=== PATIENT | male | born 1960 | race Caucasian/White ===

== ENCOUNTER 2020-05-11 10:58 | Emergency (ER) | payer OTHER, MEDICARE, SELFPAY ==
[2020-05-11 11:05] VITALS: BP 143/82; PULSE 89; RESP 24; TEMP 36.6; O2SAT 96
--- NOTE | 2020-05-11 11:06 | ECG_ITS ---
Measurements Intervals [place] Rate: 88 P: 38 MO: 197 QRS: 50 QRSD: 89 T: 29 QT: 340 QTc: 412 Interpretive Statements SINUS RHYTHM BASELINE ARTIFACT- I, II, AVR, V1 NORMAL ECG Electronically Signed On 05-11-2020 16:33:38 HUMAN SERVICES CASE MANAGER by Austin Arredondo D.O.
--- NOTE | 2020-05-11 11:37 | ED.GENADULT ---
HPI - General Adult General Chief complaint: Chest Pain Stated complaint: chest pain sob Source: patient Mode of arrival: ambulatory Limitations: no limitations History of Present Illness HPI narrative: Patient presents for evaluation of chest pain. He indicates he has experienced symptoms for the last 2 weeks intermittently. Pain is left-sided, described as a dull ache , currently rated 2 out of 10 in severity. He has experienced dyspnea on exertion but denies cough. Chest pain does not radiate. He has noted that it is particularly difficult to breathe after ambulating down the hallway at home. He does have a history of hypertension, hyperlipidemia, diabetes. He has noted some swelling in BLE. He is a former smoker. No recent surgeries. No recent sick contacts. Last ECHO and stress test were about 15 yrs ago per his reports. Related Data Allergies Allergy/AdvReac Type Severity Reaction Status Date / Time No Known Allergies Allergy Verified 05/11/20 11:32 Review of Systems Review of Systems: Narrative: CONSTITUTIONAL: Denies fever, chills, or sweats. EYES: Denies visual changes, redness, or discharge. ENT: Denies rhinorrhea, congestion, sore throat, or otalgia. CARDIOVASCULAR: Reports chest pain and edema in BLE. Denies palpitations. RESPIRATORY: Reports DAMICO. Denies cough. GASTROINTESTINAL: Denies abdominal pain, nausea, vomiting, or diarrhea. GENITOURINARY: Denies dysuria or hematuria. SKIN: Denies rash or itching. MUSCULOSKELETAL: Denies back pain, joint pain, or myalgia. NEUROLOGIC: Denies headache, numbness, dizziness, or weakness. PSYCHIATRIC: Denies anxiety or depression. [facility] Past Medical History Medical History (Updated 05/11/20 @ 11:45 by Gustabo Bailey, ISIDRO, ) BPH with obstruction/lower urinary tract symptoms Chronic depression Chronic neck pain Family history of colon cancer in mother Migraine without aura and without status migrainosus, not intractable Polyp of colon Vitamin B12 deficiency anemia Surgical History Surgical History (Updated 05/11/20 @ 11:40 by Gustabo Bailey, ISIDRO, ) No pertinent past surgical history Family History Family History Mother Patient's mother is in good health Acute myocardial infarction Carcinoma of colon Father Family history of lung cancer Social History Social History Smoking status: Never smoker Alcohol intake: never Exam Narrative: Exam Narrative: GENERAL: Well-appearing, well-nourished, and in no acute distress. HEAD: Normocephalic, atraumatic. EYES: PERRLA and EOMI. ENT: Nares clear, no rhinorrhea or epistaxis. Mucous membranes moist. Oropharynx without tonsillar hypertrophy exudate or other lesions. Bilateral TMs pearly blanton nonbulging NECK: Supple. No adenopathy or masses. No carotid bruits or JVD CHEST: Clear to auscultation. Effort slightly labored. Tachypneic. Diminished breath sounds throughout. HEART: Regular rate and rhythm. No murmur heard. Normal peripheral pulses. ABDOMEN: Soft, nontender, nondistended, normal active bowel sounds. EXTREMITIES: Normal range of motion. No edema. SKIN: Warm, dry, no rash. NEURO: No focal deficits. Alert and oriented x3. PSYCH: Normal mood and affect. Course Course Emergency Course: This is a 59 year-old male that presents with 2-week history left-sided chest pain. He has new onset dyspnea on exertion with bilateral lower extremity swelling. EKG was conducted here that showed normal sinus rhythm with normal axis and intervals. Patient has significant risk factors for coronary artery disease including hypertension, hyperlipidemia, diabetes, positive family history of CAD, and personal hx of smoking. He will need to be evaluated for cardiac enzymes and assessment of potential heart failure. Upon discussion of transfer, pt requested to be seen at [facility].
== END 2020-05-11 11:46 | disposition short-term general hospital (02) ==
PROVIDERS: Emergency Provider Nurse Practitioner; PCP Family Medicine
DX: R07.9 Chest pain, unspecified (principal); N40.0 Benign prostatic hyperplasia without lower urinary tract symptoms; I10 Essential (primary) hypertension; E78.5 Hyperlipidemia, unspecified; E11.9 Type 2 diabetes mellitus without complications; Z87.891 Personal history of nicotine dependence
CPT/HCPCS: 93005; 99215; G0463

== ENCOUNTER 2020-05-13 13:27 | Outpatient (CLI) | payer OTHER, MEDICARE, SELFPAY ==
--- NOTE | 2020-05-13 13:39 | ECHO_ITS ---
Patient Info Name: Royal Nguyen Age: 59 years : 1960 Gender: Male Ht: 70 in Wt: 250 lbs BSA: 2.41 m2 HR: 65 bpm BP: 143 / 95 mmHg Heart Rhythm: Sinus Rhythm Technical Quality: Good Exam Date: 05/13/2020 1:55 PM Exam Location: [facility] Patient Status: Outpatient Admit Date: 05/13/2020 Staff Ordering Physician: Ta Mares MD Commercial Maintenance Technician: Justice Ortiz RDCS Attending Provider: Ta Mares MD Referring Physician: Vishnu CANDELARIA; Exam Type: CA echo doppler color flow Study Info Indications R06.02 - Shortness of breath Complete two-dimensional, color flow and Doppler transthoracic echocardiogram is performed. History/Risk Factors Dyspnea, Pulmonary hypertension. Summary 1. Complete two-dimensional, color flow and Doppler transthoracic echocardiogram is performed. 2. Left ventricular chamber dimension is normal. 3. Left ventricular systolic function is normal, estimated at 55-60%. 4. There is mildly increased left ventricular wall thickness. 5. The left ventricular diastolic function is normal. 6. E/e' 9 is minimally elevated. 7. Left atrial chamber dimension is mildly enlarged. 8. There is mild aortic valve sclerosis. 9. There is mild aortic valve regurgitation. 10. Moderate pulmonary hypertension, estimated pulmonary arterial systolic pressure is 55 mmHg. Left Ventricle E/e' 9 is minimally elevated. Left ventricular chamber dimension is normal. Left ventricular systolic function is normal, estimated at 55-60%. There is mildly increased left ventricular wall thickness. The left ventricular diastolic function is normal. Right Ventricle Right ventricular chamber dimension is normal. Right ventricular systolic function is normal. Left Atria Left atrial chamber dimension is mildly enlarged. Right Atria Right atrial chamber dimension is normal. Aortic Valve The aortic valve is trileaflet. There is mild aortic valve sclerosis. There is no aortic valve stenosis. There is mild aortic valve regurgitation. Pulmonic Valve There is no pulmonic regurgitation. Mitral Valve There is no mitral valve stenosis. There is no mitral valve regurgitation. Tricuspid Valve There is no tricuspid valve regurgitation. Moderate pulmonary hypertension, estimated pulmonary arterial systolic pressure is 55 mmHg. Pericardium/Pleural There is no pericardial effusion. Inferior Vena Cava Normal inferior vena cava with >50% collapse upon inspiration consistent with normal right atrial pressure, 5 mmHg. Aorta The aortic root size at the sinus of Valsalva is normal. Left Ventricular Outflow Tract Name Value Normal LVOT 2D LVOT Diameter 2.0 cm LVOT Doppler LVOT Peak Gradient 5 mmHg LVOT Mean Gradient 3 mmHg LVOT VTI 25 cm LVOT VTI/AV VTI Ratio 0.8 LVOT Stroke Volume 76 ml LVOT CO 5.3 l/min LVOT CI 2.2 l/min/m2 Mitral
== END 2020-05-13 13:28 | disposition home or self-care (01) ==
PROVIDERS: PCP Family Medicine; Visit Provider Family Medicine
DX: R06.00 Dyspnea, unspecified (principal); R07.9 Chest pain, unspecified; I27.20 Pulmonary hypertension, unspecified; I51.7 Cardiomegaly; I35.8 Other nonrheumatic aortic valve disorders
CPT/HCPCS: 93306

== ENCOUNTER 2020-05-16 07:03 | Outpatient (NON) | payer OTHER, MEDICARE, SELFPAY ==
[2020-05-16 18:47] LABS: SARS-CoV-2 RNA PCR Negative
== END 2020-05-16 07:04 ==
PROVIDERS: PCP Family Medicine; Visit Provider Family Medicine
DX: Z20.822 Contact with and (suspected) exposure to COVID-19 (principal); R07.9 Chest pain, unspecified; R06.00 Dyspnea, unspecified
CPT/HCPCS: C9803; U0003; U0005

== ENCOUNTER 2021-08-18 07:54 | Outpatient (CLI) | payer OTHER, MEDICARE, SELFPAY ==
--- NOTE | ~2021-08-18 | CT_ITS ---
EXAMINATION:CT chest high resolution wo ma DATE: 08/18/2021 08:15 INDICATION: Other forms of dyspnea. TECHNIQUE: Computed tomography (CT) of the chest was performed without intravenous contrast. Automate d exposure control and iterative reconstruction technique were employed. The dose-length product (DLP ) was 650.96 mGy-cm. COMPARISON: None. FINDINGS: There is eventration of anterior right hemidiaphragm. There is mild atelectasis in right mi ddle lobe. A calcification in right lung is consistent with old granulomatous disease. There is a 5 m m nodule in lingula, likely benign. No pleural effusion. The heart size is normal. There are coronary artery calcifications. No pericardial effusion. There is mild thoracic spondylosis. There is mild ch ronic anterior wedging of multiple midthoracic vertebral bodies. IMPRESSION: 1. Eventration of anterior right hemidiaphragm with mild atelectasis in right middle lobe. Reviewed, dictated and finalized at location B. IMPRESSION: 1. Eventration of anterior right hemidiaphragm with mild atelectasis in right m iddle lobe.
--- NOTE | ~2021-08-18 | US_ITS ---
EXAMINATION: US right upper quadrant EXAM DATE: 08/18/2021 08:51 INDICATION: R74.8 - Abnormal levels of other serum enzymes. TECHNIQUE: Multiple grayscale and Doppler images of the abdomen right upper quadrant were obtained (b y a technologist who performed the scan) and subsequently reviewed. There is no prior study for carlos dunlap. FINDINGS: The pancreatic head and body are normal in appearance. The pancreatic tail is not visualized. Mildl y echogenic liver parenchyma, hepatic steatosis. There are no focal liver lesions identified. Ther e is no evidence of intrahepatic biliary duct dilation. Portal venous flow was seen in the hepatoped al, normal direction and has normal Doppler waveform. No right-sided hydronephrosis. Common bile duct measures 4 mm, which is normal. The gallbladder wall is normal in thickness, with ex pected amount of distention. No sonographic evidence of pericholecystic fluid. There is cholelithia sis. Technologist performing exam reports patient did not demonstrate sonographic Baldwin's sign. P lease note that this sign is less reliable in patients who have received pain medication. IMPRESSION: 1. Hepatic steatosis. 2. Cholelithiasis. Reviewed, dictated and finalized at location A.
== END 2021-08-18 07:55 | disposition home or self-care (01) ==
LOC: ANHIMG 07:55
PROVIDERS: PCP Family Medicine; Visit Provider Family Medicine
DX: U07.1 COVID-19 (principal); R74.01 Elevation of levels of liver transaminase levels; R91.1 Solitary pulmonary nodule; R06.09 Other forms of dyspnea; I25.10 Atherosclerotic heart disease of native coronary artery without angina pectoris; K76.0 Fatty (change of) liver, not elsewhere classified; K80.20 Calculus of gallbladder without cholecystitis without obstruction
CPT/HCPCS: 71250; 76705

== ENCOUNTER 2021-08-18 14:26 | Outpatient (CLI) | payer OTHER, MEDICARE, SELFPAY ==
--- NOTE | 2021-08-24 15:24 | WPDPFTINT ---
PFT Procedure Performed PFT Procedure Performed Spirometry with Pre/Post Bronchodilator Plethysmography (Lung Vol) Diffusing Cap (DLCO) Flow Vol Loop PFT Interpretation DOS: 08/18/2021 REQUESTING: Dr. Ta Mares REASON FOR TESTING: Post COVID shortness of breath PULMONARY FUNCTION TESTS Results are reliable and reproducible. Spirometry: pre bronchodilator FEV1 is 85% predicted, 2.56 L. This is normal. FVC is 96% predicted, 3.7 L normal. The FEV1/FVC cc ratio is 69% which is within the normal limits. There is no change with bronchodilator administration. Lung volumes: The total lung capacity is 99% predicted, normal. The residual volume is 81%, normal. RV/TLC is 32% in the normal range. Airway resistance increased. Diffusion: DLCO 91%, normal. Flow volume loop: Normal. IMPRESSION: This full pulmonary function test with bronchodilator shows normal spirometry, normal lung volumes, normal diffusion with increased airway resistance. Lack of response to bronchodilator should not preclude use of clinically indicated. Dahlia White MD
== END 2021-08-18 14:27 | disposition home or self-care (01) ==
LOC: ANHPFT 14:29
PROVIDERS: PCP Family Medicine; Visit Provider Family Medicine
DX: U07.1 COVID-19 (principal); R06.00 Dyspnea, unspecified
CPT/HCPCS: 71250; 76705; 94060; 94726; 94729

== ENCOUNTER → 2021-08-24 14:07 | Outpatient (CLI) | payer OTHER, MEDICARE, SELFPAY ==
--- NOTE | ~2021-08-24 | XR_ITS ---
XR chest 2V DATE: 08/24/2021 14:19 INDICATION: Cough. Acute bronchitis. TECHNIQUE: 2 views COMPARISON: None FINDINGS: Normal heart size. No hilar enlargement. There is mild to moderate elevation of the right d iaphragm. No pulmonary infiltrate or consolidation, pleural effusion or pulmonary vascular congestion or pneumothorax. Suture anchors right humeral and left humeral heads. IMPRESSION: No active cardiopulmonary disease Reviewed, dictated and finalized at location A.
== END ==
PROVIDERS: PCP Family Medicine; Visit Provider Family Medicine
DX: J20.9 Acute bronchitis, unspecified (principal)
CPT/HCPCS: 71046

== ENCOUNTER 2021-11-03 11:18 | Outpatient (CLI) | payer OTHER, MEDICARE, SELFPAY ==
--- NOTE | ~2021-11-03 | MR_ITS ---
EXAMINATION: MR brain/brain stem wo con DATE: 11/03/2021 12:22 INDICATION: Worsening headache and ataxia post fall with posterior head impacted 3 weeks prior. TECHNIQUE: Magnetic resonance imaging (MRI) of the brain and brainstem was performed without intraven ous contrast. Sequences included sagittal and axial T1-weighted SE, axial diffusion-weighted FS SE, a xial T2*-weighted GRE, axial 3D SWAN, axial T2-weighted FLAIR, and axial T2-weighted FSE. Apparent di ffusion coefficient (ADC) maps were created. COMPARISON: None. FINDINGS: There are no areas of restricted diffusion to suggest acute infarction. No intracranial hemorrhage or abnormal intracranial mass lesion. There are a couple small foci of nonspecific increased T2-weighte d signal intensity in the left peritrigonal white matter which is within normal limits for age. There are no intraparenchymal signal abnormalities seen on the other pulse sequences. The ventricles are s ymmetric and normal in size. There are no abnormal extra-axial fluid collections. Flow voids are seen in the cerebral arteries on the T2-weighted sequences consistent with their expected patency. Mucosa l thickening at the right maxillary and bilateral ethmoid sinuses. Visualized orbits and soft tissues are unremarkable. There are no areas of abnormal enhancement on the post contrast images. IMPRESSION: 1. A couple small nonspecific foci of white matter T2 hyperintensity in the left peritrigonal white m atter which is within normal limits for age and may represent sequela of chronic small vessel ischemi c disease. No acute/subacute intracranial process. Reviewed, dictated and finalized at location A. IMPRESSION: 1. A couple small nonspecific foci of white matter T2 hyperintensity in the lef t peritrigonal white matter which is within normal limits for age and may repre sent sequela of chronic small vessel ischemic disease. No acute/subacute intrac ranial process.
== END 2021-11-03 11:19 | disposition home or self-care (01) ==
PROVIDERS: PCP Family Medicine; Visit Provider Family Medicine
DX: S06.9X9A Unspecified intracranial injury with loss of consciousness of unspecified duration, initial encounter (principal); R55 Syncope and collapse; R27.0 Ataxia, unspecified
CPT/HCPCS: 70551

== ENCOUNTER 2021-11-13 11:40 | Outpatient (CLI) | payer OTHER, MEDICARE, SELFPAY ==
--- NOTE | ~2021-11-13 | XR_ITS ---
EXAMINATION: XR elbow RT min 3V DATE: 11/13/2021 12:00 INDICATION: Right elbow pain post fall TECHNIQUE: Anteroposterior, two oblique and lateral views of the right elbow were obtained. COMPARISON: None. FINDINGS: Alignment is normal. No fracture. Mild osteoarthritis at the right elbow characterized by minimal non uniform joint space narrowing and tiny marginal osteophytes. Tiny corticated ossicle along the tip of the coronoid process of the proximal ulna.. Mild soft tissue swelling dorsal to the olecranon.. No r ight elbow joint effusion. IMPRESSION: 1. Mild osteoarthritis at the right elbow. No joint effusion or acute osseous abnormality. Reviewed, dictated and finalized at location B. IMPRESSION: 1. Mild osteoarthritis at the right elbow. No joint effusion or acute osseous a bnormality.
== END 2021-11-13 11:41 | disposition home or self-care (01) ==
LOC: CHSIMG 11:44
PROVIDERS: PCP Family Medicine; Visit Provider Family Medicine
DX: M25.521 Pain in right elbow (principal); G89.29 Other chronic pain
CPT/HCPCS: 73080

== ENCOUNTER 2022-01-27 09:00 | Outpatient (CLI) | payer OTHER, MEDICARE, SELFPAY ==
--- NOTE | 2022-01-27 09:23 | ECG_ITS ---
Measurements Intervals [place] Rate: 76 P: 43 [place]: 179 QRS: 49 QRSD: 105 T: 31 QT: 366 QTc: 413 Interpretive Statements SINUS RHYTHM CANNOT RULE OUT SEPTAL INFARCT, AGE INDETERMINATE ABNORMAL ECG COMPARED TO ECG 05/11/2020 11:13:13 CANNOT RULE OUT SEPTAL INFARCT, AGE INDETERMINATE NOW PRESENT Electronically Signed On 01-27-2022 11:27:27 CDT by Austin Arredondo D.O.
== END 2022-01-27 09:01 | disposition home or self-care (01) ==
LOC: ANHLAB 09:04
PROVIDERS: PCP Family Medicine; Visit Provider Family Medicine
DX: I49.9 Cardiac arrhythmia, unspecified (principal); R94.31 Abnormal electrocardiogram [ECG] [EKG]
CPT/HCPCS: 93005

== ENCOUNTER → 2022-10-27 08:36 | Outpatient (CLI) | payer OTHER, MEDICARE, SELFPAY ==
--- NOTE | ~2022-10-27 | XR_ITS ---
EXAMINATION: XR lumbar spine min 4V DATE: 10/27/2022 08:58 INDICATION: Low back pain TECHNIQUE: Anteroposterior, lateral, and bilateral oblique views of the lumbar spine, and cone-down l ateral view of the lumbosacral junction were obtained. COMPARISON: None. FINDINGS: There are changes of anterior and posterior fusion and laminectomy at L4-5. Bone alignment is normal. There is no fracture. There is mild loss of intervertebral disc space height at L3-4. The vertebral body heights are maintained. Small degenerative osteophytes project from the anterior endpl ates of multiple vertebral bodies. There is mild multilevel facet joint osteoarthritis. IMPRESSION: 1. Surgical changes at L4-5 and mild lumbar spondylosis without acute findings. Reviewed, dictated and finalized at location []
== END ==
PROVIDERS: PCP Family Medicine; Visit Provider Family Medicine
DX: G89.29 Other chronic pain (principal); M54.41 Lumbago with sciatica, right side; M54.42 Lumbago with sciatica, left side; M43.06 Spondylolysis, lumbar region; Z98.890 Other specified postprocedural states
CPT/HCPCS: 72110

== ENCOUNTER 2023-07-18 17:01 | Outpatient (CLI) | payer MEDICARE, SELFPAY ==
--- NOTE | ~2023-07-18 | XR_ITS ---
EXAM: XR knee RT min 4V DATE: 07/18/2023 17:31 HISTORY: M25.561 anterior knee pain, cant bear wt, fall 3 days ago . COMPARISON: None available. FINDINGS: Normal mineralization. No fracture or dislocation. No lytic or blastic lesion. Moderate tr icompartmental arthritis. Chondrocalcinosis. Patellar enthesopathy. Large volume joint fluid. No eros ion or periosteal change. Soft tissues within normal limits. IMPRESSION: No acute osseous finding in the right knee. Large right knee joint effusion. Reviewed, dictated and finalized at location K.
== END 2023-07-18 17:02 | disposition home or self-care (01) ==
LOC: ANHIMG 17:03
PROVIDERS: PCP Family Medicine; Visit Provider Family Medicine
DX: M25.461 Effusion, right knee (principal)
CPT/HCPCS: 73564

== ENCOUNTER 2024-03-20 10:49 | Emergency (ER) | payer OTHER, MEDICARE, SELFPAY ==
[2024-03-20] VITALS (25 sets, daily range): BP systolic 87–143; BP diastolic 38–84; PULSE 76–91; RESP 14–24; TEMP 35.8; O2SAT 84–96
--- NOTE | ~2024-03-20 | XR_ITS ---
EXAMINATION: XR elbow LT min 3V DATE: 03/20/2024 13:36 INDICATION: Left elbow injury post fall TECHNIQUE: Anteroposterior, two oblique and lateral views of the left elbow were obtained. COMPARISON: None. FINDINGS: Alignment is normal. No fracture or joint effusion. Mild osteoarthritis at the left elbow. Prominent posterior predominant soft tissue swelling about the elbow pain the distal upper arm and proximal to mid forearm. IMPRESSION: 1. No left elbow joint effusion or acute osseous abnormality. Reviewed, dictated and finalized at location [facility]
--- NOTE | ~2024-03-20 | CT_ITS ---
EXAMINATION: CTA chest PE abdomen pel DATE: 03/20/2024 12:34 INDICATION: This of breath, left rib and upper abdominal pain and elevated d-dimer post fall 2 days p rior. TECHNIQUE: Computed tomography (CT) pulmonary angiogram of the chest was performed with 100 mL Omnipa que-350 intravenous contrast. Additional 3D reconstructions utilizing coronal maximum intensity proje ction (MIP) were performed. CT of the abdomen and pelvis was performed with intravenous contrast util izing the same contrast bolus following a short delay. Automated exposure control and iterative recon struction technique were employed. The dose-length product was 2430.55 mGy-cm. COMPARISON: None FINDINGS: Chest: Suboptimal contrast opacification of the pulmonary arteries which along with moderate scattered respi ratory motion artifact decreases sensitivity in the subsegmental pulmonary arteries and renders evalu ation some of the smaller subsegmental pulmonary arteries nondiagnostic. No central pulmonary embolis m.. Cardiomegaly. No pericardial effusion. Thoracic aorta is normal in caliber with no dissection or acute traumatic aortic injury. No pathologically enlarged thoracic lymphadenopathy. Mild S-shaped cur vature of the thoracic spine with mild upper thoracic levocurvature and mid thoracic dextrocurvature and moderate spondylosis. Suture anchors for rotator cuff repair at the right humeral head. Chronic nonunited fracture of the posterolateral left eighth and ninth ribs. There are multiple acute left-sided rib fractures. This includes a nondisplaced fracture lateral left second rib, mildly disp laced fractures of the anterior and posterior left third and fourth ribs, mildly displaced fracture o f the posterior left fifth rib and across the left sixth and seventh ribs on the anterior and posteri or margins respectively of the chronic nonunited fractures. Additional minimally displaced fractures of the posterior left 10th and 11th ribs. Small left pleural effusion with dependent compressive atel ectasis in the left upper and lower lobes. Elevation of the right hemidiaphragm. Trace right pleural effusion with minimal dependent atelectasis in the right lower lobe. Additional thicker band of disco id atelectasis in the right lower and middle lobes. Small calcified nodule at the left apex consisten t with old granulomatous disease. No pneumonia, pulmonary edema or pneumothorax. Abdomen/pelvis: Liver, gallbladder, pancreas and bilateral adrenal glands are normal. There are few bilateral low-att enuation renal cysts, the largest in the left kidney measuring up to 12 mm. There is a central serpig inous region of likely active contrast extravasation within the spleen which distributes and nearly e quilibrates with the surrounding spleen on the more delayed imaging which suggests an intraparenchyma l laceration with 4.3 x 1.6 cm intraparenchymal hematoma. No evident laceration at the splenic capsul e or perisplenic hematoma. There is extensive colonic diverticulosis with a sigmoid and descending co grace predominance. There is no adjacent inflammatory change to suggest diverticulitis. No bowel obstr uction. Appendix is not visualized and there is a density along the cecum suggesting surgical clip re lated to prior appendectomy. Bladder is normal. No free intraperitoneal gas or fluid. No pathological ly enlarged abdominal or pelvic lymphadenopathy. L4 laminectomy with L4-L5 anterior and posterior spi nal fusion with interbody bone graft cage and bilateral vertical dilcia and pedicle screw fixation. Mild lumbar spondylosis. Bone marrow harvest site at the left posterior iliac spine. No acute osseous abn ormality in the lumbar spine, pelvis or proximal femurs. IMPRESSION: 1. No central pulmonary embolism. Sensitivity decreased in the segmental pulmonary arteries and essen tially nondiagnostic in some of the smaller subsegmental pulmonary arteries due to combination of mot ion artifact and suboptimal contrast opacification. 2. Small left pleural effusion likely evolving hemothorax related to multiple non to mildly displaced left-sided rib fractures. 3. Dependent predominant atelectasis in both lungs likely related to a small left pleural effusion as well as splinting secondary to the rib fractures. 4. Grade 2 splenic injury with <5 cm intraparenchymal splenic hematoma with active contrast extravasa tion. 5. Extensive diverticulosis. 6. Cardiomegaly. Reviewed, dictated and finalized at location B. [facility] IMPRESSION: 1. No central pulmonary embolism. Sensitivity decreased in the segmental pulmon paulo arteries and essentially nondiagnostic in some of the smaller subsegmental pulmonary arteries due to combination of motion artifact and suboptimal contras t opacification. 2. Small left pleural effusion likely evolving hemothorax related to multiple n on to mildly displaced left-sided rib fractures. 3. Dependent predominant atelectasis in both lungs likely related to a small le ft pleural effusion as well as splinting secondary to the rib fractures. 4. Grade 2 splenic injury with <5 cm intraparenchymal splenic hematoma with act jolanta contrast extravasation. 5. Extensive diverticulosis. 6. Cardiomegaly.
--- NOTE | 2024-03-20 11:14 | ECG_ITS ---
Test Date: 2024-03-20 11:30:02 Measurements Intervals [place] Rate: 80 P: 14 [place]: 176 QRS: 67 QRSD: 165 T: 50 QT: 409 QTc: 474 Interpretive Statements SINUS RHYTHM WITH OCCASIONAL VENTRICULAR PREMATURE COMPLEXES RIGHT BUNDLE BRANCH BLOCK BASELINE ARTIFACT- I, II, III, AVR, AVL, AVF, V4-V6 ABNORMAL ECG No previous ECG available for comparison Electronically Signed On 03-20-2024 11:37:26 DATA SPECIALIST by Austin Arredondo D.O.
--- NOTE | 2024-03-20 11:18 | ED.GENADULT ---
HPI - General Adult General Chief complaint: Back Pain/Injury Stated complaint: syncope Time Seen by Provider: 03/20/24 11:12 Source: patient and family Mode of arrival: other Limitations: no limitations History of Present Illness HPI narrative: 63-year-old obese white male had a syncopal episode in the parking lot coming to the hospital after recent fall 2 days ago down 5 steps at home. was helping patient get out of the car when he suddenly went unresponsive and she helped him to the ground. He has a history of orthostatic hypotension he was nonresponsive for about 15-20 seconds. Then after he woke up it took him about 30-45 seconds to the become alert. There was no postictal state or seizure activity. Same thing happened to him 3 years ago the thought was related to orthostatic hypotension he has had several falls he just felt 2 days ago down 5 steps when he lost his balance injuring his left ribs and left upper extremity causing ecchymosis and difficulty getting up because of the pain. He is on Eliquis for atrial fib diagnosed this past May. Now complains of pain left rib area there is left arm. He sustained a small abrasion to his left knee but denies any pain there. 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 He also was seen in [facility] 8 days ago when 1-2 days prior to that they noted she had slurred speech was confused and had some weakness on the right side. stated that they did MRI that showed a possible stroke low TSH and high vitamin B level. He was started on thyroid medicine , Synthroid and his amiodarone was changed to Cardizem. patient and called their primary care provider yesterday and was told to go the emergency room yesterday. He thought he would get better so he waited until today to come to the hospital. Patient says it hurts to breathe because of pain in his left ribs. Denies any other injury. patient is on [place] 10 up to 6 times a day he has already taken 2 today he is on diazepam 10 mg he took that this morning. Denies any nausea vomiting or diarrhea he has been eating solid foods but not been drinking as much because he does not want have to get up to go the bathroom this hurts so bad. Denies any black stools or melena rash or itching weakness or numbness or paresthesias he has got chronic low back pain denies any other injuries. He also has been taking some ibuprofen since he has fall. Past medical history: AFib on Eliquis since May congestive heart failure orthostatic hypotension hypertension obesity on metformin Past surgical history right shoulder surgery x5 left shoulder x4 back surgery appendectomy ankle surgery At allergies no known drug allergies Related Data Home Medications Medication Instructions Recorded Confirmed apixaban 5 mg tablet (Eliquis) 5 mg PO BID 05/20/23 03/20/24 diltiazem HCl 120 mg capsule,24 120 mg PO DAILY 03/14/24 03/20/24 hr,extended release levothyroxine 125 mcg tablet 125 mcg PO DAILY 03/14/24 03/20/24 irbesartan 150 mg tablet 150 mg PO DAILY 03/20/24 03/20/24 Allergies Allergy/AdvReac Type Severity Reaction Status Date / Time No Known Allergies Allergy Verified 03/20/24 11:32 Review of Systems Review of Systems: All systems reviewed & are unremarkable except as noted in HPI and below PMFSH Past Medical History Medical History Abnormal fasting glucose fasting glucose 102 with hemoglobin A1c 6.0 on 04/28/2021 Acute bronchitis Acute pain of right knee (07/15/23) x-ray on 07/18/2023 reveals moderate osteoarthritis with large joint effusion. No fracture. Aortic regurgitation Arrhythmia (01/27/22) At moderate risk for fall (~2021) Ataxia BMI 34.0-34.9,adult BMI 36.0-36.9,adult BMI 37.0-37.9, adult BMI 38.0-38.9,adult BMI 39.0-39.9,adult BPH with obstruction/lower urinary tract symptoms Cervical spondylosis with myelopathy Chest pain Cholelithiasis gallstones on ultrasound 08/18/2021. Chronic constipation Chronic depression Chronic neck pain CT of cervical spine in the ER 02/28/2022 with multilevel degenerative disc disease and spondylosis worse at C6-C7 and C7-T1. Chronic pain of right elbow (~07/2021) X-ray on 11/13/2021 reveals mild osteoarthritis with soft tissue swelling but no effusion. Closed head injury with brief loss of consciousness (~10/06/21) MRI of the brain on 11/03/2021 was unremarkable except for changes of chronic small vessel disease. Controlled diabetes mellitus Glucose 102 with hemoglobin A1c 5.8 on 04/28/2022. glucose 101 with hemoglobin A1c 5.4 on 04/28/2023.Glucose 92 with hemoglobin A1c 5.4 and urine microalbumin ratio of 3 on 11/11/2023. Coronary artery calcification seen on CAT scan (08/18/21) calcifications of the coronary arteries noted on CT of the chest 08/18/21 . Normal cardiac catheterization January,. COVID-19 (05/22/21) symptoms started and positive test on 05/22/2021 COVID-19 (12/04/21) 2nd episode unvaccinated, tested positive 12/05/2021. COVID-19 long hauler manifesting chronic dyspnea CT of the chest on 08/18/2021 with elevated right hemidiaphragm and mild atelectasis of the right middle lobe with calcified nodule right lung and 5 mm nodule of the lingula with degenerative changes of the thoracic spine and coronary artery calcifications. Diastolic dysfunction with acute on chronic heart failure (05/17/23) echocardiogram on 05/18/2022 with diastolic dysfunction with ejection fraction 65-70% and mild aortic stenosis. Hospitalist admission for acute CHF 05/17/2023. Dyspnea on exertion Elevated hemidiaphragm Elevated liver enzymes (04/28/21) AST 87, ALT 94 on 04/28/2021. AST 83 with ALT 122 on 07/24/2021. GGT 25, AST 31 and ALT 34 on 08/18/2021. AMA less than 20. hepatitis A,B, and C screening negative on 08/18/2021. ADRIANNE positive with Sjogren's antibodies. AST 73 with ALT 93 on 04/28/2022. His AST 45 and ALT 75 on 07/14/2022. GGT elevated at 80 with AST 41 and ALT 71 on 04/28/2023. GGT 39, AST 22, ALT 28 on 11/11/2023. Encounter for prostate cancer screening PSA 0.35 on 04/28/2021. PSA 0.34 on 04/28/2022. 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 Amiodarone discontinued. Insomnia Male erectile dysfunction, unspecified Migraine without aura and without status migrainosus, not intractable Nonalcoholic fatty liver disease Fatty liver on 08/18/2021 ultrasound. Obesity (BMI 30-39.9) Obstructive sleep apnea Paroxysmal atrial fibrillation (05/17/23) Polyp of colon Pulmonary hypertension Refractory obstruction of nasal airway (~01/27/21) Sjogrens syndrome (08/18/21) ADRIANNE positive with SS- A > 8.0 and SS -B > 8.0 with possible Sjogren's syndrome Syncope and collapse TIA (transient ischemic attack) (~03/2024) possible TIA with right hemiparesis, slurred speech evaluated 03/12/2024. MRI of the brain and CT of the brain unremarkable. Vitamin B12 deficiency anemia vitamin B12 level normal at 737 on 04/28/2021. Normal at 1842 on 04/28/2022. Normal at 1126 with hemoglobin 15.0 on 11/11/2023. Worsening headaches Surgical History Surgical History History of back surgery History of nasal surgery History of shoulder surgery No pertinent past surgical history Family History Family History Mother Patient's mother is in good health Acute myocardial infarction Carcinoma of colon Heart disease Father Family history of lung cancer Sibling Diabetes mellitus Hypertension Cerebrovascular accident Social History Social History Smoking status: Former smoker Alcohol intake: current Substance use: never Substance use type: does not use Current Housing: Decline to Answer Concerned About Future Housing: Decline to Answer Difficulty Paying Gas/Electric Bills: Decline to Answer Difficulty Paying for Meds: Decline to Answer Currently Unemployed: Decline to Answer Education: Decline to Answer Difficulty w/ Childcare or Family Care: Decline to Answer Living arrangements: with family Gender identity (if verbalized by the patient): Male Exam Narrative: White male with no distress at rest but when he tries to move to sit up he complains of moderately severe pain on his left lateral chest wall. blood pressure supine 118/65 with pulse 78 standing blood pressure 87/62 with pulse of 91. Respirations were 22 temp 96.4? O2 sat 90% On room air.?Head:? Normocephalic atraumatic.? Eyes conjunctiva pink sclera nonicteric.? Ears externally normal.? Oropharynx is clear with moist mucous membranes no exudates.? Neck is supple no lymphadenopathy nontender full range of motion.? Back is nontender.? Chest left anterior lateral chest wall tender without crepitations..? Lungs are clear without wheezes rales or rhonchi.? Heart is regular rate rhythm without murmurs gallops or rubs.? Abdomen Morbidly obese soft and nontender no hepatosplenomegaly or masses no CVA tenderness no abdominal bruits. he has a small abrasion on healing scab on the right upper quadrant which is nontender.? Extremities no cyanosis clubbing or edema.? left posterior lower arm and upper forearm and elbow ecchymotic mildly tender mildly warm full range of motion. Left knee has a small abrasion superficial which is nontender. his knee is full range of motion stable to all forces and nontender. Neurological she is alert and oriented x4 motor and sensory grossly intact.? Skin is warm and dry without lesions. Does have some diaphoresis of his forehead. He has a very difficult time sitting up in the bed because of his left chest wall pain. Course Vital Signs Vital signs: Vital Signs Temperature 35.8 C L 03/20/24 10:49 Pulse Rate 81 03/20/24 10:49 Respiratory Rate 22 H 03/20/24 10:49 Blood Pressure 143/84 H 03/20/24 10:49 Pulse Oximetry 90 03/20/24 10:49 Oxygen Delivery Room Air 03/20/24 10:49 Temperature 35.8 C L 03/20/24 10:49 Pulse Rate 83 03/20/24 12:43 Respiratory Rate 22 H 03/20/24 12:43 Blood Pressure 119/77 03/20/24 12:01 Pulse Oximetry 92 03/20/24 12:01 Oxygen Delivery Nasal Cannula 03/20/24 11:38 Oxygen Flow Rate 3.5 03/20/24 11:38 Medical Decision Making [facility] Narrative Medical decision making narrative: ?Patient placed in room: Seven with his ? History and physical was performed. CTA chest, CT abdomen and pelvis with IV contrast: negative PE small left pleural effusion likely a valving hemothorax related to multiple non to mildly displaced left rib fractures dependent atelectasis grade 2 splenic injury less than 5 cm intraparenchymal splenic hematoma with active contrast extravasation cardiomegaly diverticulosis. Per radiologist D-dimer 2.31 ABGs pH 7.39 PO2 of 67.6 O2 sat 91.8 bicarb 23.8 on 3.5 L per minute CBC:? H&H 13.1 and 39.5, with normal WBCs and platelets.? Coags Lactic acid and alcohol, troponin normal, ?proBNP 129, magnesium 1.5, BUN 23, rests CMP is normal. X-ray left elbow showed no fracture mild degenerative changes as independently interpreted by me. And x-ray per radiologist of the elbow was negative. Independent Historian: External Source Review: Review of office visit from his primary care last October showed he has a history of chronic bilateral low back pain insomnia, paroxysmal atrial fib diastolic dysfunction with acute on chronic heart failure, chronic constipation high risk for falls, diabetes type 2 without complications, syncope and collapse coronary artery calcifications seen on CT scan August 18, 2021 obstructive sleep apnea with noncompliance with follow through on treatment migraine BPH chronic depression vitamin B12 deficiency anemia chronic neck pain and shoulder pain severe osteoarthritis of both shoulders hypertension occurred mixed hyperlipidemia seasonal allergic rhinitis. Differential Dx includes but not limited to: orthostatic hypotension fractured ribs fractured arm coagulopathy intracerebral hemorrhage fractures pneumonia Medications were Reviewed: home meds reviewed Medications given:Normal saline 1 L bolus, magnesium 2 g IV, Neosporin to left knee abrasion, normal saline 125 mL/hour. Independently Interpreted by me: EKG sinus rhythm with occasional PVC right bundle branch block baseline artifact heart rate 80.? Impression abnormal EKG. ?Independently interpreted by me. Elbow x-ray above Shared decision Making: Evaluation was discussed with the patient his all questions were asked and answered they agree with plan to transfer to [facility] to Dr. Nelson who accepted transfer at 1:44 p.m. Per electronic funds transfer coordinator Effie MATT. Social Situation Impacting Patients Care: Noncompliance, PCP told him to go to ED yesterday. Discussed with Effie MATTpowder core tester nurse coordinator DISCHARGE DIAGNOSIS: recent fall, left rib fractures multiple , grade 2 splenic injury with less than 5 cm intraparenchymal splenic hematoma withactive extravasation, hypomagnesemia, orthostatic hypotension syncope, volume depletion, left elbow injury contusion DISPOSITION : transfer to [facility] CONDITION AT DISCHARGE: stable Vital Signs Vital Signs: Vital Signs Temperature 35.8 C L 03/20/24 10:49 Pulse Rate 81 03/20/24 10:49 Respiratory Rate 22 H 03/20/24 10:49 Blood Pressure 143/84 H 03/20/24 10:49 Pulse Oximetry 90 03/20/24 10:49 Oxygen Delivery Room Air 03/20/24 10:49 Temperature 35.8 C L 03/20/24 10:49 Pulse Rate 83 03/20/24 12:43 Respiratory Rate 22 H 03/20/24 12:43 Blood Pressure 119/77 03/20/24 12:01 Pulse Oximetry 92 03/20/24 12:01 Oxygen Delivery Nasal Cannula 03/20/24 11:38 Oxygen Flow Rate 3.5 03/20/24 11:38 Lab Data 03/20/24 11:35 03/20/24 11:35 Labs: Lab Results 03/20/24 03/20/24 03/20/24 Range/Units 11:30 11:35 11:36 WBC 9.5 (4.8-10.8) K/mm3 RBC 4.28 L (4.70-6.10) M/mm3 Hgb 13.1 L (14.0-18.0) g/dL Hct 39.5 L (40.0-54.0) % MCV 92.3 (78.0-102.0) fL MCH 30.6 (27.0-31.0) pg MCHC 33.2 (32-36) g/dL RDW 13.6 (11.6-14.4) % Plt Count 172 (150-420) K/mm3 MPV 9.2 (8.7-11.0) fl PT 11.1 (9.50-12.1) Seconds INR 1.0 APTT 27.2 (23.9-30.70) Sec D-Dimer 2.31 H* (0.19-0.50) mg/L Sodium 139 (136-145) mmol/L Potassium 4.1 (3.5-5.1) mmol/L Chloride 102 (98-108) mmol/L Carbon Dioxide 27 (21-32) mmol/L Anion Gap 10 (4-12) mmol/L BUN 23 H (7-18) mg/dL Creatinine 1.09 (0.70-1.30) mg/dL Estim Creat Clear Calc Not Reportable Estimated GFR > 60 (59 - ) Glucose 112 H (70-99) mg/dL Calculated Osmolality 292 (285-295) mOsm/kg Lactic Acid 1.5 (0.4-2.0) mmol/L Calcium 8.9 (8.5-10.1) mg/dL Magnesium 1.5 L (1.8-2.4) mg/dL Total Bilirubin 0.8 (0.00-1.00) mg/dL AST 26 (15-37) U/L ALT 46 (16-63) U/L Alkaline Phosphatase 65 (46-116) U/L Troponin I 6.7 (0.00-60.4) ng/L NT-Pro-B Natriuret Pep 129 H (0-125) pg/mL Total Protein 7.1 (6.4-8.2) g/dL Albumin 3.0 L (3.4-5.0) g/dL Ethyl Alcohol < 3 (0-6) mg/dL ABG Data ABG results: 03/20/24 11:17 Puncture Site Right radial ABG pH 7.39 ABG pCO2 40.2 ABG pO2 67.6 L ABG PO2/FiO2 Ratio Not Reportable ABG HCO3 23.8 ABG O2 Saturation 91.8 L ABG O2 Content 17.5 ABG Base Excess -1.0 L A-a Gradient Not Reportable Oxyhemoglobin 90.9 L Total Hemoglobin Not Reportable O2 Delivery Device Nasal cannula O2 Liters/Min 3.5 Discharge Plan Discharge Clinical Impression: Fall down stairs, Syncope and collapse, Multiple fractures of ribs of left side, Spleen hematoma, Acute hypotension, Pleural effusion on left, Hypomagnesemia, Contusion of elbow, left Patient Disposition: Acute Care Hospital Condition: Stable Additional Instructions: accepted to [facility] in [place] by ground ambulance by Dr. Nelson ED Prescriptions: No Action irbesartan 150 mg tablet 150 mg PO DAILY (DME) Blood Glucose Test Strip See Rx Instructions .ROUTE .MEDSUPPLY Qty: 100 3RF Rx Instructions: to test blood glucose once daily (DME) blood-glucose meter Kit See Rx Instructions .Route Qty: 1 0RF Rx Instructions: use to check blood glucose once daily (DME) lancets [BD Ultra Fine Lancets] 33 gauge misc See Rx Instructions .Route Qty: 100 3RF Rx Instructions: use to check blood sugar once daily sildenafil [Viagra] 100 mg tablet 100 mg PO DAILY PRN (Reason: sexual activity) Qty: 90 1RF Rx Instructions: administer 30 minutes to 4 hours before activity fuchs pay with good Rx discount Ozempic 2 mg/dose (8 mg/3 mL) pen injector 2 mg subcut WEEKLY Qty: 3 11RF (DME) pen needle, diabetic [BD Ultra-Fine Micro Pen Needle] 32 gauge x 1/4 needle See Rx Instructions .Route Qty: 50 2RF Rx Instructions: use once weekly with ozempic omeprazole 20 mg capsule,delayed release(DR/EC) 20 mg PO BID Qty: 180 3RF metformin 500 mg tablet extended release 24 hr 500 mg PO DAILY Qty: 90 3RF loratadine 10 mg capsule 10 mg PO BID PRN (Reason: allergy symptoms) Qty: 180 3RF polyethylene glycol 3350 [Miralax] 17 gram/dose powder 17 g PO DAILY Qty: 510 11RF Eliquis 5 mg tablet 5 mg PO BID Patient Comments: started during hospitalization 05/20/2023. sumatriptan succinate [Imitrex] 50 mg tablet See Rx Instructions PO .COMPLEX Qty: 21 11RF Rx Instructions: take 1 tab at onset of headache; if no relief may repeat 1 tab after at least 2 hrs; max = 4 tabs/24 hr PO duloxetine 60 mg capsule,delayed release(DR/EC) 60 mg PO BID Qty: 180 3RF atorvastatin 20 mg tablet 20 mg PO DAILY Qty: 90 3RF mometasone 50 mcg/actuation spray,non-aerosol 1 spray intranasal BID Qty: 51 3RF Rx Instructions: administer into each nostril tamsulosin [Flomax] 0.4 mg capsule 0.4 mg PO . B.i.d. Qty: 180 3RF methocarbamol 500 mg tablet 250 mg PO BID PRN (Reason: muscle spasms) Qty: 90 3RF diazepam 10 mg tablet 10 mg PO BID PRN (Reason: muscle spasm) Qty: 180 1RF zolpidem 10 mg tablet 10 mg PO HS PRN (Reason: insomnia) Qty: 30 5RF diltiazem HCl 120 mg capsule,extended release 24 hr 120 mg PO DAILY Patient Comments: started during hospitalization for TIA 03/12/2024. levothyroxine 125 mcg tablet 125 mcg PO DAILY Patient Comments: started during hospitalization 03/13/2024. hydrocodone-acetaminophen 10-325 mg tablet 1 tablet PO Q4-6H PRN (Reason: pain) Qty: 180 0RF Follow-up/Referrals: Ta Mares MD [Primary Care Provider] -
--- NOTE | 2024-03-20 11:30 | PC.NURSE ---
Pt receiving IV fluids. Resting well in room on cot. No complaints at this time.
[2024-03-20 11:35] LABS: HCO3 ABG 23.8 mmol/L (23-29); Oxygen Content ABG 17.5 %vol (16.0-22.0); Oxygen Saturation ABG 91.8 % (95-97); Oxyhemoglobin 90.9 % (94-100); PCO2 ABG 40.2 mmHg (35-45); PO2 ABG 67.6 mmHg (80-90); pH ABG 7.39 (7.35-7.45)
[2024-03-20 11:36] LABS: Device NASAL CANNULA; Liters per Minute 3.5 LPM; Modified Allen's Test Pass; Site Drawn RIGHT RADIAL
[2024-03-20 11:40] LABS: Hematocrit 39.5 % (40.0-54.0); Hemoglobin 13.1 g/dL (14.0-18.0); Mean Corpuscular HGB Conc 33.2 g/dL (32-36); Mean Corpuscular Hemoglobin 30.6 pg (27.0-31.0); Mean Corpuscular Volume 92.3 fL (78.0-102.0); Mean Platelet Volume 9.2 fl (8.7-11.0); Platelet Count Result 172 K/mm3 (150-420); Red Blood Count 4.28 M/mm3 (4.70-6.10); Red Cell Distribution Width 13.6 % (11.6-14.4); White Blood Count 9.5 K/mm3 (4.8-10.8)
[2024-03-20 11:56] LABS: Partial Thromboplastin Time 27.2 Sec (23.9-30.70); Prothrombin Time 11.1 Seconds (9.50-12.1)
[2024-03-20 11:59] LABS: Lactic Acid Reflex 1.5 mmol/L (0.4-2.0)
[2024-03-20] MEDS: SODIUM CHLORIDE 0.9% IV 1,000 ML 999 ML IV CONT (11:59)
[2024-03-20 12:05] LABS: Magnesium 1.5 mg/dL (1.8-2.4)
[2024-03-20 12:06] LABS: Ethanol < 3 mg/dL (0-6)
[2024-03-20 12:07] LABS: NT Pro B Type Natriuretic Pept 129 pg/mL (0-125)
[2024-03-20 12:07] LABS: Anion Gap 10 mmol/L (4-12); Blood Urea Nitrogen 23 mg/dL (7-18); Carbon Dioxide 27 mmol/L (21-32); Chloride 102 mmol/L (98-108); Estimated Glomerular Filt Rate > 60; Glucose 112 mg/dL (70-99); Osmolality Calculated 292 mOsm/kg (285-295); Potassium 4.1 mmol/L (3.5-5.1); Sodium 139 mmol/L (136-145)
[2024-03-20 12:08] LABS: Alanine Aminotransferase 46 U/L (16-63); Alkaline Phosphatase 65 U/L (46-116); Aspartate Amino Transferase 26 U/L (15-37); Bilirubin,Total 0.8 mg/dL (0.00-1.00); Calcium 8.9 mg/dL (8.5-10.1); Total Protein 7.1 g/dL (6.4-8.2)
[2024-03-20 12:16] LABS: D Dimer 2.31 mg/L (0.19-0.50)
[2024-03-20 12:24] LABS: Troponin I 6.7 ng/L (0.00-60.4)
[2024-03-20] MEDS: MAGNESIUM SULF 2 GM/WATER 50ML 2 GM/50 ML BAG IVPB (12:40)
--- NOTE | 2024-03-20 12:50 | PC.NURSE ---
Pt back in room from CT scan. Resting comfortable on cot, dozing off between visits from RN. Pt left and will return within the hour. MD awaiting CT results for further decision making.
[2024-03-20] MEDS: SODIUM CHLORIDE 0.9% IV 1,000 ML 125 ML IV CONT (14:16)
== END 2024-03-20 14:41 | disposition short-term general hospital (02) ==
PROVIDERS: Emergency Provider Emergency Medicine; PCP Family Medicine
DX: R55 Syncope and collapse (principal); S22.42XA Multiple fractures of ribs, left side, initial encounter for closed fracture; S36.029A Unspecified contusion of spleen, initial encounter; I95.9 Hypotension, unspecified; J90 Pleural effusion, not elsewhere classified; E83.42 Hypomagnesemia; S50.02XA Contusion of left elbow, initial encounter; I48.91 Unspecified atrial fibrillation; E11.9 Type 2 diabetes mellitus without complications; I11.0 Hypertensive heart disease with heart failure; I50.9 Heart failure, unspecified; Z79.01 Long term (current) use of anticoagulants; Z87.891 Personal history of nicotine dependence; W10.9XXA Fall (on) (from) unspecified stairs and steps, initial encounter
CPT/HCPCS: 36415; 36600; 71275; 73080; 74177; 80053; 82077; 82805; 83605; 83735; 83880; 84484; 85018; 85027; 85380; 85610; 85730; 93005; 96361; 96365; 96366; 99285; J3475; J7030; Q9967

== ENCOUNTER 2024-09-17 10:02 | Emergency (ER) | payer OTHER, MEDICARE, SELFPAY ==
[2024-09-17 10:17] VITALS: BP 162/79; PULSE 50; RESP 16; TEMP 36.4; O2SAT 94
--- NOTE | 2024-09-17 10:19 | ED_ITS ---
HPI - Dental/Oral General Chief complaint: Dental/Oral Stated complaint: Facial Swelling/Left Side Time Seen by Provider: 09/17/24 10:36 Mode of arrival: ambulatory Limitations: no limitations History of Present Illness HPI Narrative: 63-year-old male presents with for swelling to the left side of his face that he noticed this morning when he woke up. He denies dental pain. He reports that it is tender when he pushes on it. Denies redness, warmth. He denies ear pain, drainage from the ear. Related Data Home Medications Medication Instructions Recorded Confirmed Last Taken Type irbesartan 150 mg tablet 150 mg PO DAILY 03/20/24 08/21/24 03/20/24 History 0900 furosemide 20 mg tablet mg 09/17/24 Unknown History Allergies Allergy/AdvReac Type Severity Reaction Status Date / Time No Known Allergies Allergy Verified 03/20/24 11:32 Review of Systems Review of Systems: CONSTITUTIONAL: Denies malaise, chills, sweats, or fever. EYES: Denies visual changes ENT: Denies rhinorrhea, congestion, sinus pain, otalgia or sore throat. Denies dental pain. Reports swelling in front of the left ear CARDIOVASCULAR: Denies chest pain, palpitations RESPIRATORY: Denies cough or dyspnea. SKIN: Denies rash or itching. MUSCULOSKELETAL: Denies myalgia. NEUROLOGIC: Denies numbness, weakness, or headache. All systems reviewed & are unremarkable except as noted in HPI and below PMFSH Past Medical History Medical History (Updated 09/17/24 @ 10:46 by Tierney Meadows NP) Alcohol abuse (~08/21/24) reports patient is drinking 1/5 of liquor daily 08/21/2024. TIA (transient ischemic attack) (~03/2024) possible TIA with right hemiparesis, slurred speech evaluated 03/12/2024. MRI of the brain and CT of the brain unremarkable. 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 Amiodarone discontinued. TSH 4.5 with free T4 1.3 on 05/08/2024. BMI 34.0-34.9,adult Insomnia Acute pain of right knee (07/15/23) x-ray on 07/18/2023 reveals moderate osteoarthritis with large joint effusion. No fracture. Elevated hemidiaphragm Paroxysmal atrial fibrillation (05/17/23) Diastolic dysfunction with acute on chronic heart failure (05/17/23) echocardiogram on 05/18/2022 with diastolic dysfunction with ejection fraction 65-70% and mild aortic stenosis. Hospitalist admission for acute CHF 05/17/2023. Male erectile dysfunction, unspecified Chronic constipation At moderate risk for fall (~2021) Cervical spondylosis with myelopathy Encounter for prostate cancer screening PSA 0.35 on 04/28/2021. PSA 0.34 on 04/28/2022. PSA 0.39 on 05/08/2024. Controlled diabetes mellitus Glucose 102 with hemoglobin A1c 5.8 on 04/28/2022. glucose 101 with hemoglobi n A1c 5.4 on 04/28/2023.Glucose 92 with hemoglobin A1c 5.4 and urine microalbumin ratio of 3 on 11/11/2023. Glucose 98, hemoglobin A1c 5.5, microalbumin ratio of 6 with GFR 98 on 05/08/2024. Worsening headaches Arrhythmia (01/27/22) COVID-19 (12/04/21) 2nd episode unvaccinated, tested positive 12/05/2021. Chronic pain of right elbow (~07/2021) X-ray on 11/13/2021 reveals mild osteoarthritis with soft tissue swelling but no effusion. Closed head injury with brief loss of consciousness (~10/06/21) MRI of the brain on 11/03/2021 was unremarkable except for changes of chronic small vessel disease. Ataxia Syncope and collapse BMI 37.0-37.9, adult Sjogrens syndrome (08/18/21) ADRIANNE positive with SS- A > 8.0 and SS -B > 8.0 with possible Sjogren's syndrome Coronary artery calcification seen on CAT scan (08/18/21) calcifications of the coronary arteries noted on CT of the chest 08/18/21 . Normal cardiac catheterization January,. Cholelithiasis gallstones on ultrasound 08/18/2021. Nonalcoholic fatty liver disease Fatty liver on 08/18/2021 ultrasound. Obesity (BMI 30-39.9) COVID-19 long hauler manifesting chronic dyspnea CT of the chest on 08/18/2021 with elevated right hemidiaphragm and mild atelectasis of the right middle lobe with calcified nodule right lung and 5 mm nodule of the lingula with degenerative changes of the thoracic spine and coronary artery calcifications. COVID-19 (05/22/21) symptoms started and positive test on 05/22/2021 Acute bronchitis Elevated liver enzymes (04/28/21) AST 87, ALT 94 on 04/28/2021. AST 83 with ALT 122 on 07/24/2021. GGT 25, AST 31 and ALT 34 on 08/18/2021. AMA less than 20. hepatitis A,B, and C screening negative on 08/18/2021. ADRIANNE positive with Sjogren's antibodies. AST 73 with ALT 93 on 04/28/2022. His AST 45 and ALT 75 on 07/14/2022. GGT elevated at 80 with AST 41 and ALT 71 on 04/28/2023. GGT 39, AST 22, ALT 28 on 11/11/2023. GGT 61, AST 40, ALT 41 on 05/08/2024. BMI 38.0-38.9,adult Refractory obstruction of nasal airway (~01/27/21) BMI 36.0-36.9,adult Obstructive sleep apnea BMI 39.0-39.9,adult Aortic regurgitation Pulmonary hypertension Chest pain Dyspnea on exertion Migraine without aura and without status migrainosus, not intractable BPH with obstruction/lower urinary tract symptoms Chronic depression Vitamin B12 deficiency anemia vitamin B12 level normal at 737 on 04/28/2021. Normal at 1842 on 04/28/2022. Normal at 1126 with hemoglobin 15.0 on 11/11/2023. Level normal at 819 with hemoglobin 15.0 on 05/08/2024. Chronic neck pain CT of cervical spine in the ER 02/28/2022 with multilevel degenerative disc disease and spondylosis worse at C6-C7 and C7-T1. Family history of colon cancer in mother Polyp of colon Abnormal fasting glucose fasting glucose 102 with hemoglobin A1c 6.0 on 04/28/2021 Surgical History Surgical History History of shoulder surgery History of back surgery History of nasal surgery No pertinent past surgical history Family History Family History Mother Patient's mother is in good health Acute myocardial infarction Carcinoma of colon Heart disease Father Family history of lung cancer Sibling Diabetes mellitus Hypertension Cerebrovascular accident Social History Social History (Updated 08/21/24 @ 08:02 by Ade Vitale MA) Smoking status: Former smoker Alcohol intake: former Substance use: never Substance use type: does not use Current Housing: Decline to Answer Concerned About Future Housing: Decline to Answer Difficulty Paying Gas/Electric Bills: Decline to Answer Difficulty Paying for Meds: Decline to Answer Currently Unemployed: Decline to Answer Education: Decline to Answer Difficulty w/ Childcare or Family Care: Decline to Answer Living arrangements: with family Gender identity (if verbalized by the patient): Male Comments At time of signature, agree with nursing past medical, surgical, social and family history. There is no relevant family history pertinent to the presenting complaint Exam Narrative: GENERAL: Well-appearing, well-nourished, and in no acute distress. HEAD: Normocephalic, atraumatic. EYES: PERRLA, sclera clear ENT: Nares clear, turbinates pink, no rhinorrhea or epistaxis. Mucous membranes moist. TM pearly blanton with sharp light reflex bilaterally; no tragal tenderness. Oropharynx without erythema or lesions. Tonsils not enlarged and without exudate. No Missing teeth, broken teeth, caries. Parotid gland swelling and mild tenderness noted without erythema, induration. NECK: Supple. No lymphadenopathy. CHEST: No respiratory distress. Speaks in full sentences. HEART: Regular rate and rhythm. SKIN: Warm, dry, no visible rash. NEURO: Alert and oriented x3. PSYCH: Normal mood and affect Course Course Emergency Course: Patient is aware of diagnosis, understands and agrees to treatment plan. Anticipatory guidance given. Patient agrees to follow-up as directed and is aware of reasons to seek care at the emergency department. Portions of this record may have been created with voice recognition software Level of Care: Express Care Visit Vital Signs Vital signs: Vital Signs Temperature 97.5 F L 09/17/24 10:17 Pulse Rate 50 L 09/17/24 10:17 Respiratory Rate 16 09/17/24 10:17 Blood Pressure 162/79 H 09/17/24 10:17 Pulse Oximetry 94 09/17/24 10:17 Oxygen Delivery Room Air 09/17/24 10:17 Temperature 97.5 F L 09/17/24 10:17 Pulse Rate 50 L 09/17/24 10:17 Respiratory Rate 16 09/17/24 10:17 Blood Pressure 162/79 H 09/17/24 10:17 Pulse Oximetry 94 09/17/24 10:17 Oxygen Delivery Room Air 09/17/24 10:17 Reviewed. MDM - Dental/Oral MDM Narrative Medical decision making narrative: I evaluated this in the [facility] care. History is obtained from patient who is an independent historian and physical exam was performed. Available medical records were reviewed. Exam findings and relevant testing show no acute concerns or changes; patient is non-toxic appearing and is in no distress. Patients pain and complaint coupled with physical findings are consistant with dentalgia. There are no focal signs of space occupying lesions that are compromising to the airway; no dysphagia, odynophagia, dysphonia, or dyspnea. No uvular deviation or soft palate edema. Patient is non-toxic appearing. The floor of the mouth is soft with no signs of Lan's Angina; no induration below mandible, no neck pain. Patient is without trismus or drooling and able to swallow secretions. Patient is felt appropriate for discharge home with dental follow up. Differential diagnosis and treatment plan were discussed with the patient. Patient agrees with discussion and after shared medical decision making agrees with plan of care. All questions were answered to the patient's satisfaction. Patient is appropriate for outpatient treatment and follow-up. Differential Diagnosis Differential diagnosis: Likely gingival abscess, dental caries, toothache, dental abscess, fracture of tooth and aphthous ulcer Critical Care Time Critical Care Time Critical Care Time: No Discharge Plan Discharge Clinical Impression: Sialadenitis Patient Disposition: Home Condition: Stable Instructions: Antibiotic Form, Sialoadenitis (ED) Additional Instructions: Please follow up with your Primary Care Doctor. Rest and apply moist heat 3-4 times daily for 10-15 minutes. You can use sour candies to help encouraged salivation. Take Motrin 600mg every 8 hours with food for pain. Please take Antibiotics as directed. If you experience any worsening redness, swelling, streaking (red lines), fever or chills please go to the ER Patient Language: Cameroonian Prescriptions: New amoxicillin-pot clavulanate 875-125 mg tablet 1 tablet PO Q12H 10 Days Qty: 20 0RF No Action irbesartan 150 mg tablet 150 mg PO DAILY furosemide 20 mg tablet sildenafil [Viagra] 100 mg tablet 100 mg PO DAILY PRN (Reason: sexual activity) Qty: 90 1RF Rx Instructions: administer 30 minutes to 4 hours before activity fuchs pay with good Rx discount Ozempic 2 mg/dose (8 mg/3 mL) pen injector 2 mg subcut WEEKLY Qty: 3 11RF (DME) pen needle, diabetic [BD Ultra-Fine Micro Pen Needle] 32 gauge x 1/4 needle See Rx Instructions .Route Qty: 50 2RF Rx Instructions: use once weekly with ozempic omeprazole 20 mg capsule,delayed release(DR/EC) 20 mg PO BID Qty: 180 3RF metformin 500 mg tablet extended release 24 hr 500 mg PO DAILY Qty: 90 3RF atorvastatin 20 mg tablet 20 mg PO DAILY Qty: 90 3RF mometasone 50 mcg/actuation spray,non-aerosol 1 spray intranasal BID Qty: 51 3RF Rx Instructions: administer into each nostril tamsulosin [Flomax] 0.4 mg capsule 0.4 mg PO . B.i.d. Qty: 180 3RF methocarbamol 500 mg tablet 250 mg PO BID PRN (Reason: muscle spasms) Qty: 90 3RF diltiazem HCl 120 mg capsule,extended release 24 hr 120 mg PO DAILY Qty: 100 3RF gabapentin 300 mg capsule 300 mg PO TID Qty: 300 3RF levothyroxine 125 mcg tablet 125 mcg PO DAILY Qty: 100 3RF (DME) lancets [OneTouch Delica Plus Lancet] 33 gauge misc See Rx Instructions .Route Qty: 100 3RF Rx Instructions: use once daily (DME) blood-glucose meter [OneTouch Verio Flex meter] Misc See Rx Instructions .Route Qty: 1 2RF Rx Instructions: use once daily sumatriptan succinate [Imitrex] 50 mg tablet See Rx Instructions PO .COMPLEX Qty: 21 11RF Rx Instructions: take 1 tab at onset of headache; if no relief may repeat 1 tab after at least 2 hrs; max = 4 tabs/24 hr PO diazepam 10 mg tablet 10 mg PO BID PRN (Reason: muscle spasm) Qty: 180 1RF duloxetine 60 mg capsule,delayed release(DR/EC) 60 mg PO BID Qty: 180 3RF Eliquis 5 mg tablet 5 mg PO BID Qty: 30 5RF loratadine 10 mg capsule 10 mg PO BID PRN (Reason: allergy symptoms) Qty: 180 3RF polyethylene glycol 3350 [Miralax] 17 gram/dose powder 17 g PO DAILY Qty: 510 11RF hydrocodone-acetaminophen 10-325 mg tablet 1 tablet PO Q4-6H PRN (Reason: pain) Qty: 180 0RF (DME) OneTouch Verio test strips Strip See Rx Instructions .Route Qty: 100 3RF Rx Instructions: use once daily Follow-up/Referrals: Ta Mares MD [Primary Care Provider] - Time of Disposition: 10:46
--- OUTSIDE RECORDS SUMMARY | 2024-09-17 10:36 | XMS_ITS | Encounter Summary ---
Author Organization [facility] Address [address] [place] [address] Phone Care Team Providers Care Cut Order Hand Name Role Phone Ta Mares MD Primary Care Provider [phone] Chaz Mobley MD Unavailable Encounter Details Date Type Department Care Team (Latest Contact Info) Description 08/18/2021 Orders Only BILL IM CARDIOLOGY Scanning, Provider Social History Tobacco Use Types Packs/Day Years Used Date Smoking Tobacco: Former Smokeless Tobacco: Never Alcohol Use Standard Drinks/Week Comments No 0 (1 standard drink = 0.6 oz pur e alcohol) AUDIT-C Answer Date Recorded Q1: How often do you have a drink containing alc ohol? 2-4 times a month 04/15/2021 Q2: How many drinks containi ng alcohol do you have on a typical day when you are drinking? 1 or 2 04/15/2021 Q3: How often do you have si x or more drinks on one occasion? 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 Gender Identity Not on file Sexual Orientation Not on file documented as of this encounter Plan of Treatment Not on file documented as of this encounter Procedures Procedure Name Priority Date/Time Associated Diagnosis Comments SCAN - RADIOLOGY/IMAGING 08/18/2021 documented in this encounter Results * SCAN - RADIOLOGY/IMAGING (08/18/2021) Anatomical Region Laterality Modality Other us Provider Scanning Edited Result - Final documented in this encounter Visit Diagnoses Not on filedocumented in this encounter Additional Health Concerns Infection Onset Date Last Indicated Resolved Time COVID: Suspected 05/17/2023 05/17/2023 05/17/2023 3:53 PM [employer] documented as of this encounter Care Teams Cut Order Hand Relationship Specialty Start Date End Date Ta Mares MD [address] [address] PCP - General 04/06/17 Chaz Mobley MD [address] [place] [address] DR KAUR [address] [place] [address] Consulting Physician Pulmonary Disease 05/20/23 documented as of this encounter
--- OUTSIDE RECORDS SUMMARY | 2024-09-17 10:37 | XMS_ITS | Encounter Summary ---
Author Organization [facility] Address [address] [place] [address] Care Team Providers Care Ui Software Developer Name Role Phone Ta Mares MD Primary Care Provider [phone] Chaz Mobley MD Unavailable Reason for Visit * Reason Onset Date Comments spk w/nurse 09/07/2024 Encounter Details Date Type Department Care Team (Late st Contact Info) Description 09/07/2024 Telephone [facility] [address] [facility] [address] [place] [address] Nathaniel Palacios MD [address] [facility] [id number] [place], [place] [id number] spk w/nurse Social History Tobacco Use Types Packs/Day Years Used Date Smoking Tobacco: Former Smokeless Tobacco: Never Alcohol Use Standard Drinks/Week Comments Yes 2 (1 standard drink = 0.6 oz pur e alcohol) AUDIT-C Answer Date Recorded Q1: How often do you have a drink containing alc ohol? Never 04/11/2024 Average Number of Drinks Not on file 024 Frequency of Binge Drinking Not on file 04/01 Personal Safety Answer Date Recorded Have you ever been in or are you currently in a harmful physical or emotional relationship or is someone making you feel afraid or unsafe? 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 It would be reasonable to try again with lumbar transforaminal epidural steroid injection bilateralL3-4 if interested - I placed order for that procedure in the above documentation encounter OK to schedule/add on as possible. Tiffanie Palacios * Telephone Encounter - Marianna De La Cruz RN - 09/07/2024 1:24 PM CDT Patient Marcia called stating her had an lumbar MRI on 09/03/24 and they are waiting to here back from Dr Palacios to see if he wants to proceed with a procedure depending on the results She stated she received a message from our office requesting Dino to see Lizzie Mcclure NP on 09/13 or09/[address] Palacios on the 09/12/24. The purpose of him coming in on 09/12/24 was a procedure not a follow up visit. Patient cannot come on the 09/13/24 or 09/14/24 to see Lizzie Mcclure NP and will not come in on 09/12/[address] Palacios does not want to do a procedure. Instructed would request Dr Palacios review the lumbar MRI but there may not be enough time to get insurance authorization for a procedure for 09/12/[address] Palacios determines after reviewingMRI. Marcia verbalizes understanding and stated if this is the situation they will reschedule to another day if Dr Palacios wants to do a procedure. documented in this encounter Plan of Treatment Not on file documented as of this encounter Goals Goal Patient Goal Type Associated Problems Recent Progress Patient-Stated? Author CCM Chronic Pain Care Plan Chronic Care Management Worsening( 1:06 PM CDT) No Sade Arango, RN Note: Problem: Chronic Pain Goals: 1. Minimize further functional decline 2. Maximize quality of life 3. Control pain Strategies: - Activity/exercise program recommendation - Conservative stepwise pain medicine strategy with multi-disciplinary approach - Recommend healthy lifestyle strategies and compensatory methods as needed documented as of this encounter Visit Diagnoses Not on filedocumented in this encounter Care Teams Ui Software Developer Relationship Specialty Start Date End Date Ta Mares MD [address] [address] PCP - General 04/06/17 Chaz Mobley MD [address] [place] [address] [address] Consulting Physician Pulmonary Disease 05/20/23 documented as of this encounter
--- OUTSIDE RECORDS SUMMARY | 2024-09-17 10:37 | XMS_ITS | Referral Summary ---
Author Organization [facility] Address [address] [place] [address] Care Team Providers Care Neck Pinner Name Role Phone Ta Mares MD Primary Care Provider [phone] Chaz Mobley MD Unavailable Encounters Date Type Department Care Team Description 09/17/2024 Telephone [facility] [address] [place] [address] for Advanced Medicine [address] [place] [address] Nathaniel Palacios MD PMC Preprocedure; Anticoagulation 09/07/2024 Documentation [facility] [address] [place] [address] [facility] [address] [place] [address] Nathaniel Palacios MD Test Results 09/07/2024 Telephone [facility] [address] [place] [address] Nathaniel Palacios MD spk w/nurse 09/03/2024 3:36 PM CDT - 09/03/2024 11:59 PM CDT Hospital Encounter [facility] [address] [place] [address] [id number] Lumbar post-laminectomy syndrome; Lumbar radiculopathy Discharge Disposition: Discharge to home or self care 08/06/2024 1:00 PM CDT - 08/06/2024 11:59 PM CDT Hospital Encounter [facility] [address] [place] [address] for Advanced Medicine [address] [place] [address] Nathaniel Palacios MD Lumbar post-laminectomy syndrome (Primary Dx); Lumbar radiculopathy; Spinal stenosis of lumbar region with neurogenic claudication Discharge Disposition: Discharge to home or self care 08/01/2024 Telephone [facility] [address] [facility] [address] [place] [address] Nathaniel Palacios MD spk w/nurse from Last 3 Months Allergies No known active allergies Medications atorvastatin (LIPITOR) 20 mg tablet Take 1 tablet (20 mg total) by mouth daily Active loratadine (CLARITIN) 10 mg tablet TAKE ONE TABLET BY MOUTH DAILY NEEDED FOR ALLERGY SYMPTOMS Active metFORMIN XR (GLUCOPHAGE XR) 500 mg 24 hr tablet Take 1 tablet (500 mg total) by mouth daily with breakfast Active omeprazole (PriLOSEC) 20 mg capsule Take 1 capsule (20 mg total) by mouth daily Active SUMAtriptan (IMITREX) 50 mg tablet Take 1 tablet (50 mg total) by mouth once as needed Active tamsulosin (FLOMAX) 0.4 mg extended release capsule Take 1 capsule (0.4 mg total) by mouth 2 (two) times a day Active albuterol HFA (PROVENTIL HFA,VENTOLIN HFA,PROAIR HFA) 90 mcg/actuation inhaler INHALE 2 PUFFS BY MOUTH EVERY 4 HOURS NEEDED FOR SHORTNESS OF BREATH OR WHEEZING Active fluticasone propionate (FLONASE) 50 mcg/actuation nasal spray Administer into each nostril daily Active nitroglycerin (NITROSTAT) 0.4 mg SL tabletIndicatio ns:acute episode of anginal pain Place 1 tablet (0.4 mg total) under the tongue every 5 (five) minutes as needed for chest pain May repeat dose q 5 min, up to 3 doses total. If chest pain persists after the 3rd dose, call 911. 25 tablet 6 Active methocarbamoL (ROBAXIN) 500 mg tablet Take 1 tablet (500 mg total) by mouth 2 (two) times a day 20 tablet Active naloxone (NARCAN) 4 mg/actuation spray,non-aeros ol Active DULoxetine DR (CYMBALTA) 60 mg capsule Take 1 capsule (60 mg total) by mouth 2 (two) times a day Active aspirin 81 mg chewable tablet Take 1 tablet (81 mg total) by mouth daily Active HYDROcodone-roosevelt taminophen (NORCO) 10-325 mg per tablet Take 1 tablet by mouth Active Ozempic 2 mg/dose (8 mg/3 mL) pen injector injection 2 MG (0.75 ML) SUBCUTANEOUSLY WEEKLY Active irbesartan (AVAPRO) 150 mg tablet Take 0.5 tablets (75 mg total) by mouth daily Active zolpidem (AMBIEN) 10 mg tablet Take 1 tablet (10 mg total) by mouth nightly as needed for sleep Active OneTouch Verio test strips strip Active polyethylene glycol (MIRALAX) 17 gram/dose bulk powder DISSOLVE 17 GRAMS IN LIQUID AND TAKE BY MOUTH DAILY Active mometasone (NASONEX) 50 mcg/actuation nasal spray Active acetaminophen (TYLENOL) 325 mg tablet Take 2 tablets (650 mg total) by mouth every 6 (six) hours Active OneTouch Verio Flex meter [facility] [place] [place] daily Active diazePAM (VALIUM) 10 mg tablet Take 1 tablet (10 mg total) by mouth every 8 (eight) hours as needed Active dilTIAZem CD 120 mg 24 hr capsule Take 1 capsule (120 mg total) by mouth daily Active docusate sodium (COLACE) 100 mg capsule Take 1 capsule (100 mg total) by mouth 2 (two) times a day Active gabapentin (NEURONTIN) 300 mg capsule Active OneTouch Delica Plus Lancet [facility] daily Active Synthroid 125 mcg tablet Take 1 tablet (125 mcg total) by mouth daily Active lidocaine (ASPERCREME) 4 % adhesive patch,medicated Apply to left chest. Apply only once for up to 12 hours within a 24 hour period. Patches may be cut into smaller sizes with scissors prior to the removal of the release liner. Clothing may be worn over the area of application. For more information use the [employer] link. 024 Active oxyCODONE (ROXICODONE) 10 mg tablet Take 1 tablet (10 mg total) by mouth every 4 (four) hours as needed for pain Active diltiazem (TIAZAC) 120 mg 24 hr capsule Take 1 capsule (120 mg total) by mouth daily 025 Active Eliquis 5 mg tablet TAKE 1 TABLET EVERY 12 HOURS 180 tablet 3 025 Active apixaban (ELIQUIS) 5 mg tabletIndicatio ns:atrial fibrillation Take 1 tablet (5 mg total) by mouth every 12 (twelve) hours 180 tablet 3 024 2024 Discontinued Active Problems Problem Noted Date Diagnosed Date Thoracic back pain 04/11/2024 Closed fracture of rib of left side 03/20/2024 Fall down stairs 03/20/2024 Dysarthria 03/13/2024 Hypothyroidism 03/13/2024 Right arm weakness 03/13/2024 Syncope and collapse 12/28/2023 Lumbar radiculopathy 12/23/2023 Spinal stenosis of lumbar re gion with neurogenic claudication 07/08/2023 On continuous oral anticoagulation 06/21/2023 Paroxysmal A-fib 05/20/2023 Acute on chronic diastolic congestive heart fail ure 05/18/2023 PAGE (obstructive sleep apnea) 05/18/2023 COPD exacerbation 05/17/2023 Lumbar post-laminectomy syndrome 08/11/2022 Osseous and subluxation sten osis of intervertebral foramina of cervical region 06/24/2022 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 06/08/2022 Cervicalgia 06/01/2022 Cervicogenic headache 06/01/2022 Migraine without aura and wi thout status migrainosus, not intractable 06/01/2022 Abnormal EKG 02/04/2022 Overview (02/04/2022): Added automatically from request for surgery [id number] Deviated nasal septum 03/17/2021 Assessment & Plan (04/21/2021 4:28 PM CLINIC PHYSICIAN): Avoid nose blowing for one more week Continue nasal saline as often as possible Finish Augmentin Assessment & Plan (03/17/2021 12:19 PM CLINIC PHYSICIAN): Septoplasty and Inferior Turbinate Reduction bilaterally Risks and complications include anesthesia, bleeding, infection, injury to surrounding structures including brain with csf leak, eyes with vision changes, nasal mucosa, atrophic rhinitis, septal hematoma, septal perforation, benign versus malignant pathology, no guarantee that sense of smell would be exactly the same, need for further surgery. Hypertrophy of both inferior nasal turbinates Assessment & Plan (04/21/2021 4:28 PM CLINIC PHYSICIAN): Avoid nose blowing for one more week Continue nasal saline as often as possible Finish Augmentin Assessment & Plan (03/17/2021 12:19 PM CLINIC PHYSICIAN): Septoplasty and Inferior Turbinate Reduction bilaterally Risks and complications include anesthesia, bleeding, infection, injury to surrounding structures including brain with csf leak, eyes with vision changes, nasal mucosa, atrophic rhinitis, septal hematoma, septal perforation, benign versus malignant pathology, no guarantee that sense of smell would be exactly the same, need for further surgery. Resolved Problems Problem Noted Date Diagnosed Date Resolved Date Acute respiratory failure with hypoxia 05/18/2023 08/26/2023 Elevated troponin 02/04/2022 08/26/2023 Overview (02/04/2022): Added automatically from request for surgery [id number] SOB (shortness of breath) 02/04/2022 Overview (02/04/2022): Added automatically from request for surgery [id number] Immunizations Immunization Administration Dates Next Due Influenza, Quadrivalent, Rec ombinant, Egg Free, Preservative Free, Intramuscular 02/12/2020 Influenza, Quadrivalent, Spl it, Preservative Free, Intramuscular 05/20/2023 Influenza, Trivalent, IM (MDV) 03/05/2015,2013 Influenza, Unspecified 02/10/2022 Social History Tobacco Use Types Packs/Day Years Used Date Smoking Tobacco: Former Smokeless Tobacco: Never Tobacco Cessation:Counseling Given: Not Answered Alcohol Use Standard Drinks/Week Comments Yes 2 [...] on file Legal Sex Male 12:30 AM CLINIC PHYSICIAN Gender Identity Not on file Sexual Orientation Not on file Last Filed Vital Signs Vital Sign Reading Time Taken Comments Blood Pressure 166/96 08/06/2024 1:12 PM CDT 110 Pulse 80 08/06/2024 1:12 PM CDT Temperature 36.1 C (97 F) 08/06/2024 1:12 PM CDT Respiratory Rate 12 08/06/2024 1:12 PM CDT Oxygen Saturation 91% 08/06/2024 1:12 PM CDT Inhaled Oxygen Concentration - - Weight 113.4 kg (250 lb) 09/03/2024 3:42 PM CDT Height 177.8 cm (5' 10 ) 09/03/2024 3:42 PM CDT Body Mass Index 35.87 09/03/2024 3:42 PM CDT Plan of Treatment Not on file Goals Goal Patient Goal Type Associated Problems Recent Progress Patient-Stated? Author CCM Chronic Pain Care Plan Chronic Care Management Worsening( 1:06 PM CDT) No Sade Arango, VERNELL Note: Problem: Chronic Pain Goals: 1. Minimize further functional decline 2. Maximize quality of life 3. Control pain Strategies: - Activity/exercise program recommendation - Conservative stepwise pain medicine strategy with multi-disciplinary approach - Recommend healthy lifestyle strategies and compensatory methods as needed Medical Devices Implanted Type Area Protection Manager Device Identifier Shelf Expiration Date Model / Serial / Lot Screw Screw N/A: Spine Lumbar Procedures Procedure Name Priority Date/Time Associated Diagnosis Comments MRI LUMBAR SPINE WO CONTRAST Schedule Routine, Read Routine (OP Routine) 09/03/2024 4:34 PM CDT Lumbar post-laminectomy syndrome Lumbar radiculopathy PSA SCREEN Routine 03/21/2020 6:23 AM CLINIC PHYSICIAN COLONOSCOPY 06/23/2016 12:00 AM CLINIC PHYSICIAN from Last 3 Months or Most Recently Relevant to Health Maintenance Results * MRI Lumbar Spine WO Contrast (09/03/2024 4:34 PM CDT) Anatomical Region Laterality Modality Spine N/A Magnetic Resonan ce 09/04/2024 9:59 AM CDT Impressions 09/04/2024 11:48 AM CDT 1. Postsurgical changes left laminectomy at L4 as well as posterior instrumented fusion and discectomy L4-L5 with good bony fusion. 2. Exaggerated lordosis centered at the L3-L4 level with degenerative disc disease as detailed above. Up to severe neural foraminal narrowing at the L3-L4 level. No high-grade spinal canal stenosis. Dictated by: Tim Beck M.D. The radiology attending physician has personally reviewed this study, and had reviewed and/or edited this written report and agrees with it. Electronically signed by: Yosef Garcia M.D. Narrative 09/04/2024 11:48 AM CDT EXAMINATION: Magnetic resonance imaging (MRI) of the lumbar spine without contrast HISTORY: 63 years-old Male with Lumbar radiculopathy, symptoms persist with > 6 wks treatment lumbar radiculopathy; post lumbar best sx. TECHNIQUE: Multiplanar multi-weighted MRI of the lumbar spine was performed without intravenous contrast using the standard protocol. COMPARISON: Lumbar spine radiographs 04/11/2024. FINDINGS: Postsurgical changes of prior left laminectomy and posterior instrumented fusion as well as discectomy with intervertebral body spacer involving the L4-L5 level. Exaggerated lordosis centered at the L3-L4 level. There appears to be bony fusion across the L4-L5 disc spacer. No significant listhesis. No focal marrow edema. No suspicious marrow signal. There are no compression fractures. The conus medullaris terminates at the level of L1. The distal spinal cord signal intensity is normal. Desiccative disc changes involving the upper lumbar spine with intervertebral disc height loss, most pronounced at L3-L4. Mild posterior annular fissuring involving the L3-L4 disc. No acute soft tissue findings in the abdomen or pelvis. Paraspinal muscular atrophy. Aorta is normal in caliber. L1-L2: The disc is normal in configuration. There is mild bilateral facet arthropathy. There is mild bilateral neuroforaminal stenosis. There is no spinal canal stenosis. L2-L3: Mild circumferential disc bulge. There is moderate bilateral facet arthropathy. There is mild bilateral neuroforaminal stenosis. There is mild spinal canal stenosis. L3-L4: Intervertebral disc height loss with circumferential disc bulge and superimposed right paracentral protrusion with partial effacement of the right lateral recess. There is severe bilateral facet arthropathy. There is severe bilateral neuroforaminal stenosis. There is mild spinal canal stenosis. L4-L5: Prior discectomy and fusion There is residual mild bilateral facet arthropathy. There is no neuroforaminal stenosis. There is no spinal canal stenosis. L5-S1: The disc is normal in configuration. There is no facet arthropathy. There is no neuroforaminal stenosis. There is no spinal canal stenosis. Procedure Note Yosef Garcia MD - 09/04/2024 EXAMINATION: Magnetic resonance imaging (MRI) of the lumbar spine without contrast HISTORY: 63 years-old Male with Lumbar radiculopathy, symptoms persist with > 6 wks treatment lumbar radiculopathy; post lumbar best sx. TECHNIQUE: Multiplanar multi-weighted MRI of the lumbar spine was performed without intravenous contrast using the standard protocol. COMPARISON: Lumbar spine radiographs 04/11/2024. FINDINGS: Postsurgical changes of prior left laminectomy and posterior instrumented fusion as well as discectomy with intervertebral body spacer involving the L4-L5 level. Exaggerated lordosis centered at the L3-L4 level. There appears to be bony fusion across the L4-L5 disc spacer. No significant listhesis. No focal marrow edema. No suspicious marrow signal. There are no compression fractures. The conus medullaris terminates at the level of L1. The distal spinal cord signal intensity is normal. Desiccative disc changes involving the upper lumbar spine with intervertebral disc height loss, most pronounced at L3-L4. Mild posterior annular fissuring involving the L3-L4 disc. No acute soft tissue findings in the abdomen or pelvis. Paraspinal muscular atrophy. Aorta is normal in caliber. L1-L2: The disc is normal in configuration. There is mild bilateral facet arthropathy. There is mild bilateral neuroforaminal stenosis. There is no spinal canal stenosis. L2-L3: Mild circumferential disc bulge. There is moderate bilateral facet arthropathy. There is mild bilateral neuroforaminal stenosis. There is mild spinal canal stenosis. L3-L4: Intervertebral disc height loss with circumferential disc bulge and superimposed right paracentral protrusion with partial effacement of the right lateral recess. There is severe bilateral facet arthropathy. There is severe bilateral neuroforaminal stenosis. There is mild spinal canal stenosis. L4-L5: Prior discectomy and fusion There is residual mild bilateral facet arthropathy. There is no neuroforaminal stenosis. There is no spinal canal stenosis. L5-S1: The disc is normal in configuration. There is no facet arthropathy. There is no neuroforaminal stenosis. There is no spinal canal stenosis. IMPRESSION: 1. Postsurgical changes left laminectomy at L4 as well as posterior instrumented fusion and discectomy L4-L5 with good bony fusion. 2. Exaggerated lordosis centered at the L3-L4 level with degenerative disc disease as detailed above. Up to severe neural foraminal narrowing at the L3-L4 level. No high-grade spinal canal stenosis. Dictated by: Tim Beck M.D. The radiology attending physician has personally reviewed this study, and had reviewed and/or edited this written report and agrees with it. Electronically signed by: Yosef Garcia M.D. Nathaniel Palacios MD [facility] [place] PROCEDURES Final Resu lt * PSA screen (03/21/2020 6:23 AM CLINIC PHYSICIAN) PSA-Total 0.69 <=5.40 ng/mL [facility]USH SORTO (ARLINE) Comment: Interpretive Data AGE SEX REFERENCE INTERVAL 0 minutes-150 years Female None 0 minutes-49 years Male None 50-59 years Male 0-3.90 60-69 years Male 0-5.40 70-79 years Male 0-6.20 80-150 years Male 0-6.20 Current interpretive data last revised 2018. Testing performed by: [facility], [address] [place] [address] [place]., [address] Blood specimen (specimen) 03/21/2020 6:23 AM CLINIC PHYSICIAN 03/21/2020 12:25 PM CLINIC PHYSICIAN us Ta Mares MD LAB BLOOD ORDERABLES Narcisa reardon Result [facility] Department [place] [address] * COLONOSCOPY (06/23/2016 12:00 AM CLINIC PHYSICIAN) Anatomical Region Laterality Modality Other Narrative 06/23/2016 12:00 AM CLINIC PHYSICIAN Ordered by an unspecified provider. Procedure Note Provider, MD Juan R - 06/23/2016 12:00 AM CST PROCEDURE REPORT Patient: STEPHEN MACIEL Service Date: 06/23/2016 Account: [id number] Room No: : 1960 Patient Type: [facility] Attend.: Damian Purcell M.D. Admit Date: 06/23/2016 Dict.: Damian Purcell M.D. Disch. Date: 06/23/2016 SURGEON Damian Purcell MD PROCEDURE PERFORMED Diagnostic screening colonoscopy. INDICATION Family history of colon cancer, personal history of colon polyps. PRIMARY CARE PHYSICIAN Ta Mares MD BRIEF HISTORY AND PHYSICAL The patient is a 55-year-old white male. He has history of polyps. His mother had history of colon cancer. Last colonoscopy was 5 years ago. Patient presented for screening colonoscopy. PROCEDURE Sedation was provided by anesthesia service. The procedure ofcolonoscopy including indications and possible complications of bleeding, infection, perforation requiring surgery were discussed with the patient. Consentwas obtained. Rectal exam prior to colonoscopy was unremarkable. The scope introduced to the rectum, advanced to the cecum which was identified bythe ileocecal valve and appendiceal orifice. The quality of the colon preparation was very good. The cecum was unremarkable. The patient had diffuse moderatediverticulosis in the entire colon. No polyps and no mass lesions noted. The rectumwas unremarkable. Retroflexion showed medium size internal hemorrhoids and enlarged anal papillae. IMPRESSION 1. Diverticulosis of the colon. 2. No polyps. 3. Moderate size internal hemorrhoids and enlarged anal papillae withbenign appearance. RECOMMENDATIONS Repeat colonoscopy for screening in 5 years. Electronically Authenticated by: Damian Purcell MD On 06/30/2016 12:27 PM CLINIC PHYSICIAN Damian Purcell M.D. HILDA/reina TD: 06/23/2016 09:47 us Historical Provider ENDOSCOPY PROCEDURES Narcisa l Result from Last 3 Months or Most Recently Relevant to Health Maintenance Insurance [facility] H[facility]/PPO Address: [facility] [id number] [place] [address] [facility] MEDICARE ADVANTAGE [facility] UHC MEDICARE ADVANTAGE [facility] MDCR HMO REF [facility] Advance Directives For more information, please contact: [phone] * Full Code (Latest Code Status on File) Date Activated Date Inactivated Comments 05/17/2023 4:41 PM 05/20/2023 7:52 PM * Full Code Date Activated Date Inactivated Comments 02/17/2022 4:54 PM 02/17/2022 11:16 PM Care Teams Neck Pinner Relationship Specialty Start Date End Date Ta Mares MD [address] [address] PCP - General 04/06/17 Chaz Mobley MD [address] [place] [address] [place] [address] Consulting Physician Pulmonary Disease 05/20/23
--- OUTSIDE RECORDS SUMMARY | 2024-09-17 10:37 | XMS_ITS | Clinical Summary ---
Author Organization [facility] Address [address] [place] [address] Phone Care Team Providers Care Crown Wheel Assembler Name Role Phone Ta Mares MD Primary Care Provider [phone] Allergies No known active allergies Medications albuterol sulfate HFA 90 mcg/actuation aerosol inhaler Take 1 Puff by inhalation every 6 hours as needed for Shortness of Breath. 2 Active aspirin (DAMASO CHEWABLE) 81 mg Tablet, Chewable Take 81 mg by mouth daily. Active atorvastatin (LIPITOR) 20 mg tablet Take 20 mg by mouth daily. Active DULoxetine (CYMBALTA) 60 mg Capsule, Delayed Release(E.C.) Take 60 mg by mouth 2 times daily. 2 Active irbesartan (AVAPRO) 150 mg tablet Take 150 mg by mouth daily at bedtime. Active metFORMIN (GLUCOPHAGE XR) 500 mg Extended Release 24 hour tablet Take 1 Tablet by mouth daily. 4 Active methocarbamoL (ROBAXIN) 500 mg tablet Take 500 mg by mouth 2 times daily. 2 Active omeprazole (PriLOSEC) 20 mg Tablet, Delayed Release (E.C.) Take 20 mg by mouth daily before breakfast. Active tamsulosin (FLOMAX) 0.4 mg capsule Take 0.4 mg by mouth 2 times daily. Active zolpidem (AMBIEN) 10 mg tablet Take 10 mg by mouth nightly as needed for Insomnia. Active naloxone (NARCAN) 4 mg/spray [place], Non-Aerosol EMERGENCY USE ONLY: Administer 1 spray (4 mg) in one nostril one time. May repeat in alternating nostrils every 2-3 min until responsive or EMS arrives. 2 Each 3 Active diazePAM (VALIUM) 10 mg tablet Take 10 mg by mouth every 8 hours as needed for Anxiety. Active loratadine-pse udoephedrine (CLARITIN-D) 5-120 mg Extended Release 12 hour tablet Take 1 Tablet by mouth 2 times daily. Active fluticasone propionate (FLONASE) 50 mcg/spray [place], Suspension nasal inhaler Administer 2 Sprays in each nostril daily. Active acetaminophen (TYLENOL) 325 mg tablet Take 2 Tablets (650 mg) by mouth every 6 hours. Active docusate sodium (COLACE) 100 mg capsule Take 1 Capsule (100 mg) by mouth 2 times daily. Active Lidocaine 4 % Adhesive Patch, Medicated Apply to left chest. Apply only once for up to 12 hours within a 24 hour period. Patches may be cut into smaller sizes with scissors prior to the removal of the release liner. Clothing may be worn over the area of application. For more information use the [employer] ADMINISTRATION link. Active polyethylene glycol (MIRALAX) 17 gram Powder in Packet Take 1 Packet (17 Grams) by mouth 2 times daily. Active oxyCODONE (ROXICODONE) 10 mg tabletIndicati ons:Closed fracture of multiple ribs of left side, initial encounter Take 1 Tablet (10 mg) by mouth every 6 hours as needed for severe pain. Max Daily Amount: 40 mg 20 Tablet 03/24/2024 4:35 PM QUALITY SYSTEMS TECHNICIAN Active Active Problems Problem Noted Date Diagnosed Date Anticoagulated 03/21/2024 [address] stairs 03/20/2024 Closed fracture of rib of left side 03/20/2024 Right arm weakness 03/13/2024 Hypothyroidism 03/13/2024 Dysarthria 03/13/2024 Lumbar radiculopathy 12/23/2023 Paroxysmal A-fib 05/20/2023 PAGE (obstructive sleep apnea) 05/18/2023 Encounters Date Type Department Care Team Description 09/04/2024 External Device Data ST[facility] ABSTRACTION Provider, Abstract 07/31/2024 External Device Data [facility] ABSTRACTION Provider, Abstract 07/24/2024 External Device Data [facility] ABSTRACTION Provider, Abstract 07/04/2024 External Device Data [facility] ABSTRACTION Provider, Abstract from Last 3 Months Social History Tobacco Use Types Packs/Day Years Used Date Smoking Tobacco: Never Smokeless Tobacco: Never Tobacco Cessation:Counseling Given: Not Answered Alcohol Use Standard Drinks/Week Comments Not Currently 0 (1 standard drink = 0.6 oz pur e alcohol) Feeling Safe Answer Date Recorded Are you in a relationship wi th someone who hurts you emotionally and/or physically? No 03/20/2024 Food Insecurity Answer Date Recorded Patient needs follow up regardin 09/04/2024 Transportation Needs Answer Date Record ed Patient needs follow up regardin 09/04/2024 Housing Stability Answer Date Recorded Social/Environmental Concerns No concerns Utility Needs Answer Date Recorded Patient needs follow up regardin 09/04/2024 Sex and Gender Information Value Date Recorded Sex Assigned at Not on file Legal Sex Male 1:21 PM QUALITY SYSTEMS TECHNICIAN Gender Identity Not on file Sexual Orientation Not on file Last Filed Vital Signs Vital Sign Reading Time Taken Comments Blood Pressure 135/66 03/24/2024 11:26 AM QUALITY SYSTEMS TECHNICIAN Pulse 86 03/24/2024 3:29 PM QUALITY SYSTEMS TECHNICIAN Temperature 36.3 C (97.4 F) 03/24/2024 11:26 AM QUALITY SYSTEMS TECHNICIAN Respiratory Rate 20 03/24/2024 3:29 PM QUALITY SYSTEMS TECHNICIAN Oxygen Saturation 95% 03/24/2024 3:29 PM QUALITY SYSTEMS TECHNICIAN Inhaled Oxygen Concentration - - Weight 127 kg (280 lb) 03/22/2024 10:11 AM QUALITY SYSTEMS TECHNICIAN Height 177.8 cm (5' 10 ) 03/22/2024 10:11 AM QUALITY SYSTEMS TECHNICIAN Body Mass Index 40.18 03/22/2024 10:11 AM QUALITY SYSTEMS TECHNICIAN Plan of Treatment Health Maintenance Due Date Last Done Comments DTAP/TDAP/TD VACCINES (1 - Tdap) 09/27/1978 FIT-DNA Q 3 years 09/27/2004 FIT/FOBT Q 1 year 09/27/2004 Flex Sig/CT Colonography Q 5 years 09/27/2004 ZOSTER VACCINE (1 of 2) 09/27/2009 RSV VACCINE (60+ or ) (1 - Risk 60-74 years 1-dose series) 2019 INFLUENZA VACCINE (#1) 2023 4, 02/12/2020, 03/05/2015, Additional history exists COLORECTAL SCREENING 06/23/2026 06/23/2016, 06/23/19 17 Colorectal Cancer Screening 06/23/2026 Pre-Diabetes and Diabetes Screening 03/12/2027 03/12/2024 Procedures Procedure Name Priority Date/Time Associated Diagnosis Comments HEMOGLOBIN A1C Stat 03/12/2024 2:41 PM QUALITY SYSTEMS TECHNICIAN from Last 3 Months or Most Recently Relevant to Health Maintenance Results * HEMOGLOBIN A1C (03/12/2024 2:41 PM QUALITY SYSTEMS TECHNICIAN) HEMOGLOBIN A1C 5.6 <5.7 % 03/12/2024 4:47 PM QUALITY SYSTEMS TECHNICIAN [facility] EST. AVG GLUCOSE, A1C 114 mg/dL 03/12/2024 4:47 PM QUALITY SYSTEMS TECHNICIAN [facility] Blood Venipuncture / Unknown 03/12/2024 2:41 PM QUALITY SYSTEMS TECHNICIAN 03/12/2024 2:58 PM QUALITY SYSTEMS TECHNICIAN Narrative [facility] - 03/12/2024 4:47 PM QUALITY SYSTEMS TECHNICIAN HGB A1C INTERPRETATION NORMAL: <5.7% PRE-DIABETES: 5.7 - 6.4% DIABETES: 6.5% OR GREATER Matthew Fuller MD CHEMISTRY ORDERABLES Final Resu lt [facility] [employer] [facility] [id number] [address] [facility] [address] [place] [id number] from Last 3 Months or Most Recently Relevant to Health Maintenance Insurance AETNA CHOICE POS II [facility] [id number] RX [facility] [employer] RX Member Subscriber Plan / Payer (Ef fective 2024-Present) Name:Anshul Macielony Relation to Subscriber:Not on file Name:Stephen Maciel Subscriber ID:Not on file Date of :1960 Payer ID:Not on file Group ID:[id number] Type:RX Medicare Part D Address: [address] [facility] [employer] Commercial Advance Directives For more information, please contact: [phone] * Full Code (Latest Code Status on File) Date Activated Date Inactivated Comments 03/21/2024 6:25 AM 03/24/2024 7:11 PM * Full Code Date Activated Date Inactivated Comments 03/13/2024 2:56 AM 03/13/2024 4:13 PM Care Teams Crown Wheel Assembler Relationship Specialty Start Date End Date Ta Mares MD [address] [place] [address] PCP - General Family Practice 03/12/24
--- OUTSIDE RECORDS SUMMARY | 2024-09-17 10:37 | XMS_ITS | Encounter Summary ---
Author Organization [facility] Address [address] [place] [address] Care Team Providers Care Client Solutions Director Name Role Phone Ta Mares MD Primary Care Provider [phone] Chaz Mobley MD Unavailable Reason for Visit * Reason Onset Date Comments PMC Preprocedure 09/17/2024 Anticoagulation 09/17/2024 Encounter Details Date Type Department Care Team (Late st Contact Info) Description 09/17/2024 Telephone [facility] [facility] [address] 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 Author CCM Chronic Pain Care Plan Chronic Care Management Worsening( 1:06 PM CDT) Sade Trujillo, RN Note: Problem: Chronic Pain Goals: 1. Minimize further functional decline 2. Maximize quality of life 3. Control pain Strategies: - Activity/exercise program recommendation - Conservative stepwise pain medicine strategy with multi-disciplinary approach - Recommend healthy lifestyle strategies and compensatory methods as needed documented as of this encounter Visit Diagnoses Not on filedocumented in this encounter Care Teams Client Solutions Director Relationship Specialty Start Date End Date Ta Mares MD [address] [address] PCP - General 04/06/17 Chaz Mobley MD [address] [place] [address] DR KAUR [address] [place] [address] Consulting Physician Pulmonary Disease 05/20/23 documented as of this encounter
--- OUTSIDE RECORDS SUMMARY | 2024-09-17 10:37 | XMS_ITS | Clinical Summary ---
Author Organization [facility] Address [address] [place] [address] Care Team Providers Care Light Rail Transit Operator Name Role Phone Ta Mares MD Primary Care Provider [phone] Chaz Mobley MD Unavailable Allergies No known active allergies Medications atorvastatin (LIPITOR) 20 mg tablet Take 1 tablet (20 mg total) by mouth daily 021 Active loratadine (CLARITIN) 10 mg tablet TAKE [...] by mouth 2 (two) times a day 021 Active albuterol HFA (PROVENTIL HFA,VENTOLIN HFA,PROAIR HFA) 90 mcg/actuation inhaler INHALE 2 PUFFS BY MOUTH EVERY 4 HOURS NEEDED FOR SHORTNESS OF BREATH OR WHEEZING 022 Active fluticasone propionate (FLONASE) 50 mcg/actuation nasal spray Administer into each nostril daily 022 Active nitroglycerin (NITROSTAT) 0.4 mg SL tabletIndicatio [...] (six) hours Active OneTouch Verio Flex meter misc daily Active diazePAM (VALIUM) 10 mg tablet [...] Active OneTouch Delica Plus Lancet 33 gauge misc daily Active Synthroid 125 mcg tablet Take [...] of application. For more information use the [employer] ADMINISTRATION link. Active oxyCODONE (ROXICODONE) 10 mg tablet Take 1 tablet (10 mg total) by mouth every 4 (four) hours as needed for pain Active diltiazem (TIAZAC) 120 mg 24 hr capsule Take 1 capsule (120 mg total) by mouth daily Active Eliquis 5 mg tablet TAKE 1 TABLET EVERY 12 HOURS 180 tablet 3 Active apixaban (ELIQUIS) 5 mg tabletIndicatio ns:atrial [...] (02/04/2022): Added automatically from request for surgery [id number] Deviated nasal septum 03/17/2021 Assessment & Plan (04/21/2021 4:28 PM BORING MACHINE OPERATOR PRODUCTION): Avoid nose blowing for one more week Continue nasal saline as often as possible Finish Augmentin Assessment & Plan (03/17/2021 12:19 PM BORING MACHINE OPERATOR PRODUCTION): Septoplasty and Inferior Turbinate Reduction bilaterally Risks [...] turbinates Assessment & Plan (04/21/2021 4:28 PM BORING MACHINE OPERATOR PRODUCTION): Avoid nose blowing for one more week Continue nasal saline as often as possible Finish Augmentin Assessment & Plan (03/17/2021 12:19 PM BORING MACHINE OPERATOR PRODUCTION): Septoplasty and Inferior Turbinate Reduction bilaterally Risks [...] (02/04/2022): Added automatically from request for surgery [id number] SOB (shortness of breath) 02/04/2022 Overview (02/04/2022): Added automatically from request for surgery [id number] Encounters Date Type Department Care Team Description 09/17/2024 Telephone [facility] [address] [facility] [address] [place] [address] Nathaniel Palacios MD PMC Preprocedure; Anticoagulation 09/07/2024 Documentation [facility] [address] [facility] [address] [place] [address] Nathaniel Palacios MD Test Results 09/07/2024 Telephone [facility] [address] [place] [address] Nathaniel Palacios MD spk w/nurse 09/03/2024 3:36 PM CDT - 09/03/2024 11:59 PM CDT Hospital Encounter [facility] ([facility]) [address] [place] [address] Lumbar post-laminectomy syndrome; Lumbar radiculopathy Discharge Disposition: Discharge to home or self care 08/06/2024 1:00 PM CDT - 08/06/2024 11:59 PM CDT Hospital Encounter [facility] [address] [place] [address] Nathaniel Palacios MD Lumbar post-laminectomy syndrome (Primary Dx); Lumbar radiculopathy; Spinal stenosis of lumbar region with neurogenic claudication Discharge Disposition: Discharge to home or self care 08/01/2024 Telephone [facility] [address] [place] [address] Nathaniel Palacios MD spk w/nurse from Last 3 Months Immunizations Immunization Administration Dates Next Due Influenza, Quadrivalent, Rec ombinant, Egg Free, Preservative Free, Intramuscular 02/12/2020 Influenza, Quadrivalent, Spl it, Preservative Free, Intramuscular 05/20/2023 Influenza, Trivalent, IM (MDV) 03/05/2015,2013 Influenza, Unspecified 02/10/2022 Surgical History Surgery Date Site/Laterality Comments SHOULDER ARTHROSCOPY Bilateral Arthroscopy shoulder BACK SURGERY Back surgery APPENDECTOMY SPINE SURGERY Medical History Medical History Date Comments Type 2 diabetes mellitus (HCC) Pulmonary hypertension (HCC) Fatty liver Hyperlipidemia Hypertension Neck pain Back pain PAGE (obstructive sleep apnea) 05/18/2023 Atrial fibrillation (HCC) CHF (congestive heart failure) (HCC) Thyroid activity decreased Fall GERD (gastroesophageal reflux disease) Heart disease Migraines Family History Medical History Relation Name Comments COPD Brother 1 Edward Cancer Brother 1 Edward Obesity Brother 2 Edward brother Cancer Brother 3 [place] Obesity Brother 3 [place] Cancer Father Edward sr Depression Maternal Grandmother Deborah Cancer Mother Loretta Heart attack Mother Loretta Heart disease Mother Loretta Heart disease Other 1 Family history of Heart disease; Hypertension Other 2 Family history of Hypertension; Obesity Sister Shakira Stroke Sister Compton Relation Name Status Comments Brother 1 Edward Alive Brother 2 Edward brother Alive Brother 3 [place] Alive Father Edward sr Alive Maternal Grandmother Deborah Alive Mother Loretta Alive Other 1 Other 2 Sister Compton Alive Social History Tobacco Use Types Packs/Day Years [...] on file Legal Sex Male 12:30 AM BORING MACHINE OPERATOR PRODUCTION Gender Identity Not on file Sexual Orientation Not on file Obstetrics History Last Filed Vital Signs Vital Sign Reading [...] 09/03/2024 3:42 PM CDT Plan of Treatment Health Maintenance Due Date Last Done Comments Depression Screening 1960 Hepatitis C Screening 1960 DTaP/Tdap/Td Vaccine (1 - Tdap) 09/27/1970 Hepatitis B Screening 09/27/1977 Regular Well Visit/Exam 18-64 09/27/1977 Pneumococcal vaccine <65 (1 of 2 - PCV) 09/27/1978 Zoster Vaccine (1 of 2) 09/27/2009 Prostate Cancer Screening-PSA 03/21/2022, 02/28/2019, 04/05/2018, Additional history exists Influenza Vaccine (Season Ended) 2024 05/20/2023, 02/10/2022, 02/12/2020, Additional history exists Colon Cancer Screening-Colonoscopy 06/23/2026 06/23/2016, 06/23/2016, 05/20/2010 Colon Cancer Screening-CT Colonography Discontinued 06/23/2016, 06/23/2016, 05/20/2010 Colon Cancer Screening-DNA Stool Discontinued 06/23/2016, 06/23/2016, 05/20/2010 Colon Cancer Screening-FIT Discontinued 06/23, 06/23/2016, 05/20/2010 Colon Cancer Screening-Sigmoidoscopy Discontinued 06/23/2016, 06/23/2016, 05/20/2010 Goals Goal Patient Goal Type Associated Problems [...] as needed Medical Devices Implanted Type Area Assembler Garment Form Device Identifier Shelf Expiration Date Model / Serial / Lot Screw Screw N/A: Spine Lumbar Procedures Procedure Name Priority Date/Time Associated Diagnosis Comments MRI LUMBAR SPINE WO CONTRAST Schedule Routine, Read Routine (OP Routine) 09/03/2024 4:34 PM CDT Lumbar post-laminectomy syndrome Lumbar radiculopathy PSA SCREEN Routine 03/21/2020 6:23 AM BORING MACHINE OPERATOR PRODUCTION COLONOSCOPY 06/23/2016 12:00 AM BORING MACHINE OPERATOR PRODUCTION from Last 3 Months or Most Recently [...] by: Yosef Garcia M.D. Nathaniel Palacios MD IM MRI PROCEDURES Final Resu lt * PSA screen (03/21/2020 6:23 AM BORING MACHINE OPERATOR PRODUCTION) PSA-Total 0.69 <=5.40 ng/mL AAYUSH SORTO (ARLINE) Comment: Interpretive Data AGE SEX REFERENCE INTERVAL 0 minutes-150 years Female None 0 minutes-49 years Male None 50-59 years Male 0-3.90 60-69 years Male 0-5.40 70-79 years Male 0-6.20 80-150 years Male 0-6.20 Current interpretive data last revised 2018. Testing performed by: [facility], [address] [place] [address], [place] [address] Blood specimen (specimen) 03/21/2020 6:23 AM BORING MACHINE OPERATOR PRODUCTION 03/21/2020 12:25 PM BORING MACHINE OPERATOR PRODUCTION us Ta Mares MD LAB BLOOD ORDERABLES Narcisa reardon Result AAYUSH SORTO CANA) 1 [facility] Department [place] [address] * COLONOSCOPY (06/23/2016 12:00 AM BORING MACHINE OPERATOR PRODUCTION) Anatomical Region Laterality Modality Other Narrative 06/23/2016 12:00 AM BORING MACHINE OPERATOR PRODUCTION Ordered by an unspecified provider. Procedure Note ProviderJuan R MD - 06/23/2016 12:00 AM CST PROCEDURE REPORT Patient: STEPHEN MACIEL Service Date: 06/23/2016 Account: [id number] Room No: : 1960 Patient Type: SDS Attend.: Damian Purcell M.D. Admit Date: 06/23/2016 [...] Damian Purcell MD On 06/30/2016 12:27 PM BORING MACHINE OPERATOR PRODUCTION Damian Purcell M.D. HILDA/reina TD: 06/23/2016 09:47 us Historical Provider ENDOSCOPY PROCEDURES Narcisa l Result from Last 3 Months or Most Recently Relevant to Health Maintenance Insurance [facility] MEDICARE ADVANTAGE [facility] UHC MEDICARE [place] [address] [place], [place] [address]R HMO REF [facility] Advance Directives For more information, please contact: [phone] * Full Code (Latest Code Status on File) Date Activated Date Inactivated Comments 05/17/2023 4:41 PM 05/20/2023 7:52 PM * Full Code Date Activated Date Inactivated Comments 02/17/2022 4:54 PM 02/17/2022 11:16 PM Care Teams Light Rail Transit Operator Relationship Specialty Start Date End Date Ta Mares MD [address] [address] PCP - General 04/06/17 Chaz Mobley MD [address] [place] [address] DR KAUR [address] [place] [address] Consulting Physician Pulmonary Disease 05/20/23
--- OUTSIDE RECORDS SUMMARY | 2024-09-17 10:37 | XMS_ITS | Encounter Summary ---
Author Organization [facility] Address [address] [place] [address] Phone Care Team Providers Care Tester Semiconductor Packages Name Role Phone Ta Mares MD Primary Care Provider [phone] Chaz Mobley MD Unavailable Encounter Details Date Type Department Care Team (Latest Contact Info) Description 07/24/2021 Orders Only BILL IM CARDIOLOGY Scanning, Provider [...] on file Legal Sex Male 12:30 AM AGRICULTURE TEACHER Gender Identity Not on file Sexual Orientation Not on file documented as of this encounter Plan of Treatment Not on file documented as of this encounter Procedures Procedure Name Priority Date/Time Associated Diagnosis Comments SCAN - LABS 07/24/2021 documented in this encounter Results * SCAN - LABS (07/24/2021) us Provider Scanning Final Result documented in this encounter Visit Diagnoses Not on filedocumented in this encounter Additional Health Concerns Infection Onset Date Last Indicated Resolved Time COVID: Suspected 05/17/2023 05/17/2023 05/17/2023 3:53 PM AGRICULTURE TEACHER documented as of this encounter Care Teams Tester [employer]iconductor Packages Relationship Specialty Start Date End Date Ta Mares MD [address] [address] PCP - General 04/06/17 Chaz Mobley MD [address] [place] [address] [address] Consulting Physician Pulmonary Disease 05/20/23 documented as of this encounter
--- OUTSIDE RECORDS SUMMARY | 2024-09-17 10:37 | XMS_ITS | Clinical Summary ---
Author Organization [facility] Address [address] [facility] [address] [place] [address] Phone Care Team Providers Care Coal Sampler Name Role Phone Ta Mares MD Primary Care Provider Allergies No known active allergies Medications polyethylene glycol (MIRALAX) Powder Use entire 255g bottle with 64oz of clear liquid as directed for colonoscopy prep. 255 g 0 6 Active amiodarone (CORDARONE) 200 MG Tablet Take 200 mg by mouth daily. Active apixaban (Eliquis) 5 MG Tablet Take 5 mg by mouth 2 times daily. Active zolpidem (Ambien) 10 MG Tablet Take 10 mg by mouth nightly as needed. Active irbesartan (Avapro) 150 MG Tablet Take 150 mg by mouth nightly. Active HYDROcodone-roosevelt taminophen ([place]) 10-325 MG Tablet Take 1 Tablet by mouth 4 times daily as needed. Active semaglutide, 2 MG/DOSE, (Ozempic, 2 MG/DOSE,) 8 MG/3ML Solution Pen-injector 2 mg by Subcutaneous route once a week. Active aspirin EC 81 MG Tablet Delayed Response Take 81 mg by mouth daily. Active DULoxetine (Cymbalta) [address] Particles Take 60 mg by mouth 2 times daily. Active methocarbamol (ROBAXIN) 500 MG Tablet Take 1,000 mg by mouth 2 times daily. Active IPRATROPIUM-ALB UTEROL IN take by inhalation. Active fluticasone (FLONASE) 50 MCG/ACT Suspension 1 [place] by Nasal route daily. Use in each nostril as directed. Active atorvastatin (Lipitor) 20 MG Tablet Take 20 mg by mouth daily. Active loratadine (Claritin) 10 MG Tablet Take 10 mg by mouth daily. Active metFORMIN (GLUCOPHAGE) 500 MG Tablet Take 500 mg by mouth 2 times daily (with meals). Active Omeprazole 20 MG Tablet Delayed Response Take by mouth. Activ e SUMAtriptan (Imitrex) 50 MG Tablet Take 50 mg by mouth once as needed. Use as directed. May repeat dose in 2 hours if headache recurs. Active tamsulosin (FLOMAX) 0.4 MG Capsule Take 0.4 mg by mouth daily. Active Social History Tobacco Use Types Packs/Day Years Used Date Smoking Tobacco: Former Cigarettes Smokeless Tobacco: Never Tobacco Cessation:Counseling Given: Not Answered Alcohol Use Standard Drinks/Week Comments Yes 0 (1 standard drink = 0.6 oz pur e alcohol) on occassion Sex and Gender Information Value Date Recorded Sex Assigned at Not on file Legal Sex Male 7:45 PM CDT Gender Identity Not on file Sexual Orientation Not on file Last Filed Vital Signs Vital Sign Reading Time Taken Comments Blood Pressure 114/74 03/10/2024 11:00 AM TUBE MACHINE OPERATOR Pulse 85 03/10/2024 11:00 AM TUBE MACHINE OPERATOR Temperature 36.6 C (97.8 F) 03/10/2024 9:07 AM TUBE MACHINE OPERATOR Respiratory Rate 21 03/10/2024 11:00 AM TUBE MACHINE OPERATOR Oxygen Saturation 97% 03/10/2024 11:00 AM TUBE MACHINE OPERATOR Inhaled Oxygen Concentration - - Weight 113.4 kg (250 lb) 03/10/2024 9:07 AM TUBE MACHINE OPERATOR Height 177.8 cm (5' 10 ) 03/10/2024 9:07 AM TUBE MACHINE OPERATOR Body Mass Index 35.87 03/10/2024 9:07 AM TUBE MACHINE OPERATOR Plan of Treatment Health Maintenance Due Date Last Done Comments Hepatitis C Virus (HCV) Screening 1960 TdaP Immunization 1960 Colonoscopy 09/27/2004 Colorectal Cancer Screening 09/27/2004 Cologuard 09/27/2009 Immunochemical Fecal Occult Blood 09/27/2009 Pneumococcal Immunization (50+ years) (1 of 1 - PCV) 09/27/2009 PSA Discussion 09/27/2014 Respiratory Syncytial Virus (RSV) Immunization (Adult) (1 - Risk 60-74 years 1-dose series) 2019 SARS-COV-2 Immunization ( season) 2024 Zoster Immunization (2 of 2) 03/28/2024 02/01/2024 Influenza Immunization Completed , 05/20/2023, 02/10/2022, Additional history exists Hepatitis B Immunization Aged Out No longer eligible based on patient's age to complete this topic Meningococcal Immunization (ACWY) Aged Out No longer eligible based on patient's age to complete this topic Rotavirus Immunization Aged Out No lo nger eligible based on patient's age to complete this topic Insurance AETNA SOI MEDICARE C [facility] Care Teams Coal Sampler Relationship Specialty Start Date End Date Ta Mares MD [address] [address] PCP - General Family Medicine 07/25/23
== END 2024-09-17 10:53 | disposition home or self-care (01) ==
PROVIDERS: Emergency Provider Nurse Practitioner; PCP Family Medicine
DX: K11.20 Sialoadenitis, unspecified (principal); Z87.891 Personal history of nicotine dependence; E03.9 Hypothyroidism, unspecified; I48.0 Paroxysmal atrial fibrillation; E11.9 Type 2 diabetes mellitus without complications; Z79.84 Long term (current) use of oral hypoglycemic drugs; Z79.85 Long-term (current) use of injectable non-insulin antidiabetic drugs; M35.00 Sjogren syndrome, unspecified; I25.10 Atherosclerotic heart disease of native coronary artery without angina pectoris; K76.0 Fatty (change of) liver, not elsewhere classified; E66.9 Obesity, unspecified; I27.20 Pulmonary hypertension, unspecified; N40.1 Benign prostatic hyperplasia with lower urinary tract symptoms; I50.9 Heart failure, unspecified; Z79.01 Long term (current) use of anticoagulants
CPT/HCPCS: 99213; G0463

== ENCOUNTER 2024-11-04 16:59 | Emergency (ER) | payer OTHER, MEDICARE, SELFPAY ==
[2024-11-04] VITALS (8 sets, daily range): BP systolic 119–143; BP diastolic 71–92; PULSE 51–115; RESP 20–22; TEMP 36.6; O2SAT 79–92
--- NOTE | ~2024-11-04 | CT_ITS ---
EXAMINATION: CT cervical spine wo con DATE: 11/04/2024 17:27 INDICATION: Fall, posterior head injury/ laceration TECHNIQUE: Computed tomography (CT) of the cervical spine was performed without intravenous contrast. Automated exposure control and iterative reconstruction technique were employed. The dose-length pro duct was 656.45 mGy-cm. COMPARISON: None. FINDINGS: Examination mildly limited by body habitus and mild motion artifact. Vertebral Body Alignment: Cervical straightening. Multilevel trace listheses, presumably on a degener ative basis. Craniocervical and atlantoaxial alignment: Moderate degenerative change. Alignment intact. Osseous structures/fracture: No evidence of a lytic or blastic process in the visualized spine. No e vidence of acute fracture. Cervical soft tissues: The paraspinal soft tissues planes are maintained. Degenerative changes: Multilevel degenerative disc disease and facet arthropathy. Severe left neural foraminal narrowing at C3-4. No severe central canal narrowing. IMPRESSION: No acute fracture or traumatic malalignment in the cervical spine. Reviewed, dictated and finalized at location K.
--- NOTE | ~2024-11-04 | XR_ITS ---
EXAMINATION: XR chest 1V portable Exam Date/Time: 11/04/2024 17:40 CDT HISTORY: hypoxia Comparison: 08/24/2021. RESULT: Lines, tubes, and devices: Soft tissue anchors in the right humeral head. Lungs and pleura: Lordotic positioning and very low lung volumes. Right hemidiaphragm elevation. Str eaky right basilar opacities, likely representing atelectasis. Cardiomediastinal silhouette: Stable. Other: No acute osseous or upper abdominal finding. IMPRESSION: Examination due to body habitus and degree of inspiration. Consider repeat examination at full inspir ation. Streaky subsegmental right basilar atelectasis/consolidation. Reviewed, dictated and finalized at location K. IMPRESSION: Examination due to body habitus and degree of inspiration. Consider repeat exam ination at full inspiration. Streaky subsegmental right basilar atelectasis/con solidation.
--- NOTE | ~2024-11-04 | CT_ITS ---
EXAMINATION: CT brain wo con DATE: 11/04/2024 17:27 INDICATION: Fall, posterior head injury/ laceration . TECHNIQUE: Computed tomography (CT) of the head was performed without intravenous contrast. The mA wa s adjusted according to patient size. Iterative reconstruction technique was employed. The dose-lengt h product was 681.00 mGy-cm. COMPARISON: MRI brain 11/03/2021. FINDINGS: No acute intracranial hemorrhage or extra-axial fluid collection. No hydrocephalus, mass, or herniation. No acute ischemic infarct. Unremarkable dural venous sinus attenuation. No acute osseous abnormality. Left posterior scalp contusions and laceration. The aerated spaces are clear. Mild atrophy and chronic white matter change. Atherosclerotic intracranial calcification. Bilateral l ens replacements. IMPRESSION: No acute intracranial process. Reviewed, dictated and finalized at location K.
--- NOTE | 2024-11-04 17:00 | ED_ITS ---
HPI - Head Injury General Chief complaint: Head Injury Stated complaint: HEAD INJURY, ELIQUIS Time Seen by Provider: 11/04/24 16:59 Source: patient Mode of arrival: wheelchair Limitations: no limitations History of Present Illness HPI Narrative: Patient is a 64-year-old male with a head injury earlier today at home and fell onto the laundry basket. Patient has been drinking alcohol today. He hit the back of his head with a deep long laceration. His came home and found him on the floor but he was AAO x4 and breathing without difficulty. He has a history of hypoxia after he broke his ribs sometime ago and was on oxygen at home but he does not use that anymore and does not check his home oxygen. His O2 sats when he got here was high 70s to mid 80s. No chest pain or shortness of breath at this time. No other complaints. patient is on Eliquis for AFib. MD Complaint: head injury and fall Onset (ago): unknown ( Today) Mechanism of Injury: fall ( ground level) Place: home Loss of Consciousness: unsure Location of injury: occipital Severity: moderate Severity scale (1-10): 2 Quality: dull Radiation: none Other Injuries: none Context: other anticoagulant use ( AFib with Eliquis use) Associated symptoms: denies other symptoms Related Data Home Medications ?Medication ?Instructions ?Recorded ?Confirmed ?Last Taken ?Type irbesartan 150 mg tablet 150 mg PO DAILY 03/20/24 08/21/24 03/20/24 History 0900 furosemide 20 mg tablet mg 09/17/24 Unknown History Allergies Allergy/AdvReac Type Severity Reaction Status Date / Time No Known Allergies Allergy Verified 11/04/24 17:33 Review of Systems Review of Systems: All systems reviewed & are unremarkable except as noted in HPI and below Constitutional: Constitutional: Reports no additional constitutional complaints Eyes: Eyes: Reports no additional eye complaints ENT: Reports system reviewed and no additional complaints, except as documented Cardiovascular: Cardiovascular: Reports no additional cardiovascular complaints Respiratory: Respiratory: Reports no additional respiratory complaints Gastrointestinal: Gastrointestinal: Reports no additional gastrointestinal complaints Genitourinary: Genitourinary: Reports no additional male genitourinary complaints Musculoskeletal: Musculoskeletal: Reports no additional musculoskeletal compl aints Integumentary/Breasts: Skin/Breast: Reports system reviewed and no additional complaints, except as docu Neurologic: Reports system reviewed and no additional complaints, except as documented Psychiatric: Psychiatric: Reports no additional psychiatric complaints Endocrine: Endocrine: Reports no additional endocrine complaints Hematologic/Lymphatic: Hematologic/Lymphatic: Reports no additional hematologic/lymphatic complaints Allergic/Immunologic: Allergic/Immunologic: Reports no additional allergic/immunologic complaints [facility] Past Medical History Medical History Alcohol abuse (~08/21/24) reports patient is drinking 1/5 of liquor daily 08/21/2024. TIA (transient ischemic attack) (~03/2024) possible TIA with right hemiparesis, slurred speech evaluated 03/12/2024. MRI of the brain and CT of the brain unremarkable. 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 Amiodarone discontinued. TSH 4.5 with free T4 1.3 on 05/08/2024. BMI 34.0-34.9,adult Insomnia Acute pain of right knee (07/15/23) x-ray on 07/18/2023 reveals moderate osteoarthritis with large joint effusion. No fracture. Elevated hemidiaphragm Paroxysmal atrial fibrillation (05/17/23) Diastolic dysfunction with acute on chronic heart failure (05/17/23) echocardiogram on 05/18/2022 with diastolic dysfunction with ejection fraction 65-70% and mild aortic stenosis. Hospitalist admission for acute CHF 05/17/2023. Male erectile dysfunction, unspecified Chronic constipation At moderate risk for fall (~2021) Cervical spondylosis with myelopathy Encounter for prostate cancer screening PSA 0.35 on 04/28/2021. PSA 0.34 on 04/28/2022. PSA 0.39 on 05/08/2024. Controlled diabetes mellitus Glucose 102 with hemoglobin A1c 5.8 on 04/28/2022. glucose 101 with hemoglobin A1c 5.4 on 04/28/2023.Glucose 92 with hemoglobin A1c 5.4 and urine microalbumin ratio of 3 on 11/11/2023. Glucose 98, hemoglobin A1c 5.5, microalbumin ratio of 6 with GFR 98 on 05/08/2024. Worsening headaches Arrhythmia (01/27/22) COVID-19 (12/04/21) 2nd episode unvaccinated, tested positive 12/05/2021. Chronic pain of right elbow (~07/2021) X-ray on 11/13/2021 reveals mild osteoarthritis with soft tissue swelling but no effusion. Closed head injury with brief loss of consciousness (~10/06/21) MRI of the brain on 11/03/2021 was unremarkable except for changes of chronic small vessel disease. Ataxia Syncope and collapse BMI 37.0-37.9, adult Sjogrens syndrome (08/18/21) ADRIANNE positive with SS- A > 8.0 and SS -B > 8.0 with possible Sjogren's syndrome Coronary artery calcification seen on CAT scan (08/18/21) calcifications of the coronary arteries noted on CT of the chest 08/18/21 . Normal cardiac catheterization January,. Cholelithiasis gallstones on ultrasound 08/18/2021. Nonalcoholic fatty liver disease Fatty liver on 08/18/2021 ultrasound. Obesity (BMI 30-39.9) COVID-19 long hauler manifesting chronic dyspnea CT of the chest on 08/18/2021 with elevated right hemidiaphragm and mild atelectasis of the right middle lobe with calcified nodule right lung and 5 mm nodule of the lingula with degenerative changes of the thoracic spine and coronary artery calcifications. COVID-19 (05/22/21) symptoms started and positive test on 05/22/2021 Acute bronchitis Elevated liver enzymes (04/28/21) AST 87, ALT 94 on 04/28/2021. AST 83 with ALT 122 on 07/24/2021. GGT 25, AST 31 and ALT 34 on 08/18/2021. AMA less than 20. hepatitis A,B, and C screening negative on 08/18/2021. ADRIANNE positive with Sjogren's antibodies. AST 73 with ALT 93 on 04/28/2022. His AST 45 and ALT 75 on 07/14/2022. GGT elevated at 80 with AST 41 and ALT 71 on 04/28/2023. GGT 39, AST 22, ALT 28 on 11/11/2023. GGT 61, AST 40, ALT 41 on 05/08/2024. BMI 38.0-38.9,adult Refractory obstruction of nasal airway (~01/27/21) BMI 36.0-36.9,adult Obstructive sleep apnea BMI 39.0-39.9,adult Aortic regurgitation Pulmonary hypertension Chest pain Dyspnea on exertion Migraine without aura and without status migrainosus, not intractable BPH with obstruction/lower urinary tract symptoms Chronic depression Vitamin B12 deficiency anemia vitamin B12 level normal at 737 on 04/28/2021. Normal at 1842 on 04/28/2022. Normal at 1126 with hemoglobin 15.0 on 11/11/2023. Level normal at 819 with hemoglobin 15.0 on 05/08/2024. Chronic neck pain CT of cervical spine in the ER 02/28/2022 with multilevel degenerative disc disease and spondylosis worse at C6-C7 and C7-T1. Family history of colon cancer in mother Polyp of colon Abnormal fasting glucose fasting glucose 102 with hemoglobin A1c 6.0 on 04/28/2021 Surgical History Surgical History History of shoulder surgery History of back surgery History of nasal surgery No pertinent past surgical history Family History Family History Mother Patient's mother is in good health Acute myocardial infarction Carcinoma of colon Heart disease Father Family history of lung cancer Sibling Diabetes mellitus Hypertension Cerebrovascular accident Social History Social History Smoking status: Former smoker Alcohol intake: former Substance use: never Substance use type: does not use Current Housing: Decline to Answer Concerned About Future Housing: Decline to Answer Difficulty Paying Gas/Electric Bills: Decline to Answer Difficulty Paying for Meds: Decline to Answer Currently Unemployed: Decline to Answer Education: Decline to Answer Difficulty w/ Childcare or Family Care: Decline to Answer Living arrangements: with family Gender identity (if verbalized by the patient): Male Exam Const: General: healthy appearing and no acute distress Nutritional Appearance: well nourished Orientation/consciousness: patient oriented x3 Limitations: other limitations ( Alcohol intoxication) HENMT: Head: abnormal to inspection ( see skin exam) Ears: external ears normal Face/Nose/Sinus: Normal external nose present Eyes: Conjunctivae: conjunctivae normal Pupils: Equal, round and reactive pupils present EOM: EOMs intact bilaterally Neck: Neck: normal visual inspection Chest: Chest palpation & inspection: normal inspection of the chest Resp: Effort & Inspection: normal respiratory effort and not labored Auscultation: clear to auscultation bilaterally and no crackles Cardio: Rate: regular rate Rhythm: regular rhythm Heart sounds: no murmurs GI: Inspection: non-distended GI Palp: Yes Soft to palpation and No Tenderness to palpation present (GI) Auscultation: normal bowel sounds : General: Yes bladder normal to palpation Back/Spine/Pelvis: Back: no CVA tenderness Skin: General skin exam: normal color Rashes: no rashes Wounds: wound noted Other: 8 cm linear laceration to the subcutaneous tissue the without bleeding at this time Neuro: General: patient oriented x3, moves all extremities, no meningeal signs and no focal motor deficits Cranial nerves: Yes CN's II-XII intact bilaterally and Yes Nystagmus not present Other: NIH is 0, GCS is 15 Extrem: General: normal to inspection Psych: Mental Status: mental status grossly normal Affect: normal affect Attitude: cooperative Course Vital Signs Vital signs: Vital Signs Temperature 36.6 C 11/04/24 17:04 Pulse Rate 115 H 11/04/24 17:04 Respiratory Rate 20 11/04/24 17:04 Blood Pressure 119/75 11/04/24 17:04 Pulse Oximetry 79 L 11/04/24 17:04 Oxygen Delivery Room Air 11/04/24 17:04 Temperature 36.6 C 11/04/24 17:04 Pulse Rate 58 L 11/04/24 18:31 Respiratory Rate 22 H 11/04/24 17:25 Blood Pressure 142/92 H 11/04/24 18:31 Pulse Oximetry 91 11/04/24 18:33 Oxygen Delivery Room Air 11/04/24 18:33 Oxygen Flow Rate 2 11/04/24 18:31 Procedures Other Procedure Procedure 1: Other Procedure: posterior scalp laceration 8 cm repair: Area was cleaned by nursing staff with chlorhexidine, 11 tamela placed in a linear fashion MDM - Head Injury MDM Narrative Medical decision making narrative: patient is a 64-year-old male with a head injury after falling backwards ground level. He fell today. He is alcohol intoxication. His is present. We will get a CT head and neck. He is hypoxic and we will look into that issue as history claims it is a chronic issue but he does not wear oxygen. Further we will check into a tetanus status. Patient was put on oxygen on presentation however it was not needed toward the end of the encounter to keep the saturation in the low 90s which is probably his baseline. He does have home oxygen and it was suggested on the discharge to go back on his home oxygen. Further discussion about chronic hypoxia with his primary doctor at follow-up. Chest x-ray shows atelectasis. Imaging Data Attestation: I personally reviewed and interpreted this imaging study as follows: Radiologist's impression: CT scan of the head is negative for acute process CT scan of the cervical spine is negative for acute process Chest x-ray shows atelectasis as the likely source of opacity in the right lower lobe Discharge Plan Discharge Clinical Impression: Chronic hypoxemic respiratory failure Closed head injury Qualifiers: Encounter type: initial encounter Qualified Code(s): S09.90XA - Unspecified injury of head, initial encounter Alcohol intoxication Qualifiers: Complication of substance-induced condition: uncomplicated Qualified Code(s): F10.920 - Alcohol use, unspecified with intoxication, uncomplicated Laceration of head Qualifiers: Encounter type: initial encounter Location of open wound of head: scalp Foreign body presence: without foreign body Qualified Code(s): S01.01XA - Laceration without foreign body of scalp, initial encounter Patient Disposition: Home Condition: Stable Instructions: Head Injury (ED) Additional Instructions: please follow-up with primary doctor in the next week. Please have the tamela removed in 10 days. Further discussion about low oxygen needs to be reviewed with her primary doctor. Please use your home oxygen as planned. Patient Language: Togolese Prescriptions: No Action irbesartan 150 mg tablet 150 mg PO DAILY furosemide 20 mg tablet amoxicillin-pot clavulanate 875-125 mg tablet 1 tablet PO Q12H 10 Days Qty: 20 0RF sildenafil [Viagra] 100 mg tablet 100 mg PO DAILY PRN (Reason: sexual activity) Qty: 90 1RF Rx Instructions: administer 30 minutes to 4 hours before activity fuchs pay with good Rx discount Ozempic 2 mg/dose (8 mg/3 mL) pen injector 2 mg subcut WEEKLY Qty: 3 11RF (DME) pen needle, diabetic [BD Ultra-Fine Micro Pen Needle] 32 gauge x 1/4 needle See Rx Instructions .Route Qty: 50 2RF Rx Instructions: use once weekly with ozempic omeprazole 20 mg capsule,delayed release(DR/EC) 20 mg PO BID Qty: 180 3RF metformin 500 mg tablet extended release 24 hr 500 mg PO DAILY Qty: 90 3RF atorvastatin 20 mg tablet 20 mg PO DAILY Qty: 90 3RF mometasone 50 mcg/actuation spray,non-aerosol 1 spray intranasal BID Qty: 51 3RF Rx Instructions: administer into each nostril tamsulosin [Flomax] 0.4 mg capsule 0.4 mg PO . B.i.d. Qty: 180 3RF methocarbamol 500 mg tablet 250 mg PO BID PRN (Reason: muscle spasms) Qty: 90 3RF diltiazem HCl 120 mg capsule,extended release 24 hr 120 mg PO DAILY Qty: 100 3RF gabapentin 300 mg capsule 300 mg PO TID Qty: 300 3RF levothyroxine 125 mcg tablet 125 mcg PO DAILY Qty: 100 3RF (DME) lancets [OneTouch Delica Plus Lancet] 33 gauge misc See Rx Instructions .Route Qty: 100 3RF Rx Instructions: use once daily (DME) blood-glucose meter [OneTouch Verio Flex meter] Misc See Rx Instructions .Route Qty: 1 2RF Rx Instructions: use once daily sumatriptan succinate [Imitrex] 50 mg tablet See Rx Instructions PO .COMPLEX Qty: 21 11RF Rx Instructions: take 1 tab at onset of headache; if no relief may repeat 1 tab after at least 2 hrs; max = 4 tabs/24 hr PO diazepam 10 mg tablet 10 mg PO BID PRN (Reason: muscle spasm) Qty: 180 1RF duloxetine 60 mg capsule,delayed release(DR/EC) 60 mg PO BID Qty: 180 3RF Eliquis 5 mg tablet 5 mg PO BID Qty: 30 5RF loratadine 10 mg capsule 10 mg PO BID PRN (Reason: allergy symptoms) Qty: 180 3RF polyethylene glycol 3350 [Miralax] 17 gram/dose powder 17 g PO DAILY Qty: 510 11RF (DME) OneTouch Verio test strips Strip See Rx Instructions .Route Qty: 100 3RF Rx Instructions: use once daily hydrocodone-acetaminophen 10-325 mg tablet 1 tablet PO Q4-6H PRN (Reason: pain) Qty: 180 0RF Follow-up/Referrals: Ta Mares MD [Primary Care Provider] - Time of Disposition: 18:42
--- OUTSIDE RECORDS SUMMARY | 2024-11-04 17:00 | XMS_ITS | Clinical Summary ---
Author Organization [facility] Address [address] [facility] [address] [place] [address] Phone Care Team Providers Care Wool Carder Name Role Phone Ta Mares MD Primary Care Provider [phone] Allergies No known active allergies Medications polyethylene [...] mg by mouth nightly. Active HYDROcodone-roosevelt taminophen ([place]) 10-325 MG Tablet Take 1 Tablet by [...] Active fluticasone (FLONASE) 50 MCG/ACT Suspension 1 [place] by Nasal route daily. Use in each [...] Comments Blood Pressure 114/74 03/10/2024 11:00 AM QUALITY ASSURANCE INSPECTOR Pulse 85 03/10/2024 11:00 AM QUALITY ASSURANCE INSPECTOR Temperature 36.6 C (97.8 F) 03/10/2024 9:07 AM QUALITY ASSURANCE INSPECTOR Respiratory Rate 21 03/10/2024 11:00 AM QUALITY ASSURANCE INSPECTOR Oxygen Saturation 97% 03/10/2024 11:00 AM QUALITY ASSURANCE INSPECTOR Inhaled Oxygen Concentration - - Weight 113.4 kg (250 lb) 03/10/2024 9:07 AM QUALITY ASSURANCE INSPECTOR Height 177.8 cm (5' 10) 03/10/2024 9:07 AM QUALITY ASSURANCE INSPECTOR Body Mass Index 35.87 03/10/2024 9:07 AM QUALITY ASSURANCE INSPECTOR Plan of Treatment Health Maintenance Due Date Last Done Comments Hepatitis C Virus (HCV) Screening 1960 TdaP Immunization 1960 Cologuard 09/27/2004 Colonoscopy 09/27/2004 Colorectal Cancer Screening 09/27/2004 Immunochemical Fecal Occult Blood 09/27/2004 Pneumococcal Immunization (50+ years) (1 of 1 - PCV) 09/27/2009 PSA Discussion 09/27/2014 Respiratory Syncytial Virus (RSV) Immunization (Adult) (1 - Risk 60-74 years 1-dose series) 2019 SARS-COV-2 Immunization ( season) 2024 Zoster Immunization (2 of 2) 03/28/2024 02/01/2024 AAA Screening Ultrasound 09/27/2024 Influenza Immunization Completed , 05/20/2023, 02/10/2022, Additional history exists Hepatitis B Immunization Aged Out No longer eligible based on patient's age to complete this topic Human Papillomavirus (HPV) Immunization Aged Out No longer eligible based on patient's age to complete this topic Meningococcal Immunization (ACWY) Aged Out No longer eligible based on patient's age to complete this topic Rotavirus Immunization Aged Out No lo nger eligible based on patient's age to complete this topic Insurance [employer]ET[employer] SOI MEDICARE C [employer] Care Teams Wool Carder Relationship Specialty Start Date End Date Ta Mares MD [address] [address] PCP - General Family Medicine 07/25/23
--- OUTSIDE RECORDS SUMMARY | 2024-11-04 17:00 | XMS_ITS | Encounter Summary ---
Author Organization [facility] Address [address] [place] [address] Phone Care Team Providers Care Global Head Advertiser Solutions Name Role Phone Ta Mares MD Primary Care Provider [phone] Chaz Mobley MD Unavailable Encounter Details Date [...] on file Legal Sex Male 12:30 AM CHART CALCULATOR Gender Identity Not on file Sexual Orientation [...] COVID: Suspected 05/17/2023 05/17/2023 05/17/2023 3:53 PM CHART CALCULATOR documented as of this encounter Care Teams Global Head Advertiser Solutions Relationship Specialty Start Date End Date Ta Mares MD [address] [address] PCP - General 04/06/17 Chaz Mobley MD [address] [place] [address] [address] [place] [id number] Consulting Physician Pulmonary Disease 05/20/23 documented as of this encounter
--- OUTSIDE RECORDS SUMMARY | 2024-11-04 17:00 | XMS_ITS | Referral Summary ---
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 Name Role Phone Ta Mares MD Primary Care Provider [phone] Chaz Mobley MD Unavailable Encounters Date Type Department Care Team Description 10/25/2024 Documentation [facility] [address] [place] [address] for Advanced Medicine [address] [place] [id number] Nathaniel Palacios MD multidisciplinary case conference 2024 1:28 PM CDT - 2024 11:59 PM CDT Hospital Encounter [facility] [address] [place] [address] for Advanced Medicine [address] [place] [address] Nathaniel Palacios MD Lumbar post-laminectomy syndrome; 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 Discharge Disposition: Discharge to home or self care 09/17/2024 Telephone [facility] [address] [place] [address] for Advanced Medicine [address] [place] [phone] Nathaniel Palacios MD PMC Preprocedure; Anticoagulation 09/07/2024 Documentation [facility] [address] [place] [address] for Advanced Medicine [address] [place] [address] Nathaniel Palacios MD Test Results 09/07/2024 Telephone [facility] [address] [place] [address] for Advanced Medicine [address] [place] [address] Nathaniel Palacios MD spk w/nurse 09/03/2024 3:36 PM CDT - 09/03/2024 11:59 PM CDT Hospital Encounter [facility] [address] [place] [address] Lumbar post-laminectomy syndrome; Lumbar radiculopathy Discharge Disposition: Discharge to home or self care 08/06/2024 1:00 PM CDT - 08/06/2024 11:59 PM CDT Hospital Encounter [facility] [address] [facility] Advanced [facility] [address] [place] [address] Nathaniel Palacios MD Lumbar post-laminectomy syndrome (Primary Dx); Lumbar radiculopathy; Spinal stenosis of lumbar region with neurogenic claudication Discharge Disposition: Discharge to home or self care from Last 3 Months Allergies No known active allergies Medications atorvastatin (LIPITOR) 20 mg tablet Take 1 tablet (20 mg total) by mouth daily 1 Active loratadine (CLARITIN) 10 mg tablet TAKE ONE TABLET BY MOUTH DAILY NEEDED FOR ALLERGY SYMPTOMS 1 Active metFORMIN XR (GLUCOPHAGE XR) 500 mg 24 hr tablet Take 1 tablet (500 mg total) by mouth daily with breakfast 1 Active omeprazole (PriLOSEC) 20 mg capsule Take 1 capsule (20 mg total) by mouth daily 1 Active SUMAtriptan (IMITREX) 50 mg tablet Take 1 tablet (50 mg total) by mouth once as needed 1 Active tamsulosin (FLOMAX) 0.4 mg extended release capsule Take 1 capsule (0.4 mg total) by mouth 2 (two) times a day 1 Active albuterol HFA (PROVENTIL HFA,VENTOLIN HFA,PROAIR HFA) 90 mcg/actuation inhaler INHALE 2 PUFFS BY MOUTH EVERY 4 HOURS NEEDED FOR SHORTNESS OF BREATH OR WHEEZING 2 Active fluticasone propionate (FLONASE) 50 mcg/actuation nasal spray Administer into each nostril daily 2 Active nitroglycerin (NITROSTAT) 0.4 mg SL tabletIndicati ons:acute episode of anginal pain Place 1 tablet (0.4 mg total) under the tongue every 5 (five) minutes as needed for chest pain May repeat dose q 5 min, up to 3 doses total. If chest pain persists after the 3rd dose, call 911. 25 tablet 6 2 Active methocarbamoL (ROBAXIN) 500 mg tablet Take 1 tablet (500 mg total) by mouth 2 (two) times a day 20 tablet 2 Active naloxone (NARCAN) 4 mg/actuation spray,non-aero [place] [address] (CYMBALTA) 60 mg capsule Take 1 capsule (60 mg total) by mouth 2 (two) times a day 2 Active aspirin 81 mg chewable tablet Take 1 tablet (81 mg total) by mouth daily Active HYDROcodone-ac etaminophen (NORCO) 10-325 mg per tablet Take 1 tablet by mouth 3 Active Ozempic 2 mg/dose (8 mg/3 mL) pen injector injection 2 MG (0.75 ML) SUBCUTANEOUSLY WEEKLY 3 Active irbesartan (AVAPRO) 150 mg tablet Take 0.5 tablets (75 mg total) by mouth daily 3 Active zolpidem (AMBIEN) 10 mg tablet Take 1 tablet (10 mg total) by mouth nightly as needed for sleep Active OneTouch Verio test strips strip 4 Active polyethylene glycol (MIRALAX) 17 gram/dose bulk powder DISSOLVE 17 GRAMS IN LIQUID AND TAKE BY MOUTH DAILY 3 Active mometasone (NASONEX) 50 mcg/actuation nasal spray 4 Active acetaminophen (TYLENOL) 325 mg tablet Take 2 tablets (650 mg total) by mouth every 6 (six) hours 4 Active OneTouch Verio Flex meter misc daily 4 Active diazePAM (VALIUM) 10 mg tablet Take 1 tablet (10 mg total) by mouth every 8 (eight) hours as needed Active dilTIAZem CD 120 mg 24 hr capsule Take 1 capsule (120 mg total) by mouth daily 4 Active docusate sodium (COLACE) 100 mg capsule Take 1 capsule (100 mg total) by mouth 2 (two) times a day 4 Active OneTouch Delica Plus Lancet 33 gauge misc daily 4 Active Synthroid 125 mcg tablet Take 1 tablet (125 mcg total) by mouth daily Active lidocaine (ASPERCREME) 4 % adhesive patch,medicate d Apply to left chest. Apply only once for up to 12 hours within a 24 hour period. Patches may be cut into smaller sizes with scissors prior to the removal of the release liner. Clothing may be worn over the area of application. For more information use the Dine in ADMINISTRATION link. 4 Active diltiazem (TIAZAC) 120 mg 24 hr capsule Take 1 capsule (120 mg total) by mouth daily 5 Active Eliquis 5 mg tablet TAKE 1 TABLET EVERY 12 HOURS 180 tablet 3 5 Active Active Problems Problem Noted Date Diagnosed [...] (02/04/2022): Added automatically from request for surgery [id number] Deviated nasal septum 03/17/2021 Assessment & Plan (04/21/2021 4:28 PM CORPORATE INTERN): Avoid nose blowing for one more week Continue nasal saline as often as possible Finish Augmentin Assessment & Plan (03/17/2021 12:19 PM CORPORATE INTERN): Septoplasty and Inferior Turbinate Reduction bilaterally Risks [...] turbinates Assessment & Plan (04/21/2021 4:28 PM CORPORATE INTERN): Avoid nose blowing for one more week Continue nasal saline as often as possible Finish Augmentin Assessment & Plan (03/17/2021 12:19 PM CORPORATE INTERN): Septoplasty and Inferior Turbinate Reduction bilaterally Risks [...] (02/04/2022): Added automatically from request for surgery [id number] SOB (shortness of breath) 02/04/2022 Overview (02/04/2022): Added automatically from request for surgery [id number] Immunizations Immunization Administration Dates Next Due Influenza, [...] containing alc ohol? 2-4 times a month 2024 Q2: How many drinks containi ng alcohol do you have on a typical day when you are drinking? 1 or 2 2024 Q3: How often do you have si x or more drinks on one occasion? Never 2024 Personal Safety Answer Date Recorded Have you ever been in or are you currently in a harmful physical or emotional relationship or is someone making you feel afraid or unsafe? Denies 04/25/2024 Sex and Gender Information Value Date Recorded Sex Assigned at Not on file Legal Sex Male 12:30 AM CORPORATE INTERN Gender Identity Not on file Sexual Orientation Not on file Last Filed Vital Signs Vital Sign Reading Time Taken Comments Blood Pressure 143/70 2024 3:00 PM CDT Pulse 70 2024 3:00 PM CDT Temperature 36.6 C (97.8 F) 2024 1:32 PM CDT Respiratory Rate 28 2024 3:00 PM CDT Oxygen Saturation 92% 2024 3:00 PM CDT Inhaled Oxygen Concentration - - Weight 117.9 kg (260 lb) 2024 1:32 PM CDT Height 177.8 cm (5' 10) 2024 1:32 PM CDT Body Mass Index 37.31 2024 1:32 PM CDT Plan of Treatment Not on file Goals Goal Patient Goal Type Associated Problems Recent Progress Patient-Stated? Author CCM Chronic Pain Care Plan Chronic Care Management Worsening( 1:38 PM CDT) No Sade Arango, VERNELL Note: Problem: Chronic Pain Goals: 1. Minimize further functional decline 2. Maximize quality of life 3. Control pain Strategies: - Activity/exercise program recommendation - Conservative stepwise pain medicine strategy with multi-disciplinary approach - Recommend healthy lifestyle strategies and compensatory methods as needed Medical Devices Implanted Type Area [employer] Application Developer Device Identifier Shelf Expiration Date Model / Serial / Lot Screw Screw N/A: Spine Lumbar Procedures Procedure Name Priority Date/Time Associated Diagnosis Comments PAIN MGMT IMAGING LUMBAR/SACRAL SELECTIVE NERVE ROOT INJ (TFE) BILATERAL Schedule Routine, Read Routine (OP Routine) 2024 2:57 PM CDT Lumbar post-laminectomy syndrome 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 Please refer to the physician's procedure / OR operative note. Nathaniel Palacios MD IMG PAIN MGMT PROCEDURES Narcisa l Result [facility] * MRI Lumbar Spine WO Contrast (09/03/2024 [...] it. Electronically signed by: Yosef Garcia M.D. us Nathaniel Palacios MD [facility] MRI PROCEDURES Final Resu lt * CT Abdomen Pelvis WO Contrast (01/11/2022 11:24 AM CDT) Anatomical Region Laterality Modality Body N/A Computed Tomogra phy 01/11/2022 11:4 7 AM CDT Narrative 01/11/2022 11:54 AM CDT EXAM DESCRIPTION: CT ABDOMEN PELVIS WO CONTRAST REASON FOR STUDY: Left upper quadrant pain for 3 months with recent worsening of pain para 20 pound weight gain in the last 2 weeks History of appendectomy. TECHNIQUE: CT scan of the abdomen and pelvis performed without intravenous and without oral contrast using helical scanning technique. Reconstructed coronal and sagittal MPR images reviewed. All images stored on PACS. Automated exposure control was used as a dose optimization technique for this examination. COMPARISON: None available FINDINGS: The sensitivity for detection of visceral lesions is diminished without the use of intravenous contrast. LOWER CHEST: Elevation of right hemidiaphragm. No significant pulmonary abnormalities. No effusion. LIVER: Normal size. Diffuse hypoattenuation compatible with steatosis no identified cystic or solid masses. GALLBLADDER: No stones identified. No wall thickening or inflammatory changes. BILE DUCTS: No intrahepatic or extrahepatic ductal dilatation. SPLEEN: Normal size. No focal lesions. PANCREAS: No identified cystic or solid masses. No significant calcifications. No adjacent inflammation or peripancreatic fluid collections. Pancreatic duct not dilated. ADRENALS: Normal. KIDNEYS/URINARY TRACT: No identified significant cystic or solid masses. No stones. No hydronephrosis or hydroureter. Urinary bladder is unremarkable. GI: No dilated bowel loops. No obvious wall thickening. Extensive colonic diverticulosis. PERITONEUM: No ascites or free air. RETROPERITONEUM: No mass or adenopathy. REPRODUCTIVE: No significant abnormality. VASCULATURE: No abdominal aortic aneurysm. MUSCULOSKELETAL: Postsurgical changes at L4-L5 is seen with intrapedicular screws, paired spinal rods and interbody fusion device. Trace retrolisthesis of L3 with respect L4 and anterolisthesis of L4 with respect L5. postsurgical changes from bone harvesting is noted within the posterior left ilium. OTHER: No other abnormality. IMPRESSION: 1. No acute findings identified to suggest etiology of patient's symptoms. 2. Elevation of the right hemidiaphragm. 3. Diffuse hepatic steatosis. 4. Uncomplicated diverticular disease. REFERENCE: Unless otherwise specified, no follow-up imaging is recommended for incidental renal and adrenal lesions per consensus recommendations based on imaging criteria. Further lab evaluation could be pursued based on clinical findings. Management of the Incidental Renal Mass on CT: A White Paper of the ACR Incidental Findings Committee. J Am Ale Radiol. 2018 Jun;15(2):264-273. Management of Incidental Adrenal Masses: A White Paper of the ACR Incidental Findings Committee. J Am Ale Radiol. 2017 Nov;14(8):3398-0186. THIS IS AN ELECTRONICALLY VERIFIED FINAL REPORT 01/11/2022 11:54 AM - Electronically signed by Juan Manuel Pompa M.D. JA: IHSAN Report ID: [id number] Reading Location: [id number] Procedure Note Juan Manuel Pompa MD - 01/11/2022 EXAM DESCRIPTION: CT ABDOMEN PELVIS WO CONTRAST REASON FOR STUDY: Left upper quadrant pain for 3 months with recentworsening of pain para 20 pound weight gain in the last 2 weeks History of appendectomy. TECHNIQUE: CT scan of the abdomen and pelvis performed without intravenousand without oral contrast using helical scanning technique. Reconstructed coronal and sagittal MPR images reviewed. All images stored on PACS. Automated exposure control was used as a dose optimization technique forthis examination. COMPARISON: None available FINDINGS: The sensitivity for detection of visceral lesions is diminished withoutthe use of intravenous contrast. LOWER CHEST: Elevation of right hemidiaphragm. No significant pulmonary abnormalities. No effusion. LIVER: Normal size. Diffuse hypoattenuation compatible with steatosisno identified cystic or solid masses. GALLBLADDER: No stones identified. No wall thickening or inflammatory changes. BILE DUCTS: No intrahepatic or extrahepatic ductal dilatation. SPLEEN: Normal size. No focal lesions. PANCREAS: No identified cystic or solid masses. No significant calcifications. No adjacent inflammation or peripancreatic fluidcollections. Pancreatic duct not dilated. ADRENALS: Normal. KIDNEYS/URINARY TRACT: No identified significant cystic or solid masses.No stones. No hydronephrosis or hydroureter. Urinary bladder isunremarkable. GI: No dilated bowel loops. No obvious wall thickening. Extensivecolonic diverticulosis. PERITONEUM: No ascites or free air. RETROPERITONEUM: No mass or adenopathy. REPRODUCTIVE: No significant abnormality. VASCULATURE: No abdominal aortic aneurysm. MUSCULOSKELETAL: Postsurgical changes at L4-L5 is seen withintrapedicular screws, paired spinal rods and interbody fusion device. Traceretrolisthesis of L3 with respect L4 and anterolisthesis of L4 with respect L5.postsurgical changes from bone harvesting is noted within the posterior left ilium. OTHER: No other abnormality. IMPRESSION: 1. No acute findings identified to suggest etiology of patient'ssymptoms. 2. Elevation of the right hemidiaphragm. 3. Diffuse hepatic steatosis. 4. Uncomplicated diverticular disease. REFERENCE: Unless otherwise specified, no follow-up imaging is recommendedfor incidental renal and adrenal lesions per consensus recommendations basedon imaging criteria. Further lab evaluation could be pursued based onclinical findings. Management of the Incidental Renal Mass on CT: A White Paper of the ACR Incidental Findings Committee. J Am Ale Radiol. 2018 Jun;15(2):264-273. Management of Incidental Adrenal Masses: A White Paper of the ACRIncidental Findings Committee. J Am Ale Radiol. 2017 Nov;14(8):3675-0019. THIS IS AN ELECTRONICALLY VERIFIED FINAL REPORT 01/11/2022 11:54 AM - Electronically signed by Juan Manuel Pompa M.D. JA: IHSAN Report ID: [id number] Reading Location: [id number] Glenn Pope MD IMG CT PROCEDURES F inal Result * PSA screen (03/21/2020 6:23 AM CORPORATE INTERN) PSA-Total 0.69 <=5.40 ng/mL AAYUSH SORTO (ARLINE) Comment: Interpretive Data AGE SEX REFERENCE INTERVAL 0 minutes-150 years Female None 0 minutes-49 years Male None 50-59 years Male 0-3.90 60-69 years Male 0-5.40 70-79 years Male 0-6.20 80-150 years Male 0-6.20 Current interpretive data last revised 2018. Testing performed by: [facility], [address] [place] [address], [place], [place]., [address] Blood specimen (specimen) 03/21/2020 6:23 AM CORPORATE INTERN 03/21/2020 12:25 PM CORPORATE INTERN us Ta Mares MD LAB BLOOD ORDERABLES Narcisa reardon Result AAYUSH SORTO (PONCE) [facility] Department [place] [address] * COLONOSCOPY (06/23/2016 12:00 AM CORPORATE INTERN) Anatomical Region Laterality Modality Other Narrative 06/23/2016 12:00 AM CORPORATE INTERN Ordered by an unspecified provider. Procedure Note Provider, MD Juan R - 06/23/2016 12:00 AM CST PROCEDURE REPORT Patient: STEPHEN MACIEL Service Date: 06/23/2016 Account: [id number] Room No: : 1960 Patient Type: [facility] Attend.: Damian Purcell M.D. Admit Date: 06/23/2016 [...] Damian Purcell MD On 06/30/2016 12:27 PM CORPORATE INTERN Damian Purcell M.D. HILDA/reina TD: 06/23/2016 09:47 Historical Provider ENDOSCOPY PROCEDURES Narcisa l Result from Last 3 Months or Most Recently Relevant to Health Maintenance Insurance [facility] MEDICARE AD[facility]ANTAGE [facility] MEDICARE Address: [address] [address] [place] [address] [facility] MEDICARE ADVANTAGE [facility] Address: [address] [address] [place] [address] 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
--- OUTSIDE RECORDS SUMMARY | 2024-11-04 17:00 | XMS_ITS | Clinical Summary ---
Author Organization [facility] Address [address] [place] [address] Care Team Providers Care Decontamination Technician Name Role Phone Ta Mares MD Primary Care Provider [phone] Chaz Mobley MD Unavailable Allergies No known [...] of application. For more information use the Teachable ADMINISTRATION link. 4 Active diltiazem (TIAZAC) 120 [...] (02/04/2022): Added automatically from request for surgery [id number] Deviated nasal septum 03/17/2021 Assessment & Plan (04/21/2021 4:28 PM BROADCAST MAINTENANCE TECHNICIAN): Avoid nose blowing for one more week Continue nasal saline as often as possible Finish Augmentin Assessment & Plan (03/17/2021 12:19 PM BROADCAST MAINTENANCE TECHNICIAN): Septoplasty and Inferior Turbinate Reduction bilaterally Risks [...] turbinates Assessment & Plan (04/21/2021 4:28 PM BROADCAST MAINTENANCE TECHNICIAN): Avoid nose blowing for one more week Continue nasal saline as often as possible Finish Augmentin Assessment & Plan (03/17/2021 12:19 PM BROADCAST MAINTENANCE TECHNICIAN): Septoplasty and Inferior Turbinate Reduction bilaterally Risks [...] (02/04/2022): Added automatically from request for surgery [id number] SOB (shortness of breath) 02/04/2022 Overview (02/04/2022): Added automatically from request for surgery [id number] Encounters Date Type Department Care Team Description 10/25/2024 Documentation [facility] at the [facility] [address] [facility] [address] [place] [address] Nathaniel Palacios MD multidisciplinary case conference 2024 1:28 PM CDT - 2024 11:59 PM CDT Hospital Encounter [facility] [address] [place] [address] for Advanced Medicine [address] [place] [address] Nathaniel Palacios MD Lumbar post-laminectomy syndrome; 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 Discharge Disposition: Discharge to home or self care 09/17/2024 Telephone [facility] [address] [place] [address] for Advanced Medicine [address] [place] [address] Nathaniel Palacios MD PMC Preprocedure; Anticoagulation 09/07/2024 Documentation [facility] [address] [place] [address] for Advanced Medicine [address] [place] [address] Nathaniel Palacios MD Test Results 09/07/2024 Telephone [facility] [address] [place] [address] for Advanced Medicine [address] [place] [address] Nathaniel Palacios MD spk w/nurse 09/03/2024 3:36 PM CDT - 09/03/2024 11:59 PM CDT Hospital Encounter [facility] [address] [place] [address] Lumbar post-laminectomy syndrome; Lumbar radiculopathy Discharge Disposition: Discharge to home or self care 08/06/2024 1:00 PM CDT - 08/06/2024 11:59 PM CDT Hospital Encounter [facility] [address] [place] [address] for Advanced Medicine [address] [place] [address] Nathaniel Palacios MD Lumbar post-laminectomy syndrome (Primary Dx); Lumbar radiculopathy; Spinal stenosis of lumbar region with neurogenic claudication Discharge Disposition: Discharge to home or self care from Last 3 Months Immunizations Immunization Administration [...] of Hypertension; Obesity Sister Shakira Stroke Sister [place] Relation Name Status Comments Brother 1 Edward Alive Brother 2 Edward brother Alive Brother 3 [place] Alive Father Edward sr Alive Maternal Grandmother Deborah Alive Mother Loretta Alive Other 1 Other 2 Sister Shakira Alive Social History Tobacco Use Types Packs/Day [...] on file Legal Sex Male 12:30 AM BROADCAST MAINTENANCE TECHNICIAN Gender Identity Not on file Sexual [...] 2024 1:32 PM CDT Plan of Treatment Health Maintenance Due Date Last Done Comments Depression Screening 1960 Hepatitis C Screening 1960 DTaP/Tdap/Td Vaccine (1 - Tdap) 09/27/1970 Hepatitis B Screening 09/27/1977 Pneumococcal vaccine 65+ (1 of 2 - PCV) 09/27/1978 Zoster Vaccine (1 of 2) 09/27/2009 Prostate Cancer Screening-PSA 03/21/2022, 02/28/2019, 04/05/2018, Additional history exists Fall Risk Assessment 05/20/2024 05/20/2023 Abdominal Aortic Aneurysm (A AA) Screen 09/27/2024 01/11/2022 Well Visit 65+ 09/27/2024 Influenza Vaccine (Season Ended) 2024 05/20/2023, 02/10/2022, [...] Chronic Care Management Worsening( 1:38 PM CDT) Sade Trujillo, RN Note: Problem: Chronic Pain Goals: 1. Minimize further functional decline 2. Maximize quality of life 3. Control pain Strategies: - Activity/exercise program recommendation - Conservative stepwise pain medicine strategy with multi-disciplinary approach - Recommend healthy lifestyle strategies and compensatory methods as needed Medical Devices Implanted Type Area Sewer Cleaner Device Identifier Shelf Expiration Date Model / [...] CDT PSA SCREEN Routine 03/21/2020 6:23 AM BROADCAST MAINTENANCE TECHNICIAN COLONOSCOPY 06/23/2016 12:00 AM BROADCAST MAINTENANCE TECHNICIAN from Last 3 Months or Most Recently Relevant to Health Maintenance Results * Imaging Lumbar/Sacral Selective Nerve Root INJ (TFE) Bilateral ([id number]) (2024 2:57 PM CDT) Narrative RAD_PACS_[facility] - 2024 2:57 PM CDT The images from this study are not interpreted by Radiology. Please refer to the physician's procedure / OR operative note. us Nathaniel Palacios MD IMG PAIN MGMT PROCEDURES [...] Yosef Garcia M.D. us Nathaniel Palacios MD IMG MRI PROCEDURES Final Resu lt * CT [...] Findings Committee. J Am Ale Radiol. 2017 Nov;14(8):9738-4136. THIS IS AN ELECTRONICALLY VERIFIED FINAL REPORT 01/11/2022 11:54 AM - Electronically signed by Juan Manuel Pompa M.D. JA: IHSAN Report ID: [id number] Reading Location: [id number] Procedure Note Juan Manuel Pompa MD - [...] Findings Committee. J Am Ale Radiol. 2017 Nov;14(8):5901-7561. THIS IS AN ELECTRONICALLY VERIFIED FINAL REPORT 01/11/2022 11:54 AM - Electronically signed by Juan Manuel Pompa M.D. JA: IHSAN Report ID: [id number] Reading Location: [id number] us Glenn Pope MD IMG CT PROCEDURES F inal Result * PSA screen (03/21/2020 6:23 AM BROADCAST MAINTENANCE TECHNICIAN) PSA-Total 0.69 <=5.40 ng/mL AAYUSH SORTO ([place]) Comment: Interpretive Data AGE SEX REFERENCE INTERVAL 0 minutes-150 years Female None 0 minutes-49 years Male None 50-59 years Male 0-3.90 60-69 years Male 0-5.40 70-79 years Male 0-6.20 80-150 years Male 0-6.20 Current interpretive data last revised 2018. Testing performed by: [facility], [address] [place] [address], [place]., [address] Blood specimen (specimen) 03/21/2020 6:23 AM BROADCAST MAINTENANCE TECHNICIAN 03/21/2020 12:25 PM BROADCAST MAINTENANCE TECHNICIAN Ta Mares MD LAB BLOOD ORDERABLES Narcisa l Result AAYUSH MACARIO ([place]) [address] [facility] Department [place] [address] * COLONOSCOPY (06/23/2016 12:00 AM BROADCAST MAINTENANCE TECHNICIAN) Anatomical Region Laterality Modality Other Narrative 06/23/2016 12:00 AM BROADCAST MAINTENANCE TECHNICIAN Ordered by an unspecified provider. Procedure Note ProviderJuan R MD - 06/23/2016 12:00 AM CST PROCEDURE REPORT Patient: STEPHEN MACIEL Service Date: 06/23/2016 Account: [id number] Room No: : 1960 Patient Type: [facility] Attend.: Damian Purcell M.D. Admit Date: [...] Damian Purcell MD On 06/30/2016 12:27 PM BROADCAST MAINTENANCE TECHNICIAN Shalonda Ayoub/reina TD: 06/23/2016 09:47 us Historical Provider ENDOSCOPY PROCEDURES Narcisa l Result from Last 3 Months or Most Recently Relevant to Health Maintenance [place] [address] [facility] MEDICARE ADVANTAGE [facility] MEDICARE ADVANTAGE [facility] MDCR HMO REF [facility] Advance Directives For more information, please contact: [phone] * Full Code (Latest Code Status on File) Date Activated Date Inactivated Comments 05/17/2023 4:41 PM 05/20/2023 7:52 PM * Full Code Date Activated Date Inactivated Comments 02/17/2022 4:54 PM 02/17/2022 11:16 PM Care Teams Decontamination Technician Relationship Specialty Start Date End Date Ta Mares MD [address] [address] PCP - General 04/06/17 Chaz Mobley MD [address] [facility] [address] [place] [address] [place] [address] Consulting Physician Pulmonary Disease 05/20/23
--- OUTSIDE RECORDS SUMMARY | 2024-11-04 17:00 | XMS_ITS | Encounter Summary ---
Author Organization [facility] Address [address] [place] [address] Phone Care Team Providers Care Quality Assurance Supervisor Trim Name Role Phone Ta Mares MD Primary Care Provider [phone] Chaz Mobley MD Unavailable Encounter Details Date [...] on file Legal Sex Male 12:30 AM ASSISTANT NURSE MANAGER Gender Identity Not on file Sexual Orientation [...] COVID: Suspected 05/17/2023 05/17/2023 05/17/2023 3:53 PM ASSISTANT NURSE MANAGER documented as of this encounter Care Teams Quality Assurance Supervisor Trim Relationship Specialty Start Date End Date Ta Mares MD [address] [address] PCP - General 04/06/17 Chaz Mobley MD [address] [place] [address] [address] Consulting Physician Pulmonary Disease 05/20/23 documented as of this encounter
--- OUTSIDE RECORDS SUMMARY | 2024-11-04 17:00 | XMS_ITS | Clinical Summary ---
Author Organization [facility] Address [address] [place] [address] Phone Care Team Providers Care Hospital Television Rental Clerk Name Role Phone Ta Mares MD Primary Care Provider [phone] Allergies No known active allergies Medications albuterol [...] for Insomnia. Active naloxone (NARCAN) 4 mg/spray Sun[place], Non-Aerosol EMERGENCY USE ONLY: Administer 1 spray [...] daily. Active fluticasone propionate (FLONASE) 50 mcg/spray [place], Suspension nasal inhaler Administer 2 Sprays in [...] of application. For more information use the Synker ADMINISTRATION link. Active polyethylene glycol (MIRALAX) 17 gram Powder in Packet Take 1 Packet (17 Grams) by mouth 2 times daily. Active oxyCODONE (ROXICODONE) 10 mg tabletIndicati ons:Closed fracture of multiple ribs of left side, initial encounter Take 1 Tablet (10 mg) by mouth every 6 hours as needed for severe pain. Max Daily Amount: 40 mg 20 Tablet 03/24/2024 4:35 PM BATTERBOARD SETTER Active Active Problems Problem Noted Date Diagnosed Date Anticoagulated 03/21/2024 Fall down stairs 03/20/2024 Closed fracture of rib of left side 03/20/2024 Right arm weakness 03/13/2024 Hypothyroidism 03/13/2024 Dysarthria 03/13/2024 Lumbar radiculopathy 12/23/2023 Paroxysmal A-fib 05/20/2023 PAGE (obstructive sleep apnea) 05/18/2023 Encounters Date Type Department Care Team Description 10/17/2024 External Device Data ST[facility] ABSTRACTION Provider, Abstract 10/16/2024 External Device Data [facility] ABSTRACTION Provider, Abstract 09/20/2024 External Device Data [facility] ABSTRACTION Provider, Abstract 09/19/2024 External Device Data [facility] ABSTRACTION Provider, Abstract 09/18/2024 External Device Data [facility] ABSTRACTION Provider, Abstract 09/04/2024 External Device Data [facility] ABSTRACTION Provider, [...] on file Legal Sex Male 1:21 PM BATTERBOARD SETTER Gender Identity Not on file Sexual Orientation Not on file Last Filed Vital Signs Vital Sign Reading Time Taken Comments Blood Pressure 135/66 03/24/2024 11:26 AM BATTERBOARD SETTER Pulse 86 03/24/2024 3:29 PM BATTERBOARD SETTER Temperature 36.3 C (97.4 F) 03/24/2024 11:26 AM BATTERBOARD SETTER Respiratory Rate 20 03/24/2024 3:29 PM BATTERBOARD SETTER Oxygen Saturation 95% 03/24/2024 3:29 PM BATTERBOARD SETTER Inhaled Oxygen Concentration - - Weight 127 kg (280 lb) 03/22/2024 10:11 AM BATTERBOARD SETTER Height 177.8 cm (5' 10) 03/22/2024 10:11 AM BATTERBOARD SETTER Body Mass Index 40.18 03/22/2024 10:11 AM BATTERBOARD SETTER Plan of Treatment Health Maintenance Due Date Last Done Comments DTAP/TDAP/TD VACCINES (1 - Tdap) 09/27/1978 PNEUMOCOCCAL VACCINE 50+ YEA RS (1 of 2 - PCV) 09/27/1978 FIT-DNA Q 3 years 09/27/2004 FIT/FOBT Q 1 year 09/27/2004 Flex Sig/CT Colonography Q 5 years 09/27/2004 ZOSTER VACCINE (1 of 2) 09/27/2009 RSV VACCINE (60+ or ) (1 - Risk 60-74 years 1-dose series) 2019 INFLUENZA VACCINE (#1) 2024 4, 02/12/2020, 03/05/2015, Additional history exists COLORECTAL SCREENING 06/23/2026 06/23/2016, 06/23/19 17 Colorectal Cancer Screening 06/23/2026 Pre-Diabetes and Diabetes Screening 03/12/2027 03/12/2024 Procedures Procedure Name Priority Date/Time Associated Diagnosis Comments HEMOGLOBIN A1C Stat 03/12/2024 2:41 PM BATTERBOARD SETTER from Last 3 Months or Most Recently Relevant to Health Maintenance Results * HEMOGLOBIN A1C (03/12/2024 2:41 PM BATTERBOARD SETTER) HEMOGLOBIN A1C 5.6 <5.7 % 03/12/2024 4:47 PM BATTERBOARD SETTER [facility] EST. AVG GLUCOSE, A1C 114 mg/dL 03/12/2024 4:47 PM BATTERBOARD SETTER [facility] Blood Venipuncture / Unknown 03/12/2024 2:41 PM BATTERBOARD SETTER 03/12/2024 2:58 PM BATTERBOARD SETTER Narrative [facility] - 03/12/2024 4:47 PM BATTERBOARD SETTER HGB A1C INTERPRETATION NORMAL: <5.7% PRE-DIABETES: 5.7 - 6.4% DIABETES: 6.5% OR GREATER us Matthew Fuller MD CHEMISTRY ORDERABLES Final Resu lt [facility] CLIA# [id number] 5 [facility] [place] [address] from Last 3 Months or Most Recently Relevant to Health Maintenance Insurance AETNA CHOICE POS II [facility] [id number] RX [facility] [employer] RX Member Subscriber Plan / Payer (Ef fective 2024-Present) Name:Stephen Maciel Relation to Subscriber:Not on file Name:Stephen Maciel Subscriber ID:Not on file Date of :1960 Payer ID:Not on file Group ID:[id number] Type:RX Medicare Part D Address: [address] [employer] Commercial Advance Directives For more information, please contact: [phone] * Full Code (Latest Code Status on File) Date Activated Date Inactivated Comments 03/21/2024 6:25 AM 03/24/2024 7:11 PM * Full Code Date Activated Date Inactivated Comments 03/13/2024 2:56 AM 03/13/2024 4:13 PM Care Teams Hospital Television Rental Clerk Relationship Specialty Start Date End Date Ta Mares MD [address] [place] [address] PCP - General Family Practice 03/12/24
--- OUTSIDE RECORDS SUMMARY | 2024-11-04 17:00 | XMS_ITS ---
Author Organization Unknown Medications Medication Instructions Effective Dates (start - stop) Status atorvastatin 20 MG Oral Tablet 2022-12-24 T00:00:00Z - Completed clindamycin 300 MG Oral Capsule 2023-07-02 5T00:00:00Z - Completed amoxicillin 500 MG Oral Capsule 2023-03-02 4T00:00:00Z - Completed amiodarone hydrochloride 200 MG Oral Tablet - Completed amoxicillin 500 MG Oral Tablet 2023-07-21 T00:00:00Z - Completed - - Compl eted 3 ML semaglutide 1.34 MG/ML Pen Injector [Ozempic] - Completed 3 ML semaglutide 1.34 MG/ML Pen Injector [Ozempic] - Completed 24 HR metformin hydrochlorid e 500 MG Extended Release Oral Tablet - Compl eted apixaban 5 MG Oral Tablet [Eliquis] - Completed furosemide 20 MG Oral Tablet [id number] 0:00:00Z - Completed acetaminophen 325 MG / hydrocodone bitartrate 10 MG Oral Tablet - Completed 3 ML semaglutide 1.34 MG/ML Pen Injector [Ozempic] - Completed acetaminophen 325 MG / hydrocodone bitartrate 10 MG Oral Tablet - Completed amoxicillin 500 MG Oral Capsule 2023-01-31 3T00:00:00Z - Completed amiodarone hydrochloride 200 MG Oral Tablet - Completed duloxetine 60 MG Delayed Rel ease Oral Capsule - Completed polyethylene glycol 3350 170 00 MG Powder for Oral Solution - Completed 3 ML semaglutide 1.34 MG/ML Pen Injector [Ozempic] - Completed amiodarone hydrochloride 200 MG Oral Tablet - Completed 3 ML semaglutide 1.34 MG/ML Pen Injector [Ozempic] - Completed duloxetine 60 MG Delayed Rel ease Oral Capsule - Completed acetaminophen 325 MG / hydrocodone bitartrate 10 MG Oral Tablet - Completed tamsulosin hydrochloride 0.4 MG Oral Capsule - Completed furosemide 20 MG Oral Tablet [id number] 0:00:00Z - Completed irbesartan 150 MG Oral Tablet 2023-10-28 00:00:00Z - Completed mometasone furoate 0.05 MG/A CTUAT Metered Dose Nasal [place] - Completed acetaminophen 325 MG / hydrocodone bitartrate 10 MG Oral Tablet - Completed atorvastatin 20 MG Oral Tablet 2023-09-16 T00:00:00Z - Completed irbesartan 150 MG Oral Tablet 2023-03-07 00:00:00Z - Completed methocarbamol 500 MG Oral Tablet 00:00:00Z - Completed acetaminophen 325 MG / hydrocodone bitartrate 10 MG Oral Tablet - Completed 24 HR metformin hydrochlorid e 500 MG Extended Release Oral Tablet - Compl eted amiodarone hydrochloride 200 MG Oral Tablet - Completed furosemide 20 MG Oral Tablet [id number] 0:00:00Z - Completed acetaminophen 325 MG / hydrocodone bitartrate 10 MG Oral Tablet - Completed diazepam 10 MG Oral Tablet [id number]: 00:00Z - Completed acetaminophen 325 MG / hydrocodone bitartrate 10 MG Oral Tablet - Completed 3 ML semaglutide 1.34 MG/ML Pen Injector [Ozempic] - Completed - - Compl eted 3 ML semaglutide 1.34 MG/ML Pen Injector [Ozempic] - Completed apixaban 5 MG Oral Tablet [Eliquis] - Completed acetaminophen 325 MG / hydrocodone bitartrate 10 MG Oral Tablet - Completed acetaminophen 325 MG / hydrocodone bitartrate 10 MG Oral Tablet - Completed methocarbamol 500 MG Oral Tablet 00:00:00Z - Completed - - Compl eted atorvastatin 20 MG Oral Tablet 2023-03-24 T00:00:00Z - Completed mometasone furoate 0.05 MG/A CTUAT Metered Dose Nasal [place] - Completed 3 ML semaglutide 1.34 MG/ML Pen Injector [Ozempic] - Completed irbesartan 150 MG Oral Tablet 2022-12-24 00:00:00Z - Completed - - Compl eted irbesartan 150 MG Oral Tablet 2023-08-17 00:00:00Z - Completed acetaminophen 325 MG / hydrocodone bitartrate 10 MG Oral Tablet - Completed zolpidem tartrate 10 MG Oral Tablet - Completed acetaminophen 325 MG / hydrocodone bitartrate 10 MG Oral Tablet - Completed - - Compl eted apixaban 5 MG Oral Tablet [Eliquis] - Completed 3 ML semaglutide 1.34 MG/ML Pen Injector [Ozempic] - Completed sumatriptan 50 MG Oral Tablet 2023-06-12 00:00:00Z - Completed 3 ML semaglutide 1.34 MG/ML Pen Injector [Ozempic] - Completed - - Compl eted acetaminophen 325 MG / hydrocodone bitartrate 10 MG Oral Tablet - Completed acetaminophen 325 MG / hydrocodone bitartrate 10 MG Oral Tablet - Completed acetaminophen 325 MG / hydrocodone bitartrate 10 MG Oral Tablet - Completed mometasone furoate 0.05 MG/A CTUAT Metered Dose Nasal [place] - Completed duloxetine 60 MG Delayed Rel ease Oral Capsule - Completed 24 HR metformin hydrochlorid e 500 MG Extended Release Oral Tablet - Compl eted irbesartan 150 MG Oral Tablet 2023-06-06 00:00:00Z - Completed Patient Care team information Name Category Status Period Participants - - Proposed period not known -
--- NOTE | 2024-11-04 17:06 | PC.NURSE ---
SPO2 READING ON ROOM AIR AT 79%. REPORTS THAT PATIENT IS SUPPOSED TO BE ON OXYGEN BUT HE DOES NOT WEAR IT. PLACED PATIENT ON 2 LITERS NC. SPO2 INCREASED TO 89%. DR RODRIGUEZ IS AWARE.
--- NOTE | 2024-11-04 17:10 | PC.NURSE ---
PATIENT BEING TRANSPORTED TO CT VIA STRETCHER.
--- NOTE | 2024-11-04 17:28 | PC.NURSE ---
PATIENT HAS RETURNED FROM CT VIA STRETCHER. PLACED BACK ON MONITOR. SPO2 AT 91% ON 2 LITERS NC
--- OUTSIDE RECORDS SUMMARY | 2024-11-04 17:32 | XMS_ITS ---
[...] - Completed furosemide 20 MG Oral Tablet [id number] 0:00:00Z - Completed acetaminophen 325 MG / [...] - Completed furosemide 20 MG Oral Tablet [id number] 0:00:00Z - Completed irbesartan 150 MG Oral Tablet 2023-10-28 00:00:00Z - Completed mometasone furoate 0.05 MG/A CTUAT Metered Dose Nasal [place] - Completed acetaminophen 325 MG / hydrocodone [...] - Completed furosemide 20 MG Oral Tablet [id number] 0:00:00Z - Completed acetaminophen 325 MG / hydrocodone bitartrate 10 MG Oral Tablet - Completed diazepam 10 MG Oral Tablet [id number]: 00:00Z - Completed acetaminophen 325 MG / [...] furoate 0.05 MG/A CTUAT Metered Dose Nasal [place] - Completed 3 ML semaglutide 1.34 MG/ML [...] furoate 0.05 MG/A CTUAT Metered Dose Nasal [place] - Completed duloxetine 60 MG Delayed Rel ease Oral Capsule - Completed 24 HR metformin hydrochlorid e 500 MG Extended Release Oral Tablet - Compl eted irbesartan 150 MG Oral Tablet 2023-06-06 00:00:00Z - Completed Patient Care team information Name Category Status Period Participants - - Proposed period not known -
--- OUTSIDE RECORDS SUMMARY | 2024-11-04 17:32 | XMS_ITS | Encounter Summary ---
Author Organization [facility] Address [address] [place] [address] Phone Care Team Providers Care Cinder Block Maker Name Role Phone Ta Mares MD Primary Care Provider [phone] Chaz Mobley MD Unavailable Encounter Details Date [...] on file Legal Sex Male 12:30 AM LABORATORY CHEMIST Gender Identity Not on file Sexual Orientation [...] COVID: Suspected 05/17/2023 05/17/2023 05/17/2023 3:53 PM LABORATORY CHEMIST documented as of this encounter Care Teams Cinder Block Maker Relationship Specialty Start Date End Date Ta Mares MD [address] [address] PCP - General 04/06/17 Chaz Mobley MD [address] [place] [address] [address] Consulting Physician Pulmonary Disease 05/20/23 documented as of this encounter
--- OUTSIDE RECORDS SUMMARY | 2024-11-04 17:32 | XMS_ITS | Clinical Summary ---
Author Organization [facility] Address [address] [facility] [address] [place] [address] Phone Care Team Providers Care Tool And Machine Maintainer Name Role Phone Ta Mares MD Primary Care Provider [phone] Allergies No known active allergies Medications polyethylene [...] mg by mouth nightly. Active HYDROcodone-roosevelt taminophen (Shannon) 10-325 MG Tablet Take 1 Tablet by [...] Active fluticasone (FLONASE) 50 MCG/ACT Suspension 1 [place] by Nasal route daily. Use in each [...] Comments Blood Pressure 114/74 03/10/2024 11:00 AM FIELDWORK COORDINATOR Pulse 85 03/10/2024 11:00 AM FIELDWORK COORDINATOR Temperature 36.6 C (97.8 F) 03/10/2024 9:07 AM FIELDWORK COORDINATOR Respiratory Rate 21 03/10/2024 11:00 AM FIELDWORK COORDINATOR Oxygen Saturation 97% 03/10/2024 11:00 AM FIELDWORK COORDINATOR Inhaled Oxygen Concentration - - Weight 113.4 kg (250 lb) 03/10/2024 9:07 AM FIELDWORK COORDINATOR Height 177.8 cm (5' 10) 03/10/2024 9:07 AM FIELDWORK COORDINATOR Body Mass Index 35.87 03/10/2024 9:07 AM FIELDWORK COORDINATOR Plan of Treatment Health Maintenance Due Date [...] AETNA SOI MEDICARE C [employer] Care Teams Tool And Machine Maintainer Relationship Specialty Start Date End Date Ta Mares MD [address] [address] PCP - General Family Medicine 07/25/23
--- OUTSIDE RECORDS SUMMARY | 2024-11-04 17:32 | XMS_ITS | Clinical Summary ---
Author Organization [facility] Address [address] [place] [address] Phone Care Team Providers Care Lens Hardener Name Role Phone Ta Mares MD Primary Care Provider [phone] Allergies No known active allergies Medications albuterol [...] for Insomnia. Active naloxone (NARCAN) 4 mg/spray [place], Non-Aerosol EMERGENCY USE ONLY: Administer 1 spray [...] daily. Active fluticasone propionate (FLONASE) 50 mcg/spray [place], Suspension nasal inhaler Administer 2 Sprays in [...] of application. For more information use the [employer] ADMINISTRATION link. Active polyethylene glycol (MIRALAX) 17 gram Powder in Packet Take 1 Packet (17 Grams) by mouth 2 times daily. Active oxyCODONE (ROXICODONE) 10 mg tabletIndicati ons:Closed fracture of multiple ribs of left side, initial encounter Take 1 Tablet (10 mg) by mouth every 6 hours as needed for severe pain. Max Daily Amount: 40 mg 20 Tablet 03/24/2024 4:35 PM VIDEO PRODUCER Active Active Problems Problem Noted Date Diagnosed [...] on file Legal Sex Male 1:21 PM VIDEO PRODUCER Gender Identity Not on file Sexual Orientation Not on file Last Filed Vital Signs Vital Sign Reading Time Taken Comments Blood Pressure 135/66 03/24/2024 11:26 AM VIDEO PRODUCER Pulse 86 03/24/2024 3:29 PM VIDEO PRODUCER Temperature 36.3 C (97.4 F) 03/24/2024 11:26 AM VIDEO PRODUCER Respiratory Rate 20 03/24/2024 3:29 PM VIDEO PRODUCER Oxygen Saturation 95% 03/24/2024 3:29 PM VIDEO PRODUCER Inhaled Oxygen Concentration - - Weight 127 kg (280 lb) 03/22/2024 10:11 AM VIDEO PRODUCER Height 177.8 cm (5' 10) 03/22/2024 10:11 AM VIDEO PRODUCER Body Mass Index 40.18 03/22/2024 10:11 AM VIDEO PRODUCER Plan of Treatment Health Maintenance Due Date [...] Comments HEMOGLOBIN A1C Stat 03/12/2024 2:41 PM VIDEO PRODUCER from Last 3 Months or Most Recently Relevant to Health Maintenance Results * HEMOGLOBIN A1C (03/12/2024 2:41 PM VIDEO PRODUCER) HEMOGLOBIN A1C 5.6 <5.7 % 03/12/2024 4:47 PM VIDEO PRODUCER [facility] EST. AVG GLUCOSE, A1C 114 mg/dL 03/12/2024 4:47 PM VIDEO PRODUCER [facility] Blood Venipuncture / Unknown 03/12/2024 2:41 PM VIDEO PRODUCER 03/12/2024 2:58 PM VIDEO PRODUCER Narrative [facility] - 03/12/2024 4:47 PM VIDEO PRODUCER HGB A1C INTERPRETATION NORMAL: <5.7% PRE-DIABETES: 5.7 - 6.4% DIABETES: 6.5% OR GREATER us Matthew Fuller MD CHEMISTRY ORDERABLES Final Resu lt [facility] CLIA# [id number] [facility] [address] from Last 3 Months or Most Recently Relevant to Health Maintenance Insurance [employer]ET[employer] CHOICE POS II [facility] [id number] RX [facility] [employer] RX Member Subscriber Plan / Payer (Ef fective 2024-Present) Name:Stephen Maciel Relation to Subscriber:Not on file Name:Stephen Maciel Subscriber ID:Not on file Date of :1960 Payer ID:Not on file Group ID:[id number] Type:RX Medicare Part D Address: [address] [facility] Commercial Advance Directives For more information, please contact: [phone] * Full Code (Latest Code Status on File) Date Activated Date Inactivated Comments 03/21/2024 6:25 AM 03/24/2024 7:11 PM * Full Code Date Activated Date Inactivated Comments 03/13/2024 2:56 AM 03/13/2024 4:13 PM Care Teams Lens Hardener Relationship Specialty Start Date End Date Ta Mares MD [address] [place] [address] PCP - General Family Practice 03/12/24
--- OUTSIDE RECORDS SUMMARY | 2024-11-04 17:32 | XMS_ITS | Referral Summary ---
Author Organization [facility] Address [address] [place] [address] Care Team Providers Care Bakery Worker Name Role Phone Ta Mares MD Primary Care Provider [phone] Chaz Mobley MD Unavailable Encounters Date Type Department Care Team Description 10/25/2024 Documentation [facility] [address] [place] [address] for Advanced Medicine [address] [place] [address] Nathaniel Palacios MD multidisciplinary case conference 2024 1:28 PM CDT - 2024 11:59 PM CDT Hospital Encounter 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 Discharge Disposition: Discharge to home or self care 09/17/2024 Telephone [facility] [address] [place] [address] for Advanced Medicine [address] [place] [address] Nathaniel Palacios MD PMC Preprocedure; Anticoagulation 09/07/2024 Documentation [facility] [address] [place] [address] for Advanced Medicine [address] [place] [address] Nathaniel Palacios MD Test Results 09/07/2024 Telephone [facility] [address] [place] [address] for Advanced Medicine [address] [place] [address] Nathaniel Palacios MD spk w/nurse 09/03/2024 3:36 PM CDT - 09/03/2024 11:59 PM CDT Hospital Encounter [facility] [address] [place] [address] Lumbar post-laminectomy syndrome; Lumbar radiculopathy Discharge Disposition: Discharge to home or self care 08/06/2024 1:00 PM CDT - 08/06/2024 11:59 PM CDT Hospital Encounter [facility] [address] [facility] [address] [place] [address] Nathaniel Palacios MD Lumbar post-laminectomy syndrome (Primary [...] of application. For more information use the [employer] ADMINISTRATION link. 4 Active diltiazem (TIAZAC) 120 [...] (02/04/2022): Added automatically from request for surgery [id number] Deviated nasal septum 03/17/2021 Assessment & Plan (04/21/2021 4:28 PM DYNAMIC BALANCER SET UP WORKER): Avoid nose blowing for one more week Continue nasal saline as often as possible Finish Augmentin Assessment & Plan (03/17/2021 12:19 PM DYNAMIC BALANCER SET UP WORKER): Septoplasty and Inferior Turbinate Reduction bilaterally Risks [...] turbinates Assessment & Plan (04/21/2021 4:28 PM DYNAMIC BALANCER SET UP WORKER): Avoid nose blowing for one more week Continue nasal saline as often as possible Finish Augmentin Assessment & Plan (03/17/2021 12:19 PM DYNAMIC BALANCER SET UP WORKER): Septoplasty and Inferior Turbinate Reduction bilaterally Risks [...] (02/04/2022): Added automatically from request for surgery [id number] SOB (shortness of breath) 02/04/2022 Overview (02/04/2022): Added automatically from request for surgery [id number] Immunizations Immunization Administration Dates Next Due Influenza, [...] on file Legal Sex Male 12:30 AM DYNAMIC BALANCER SET UP WORKER Gender Identity Not on file Sexual Orientation [...] as needed Medical Devices Implanted Type Area Finger Cobbler Device Identifier Shelf Expiration Date Model / [...] CDT PSA SCREEN Routine 03/21/2020 6:23 AM DYNAMIC BALANCER SET UP WORKER COLONOSCOPY 06/23/2016 12:00 AM DYNAMIC BALANCER SET UP WORKER from Last 3 Months or Most Recently Relevant to Health Maintenance Results * Imaging Lumbar/Sacral Selective Nerve Root INJ (TFE) Bilateral (49467) (2024 2:57 PM CDT) Narrative [facility]_P[facility] - [...] Findings Committee. J Am Ale Radiol. 2017 Nov;14(8):4504-0009. THIS IS AN ELECTRONICALLY VERIFIED FINAL REPORT 01/11/2022 11:54 AM - Electronically signed by Juan Manuel Pompa M.D. JA: IHSAN Report ID: [id number] Reading Location: [id number] Procedure Note Juan Manuel Pompa MD - [...] Findings Committee. J Am Ale Radiol. 2017 Nov;14(8):8340-6158. THIS IS AN ELECTRONICALLY VERIFIED FINAL REPORT 01/11/2022 11:54 AM - Electronically signed by Juan Manuel Pompa M.D. JA: IHSAN Report ID: [id number] Reading Location: [id number] Glenn Pope MD IMG CT PROCEDURES F inal Result * PSA screen (03/21/2020 6:23 AM DYNAMIC BALANCER SET UP WORKER) PSA-Total 0.69 <=5.40 ng/mL AAYUSH SORTO ([place]) Comment: Interpretive Data AGE SEX REFERENCE INTERVAL 0 minutes-150 years Female None 0 minutes-49 years Male None 50-59 years Male 0-3.90 60-69 years Male 0-5.40 70-79 years Male 0-6.20 80-150 years Male 0-6.20 Current interpretive data last revised 2018. Testing performed by: [facility], [address] [place] [address], [place]., [address] Blood specimen (specimen) 03/21/2020 6:23 AM DYNAMIC BALANCER SET UP WORKER 03/21/2020 12:25 PM DYNAMIC BALANCER SET UP WORKER us Ta Mares MD LAB BLOOD ORDERABLES Narcisa reardon Result AAYUSH SORTO ([place]) [address] [facility] Department [place] [address] * COLONOSCOPY (06/23/2016 12:00 AM DYNAMIC BALANCER SET UP WORKER) Anatomical Region Laterality Modality Other Narrative 06/23/2016 12:00 AM DYNAMIC BALANCER SET UP WORKER Ordered by an unspecified provider. Procedure Note Provider, MD Juan R - 06/23/2016 12:00 AM CST PROCEDURE REPORT Patient: STEPHEN MACIEL Service Date: 06/23/2016 Account: [id number] Room No: : 1960 Patient Type: [facility] Attend.: Damian Purcell M.D. Admit Date: 06/23/2016 [...] Damian Purcell MD On 06/30/2016 12:27 PM DYNAMIC BALANCER SET UP WORKER Damian Purcell M.D. HILDA/reina TD: 06/23/2016 09:47 Historical Provider ENDOSCOPY PROCEDURES Narcisa l Result from Last 3 Months or Most Recently Relevant to Health Maintenance Insurance [facility] MEDICARE ADVANTAGE [facility] MED[facility] [place] [address] Advance Directives For more information, please contact: [phone] * Full Code (Latest Code Status on File) Date Activated Date Inactivated Comments 05/17/2023 4:41 PM 05/20/2023 7:52 PM * Full Code Date Activated Date Inactivated Comments 02/17/2022 4:54 PM 02/17/2022 11:16 PM Care Teams Bakery Worker Relationship Specialty Start Date End Date Ta Mares MD [address] [address] PCP - General 04/06/17 Chaz Mobley MD [address] [place] [address] [place] [address] Consulting Physician Pulmonary Disease 05/20/23
--- OUTSIDE RECORDS SUMMARY | 2024-11-04 17:32 | XMS_ITS | Encounter Summary ---
Author Organization [facility] Address [address] [place] [address] Phone Care Team Providers Care Instrument Repair Technician Name Role Phone Ta Mares MD Primary Care Provider [phone] Chaz Mobley MD Unavailable Encounter Details Date [...] on file Legal Sex Male 12:30 AM SKI BASE TRIMMER Gender Identity Not on file Sexual Orientation [...] COVID: Suspected 05/17/2023 05/17/2023 05/17/2023 3:53 PM SKI BASE TRIMMER documented as of this encounter Care Teams Instrument Repair Technician Relationship Specialty Start Date End Date Ta Mares MD [address] [address] PCP - General 04/06/17 Chaz Mobley MD [address] [place] [address] DR KAUR [address] [place] [address] Consulting Physician Pulmonary Disease 05/20/23 documented as of this encounter
--- OUTSIDE RECORDS SUMMARY | 2024-11-04 17:33 | XMS_ITS | Clinical Summary ---
Author Organization [facility] Address [address] [place] [address] Care Team Providers Care Circular Knitter Name Role Phone Ta Mares MD Primary Care Provider [phone] Chaz Mobley MD Unavailable Allergies No known [...] of application. For more information use the [employer] ADMINISTRATION link. 4 Active diltiazem (TIAZAC) 120 [...] (02/04/2022): Added automatically from request for surgery [id number] Deviated nasal septum 03/17/2021 Assessment & Plan (04/21/2021 4:28 PM SAFETY INTERN): Avoid nose blowing for one more week Continue nasal saline as often as possible Finish Augmentin Assessment & Plan (03/17/2021 12:19 PM SAFETY INTERN): Septoplasty and Inferior Turbinate Reduction bilaterally [...] turbinates Assessment & Plan (04/21/2021 4:28 PM SAFETY INTERN): Avoid nose blowing for one more week Continue nasal saline as often as possible Finish Augmentin Assessment & Plan (03/17/2021 12:19 PM SAFETY INTERN): Septoplasty and Inferior Turbinate Reduction bilaterally [...] (02/04/2022): Added automatically from request for surgery [id number] SOB (shortness of breath) 02/04/2022 Overview (02/04/2022): Added automatically from request for surgery [id number] Encounters Date Type Department Care Team Description 10/25/2024 Documentation [facility] Advanced [facility] [address] [facility] [address] [place] [address] Nathaniel Palacios MD multidisciplinary case conference 2024 1:28 PM CDT - 2024 11:59 PM CDT Hospital Encounter [facility] [address] [place] [address] for Advanced Medicine [address] [place] [address] Nathaniel Palacios MD Lumbar post-laminectomy syndrome; 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 Discharge Disposition: Discharge to home or self care 09/17/2024 Telephone [facility] [address] [place] [address] for Advanced Medicine [address] [place] [address] Nathaniel Palacios MD PMC Preprocedure; Anticoagulation 09/07/2024 Documentation [facility] [address] [place] [address] for Advanced Medicine [address] [place] [address] Nathaniel Palacios MD Test Results 09/07/2024 Telephone [facility] [address] [place] [address] for Advanced Medicine [address] [place] [address] Nathaniel Palacios MD spk w/nurse 09/03/2024 3:36 PM CDT - 09/03/2024 11:59 PM CDT Hospital Encounter [facility]) [address] [place] [address] Lumbar post-laminectomy syndrome; Lumbar radiculopathy Discharge Disposition: Discharge to home or self care 08/06/2024 1:00 PM CDT - 08/06/2024 11:59 PM CDT Hospital Encounter [facility] [address] [place] [address] for Advanced Medicine [address] [place] [address] Nathaniel Palacios MD Lumbar post-laminectomy syndrome (Primary [...] of Hypertension; Obesity Sister Shakira Stroke Sister [place] Relation Name Status Comments Brother 1 Edward [...] on file Legal Sex Male 12:30 AM SAFETY INTERN Gender Identity Not on file Sexual [...] as needed Medical Devices Implanted Type Area Supervisor Partial Denture Department Device Identifier Shelf Expiration Date Model / [...] CDT PSA SCREEN Routine 03/21/2020 6:23 AM SAFETY INTERN COLONOSCOPY 06/23/2016 12:00 AM SAFETY INTERN from Last 3 Months or Most Recently Relevant to Health Maintenance Results * Imaging Lumbar/Sacral Selective Nerve Root INJ (TFE) Bilateral (62052) (2024 2:57 PM CDT) Narrative [facility] - [...] Findings Committee. J Am Ale Radiol. 2017 Nov;14(8):9899-0111. THIS IS AN ELECTRONICALLY VERIFIED FINAL REPORT 01/11/2022 11:54 AM - Electronically signed by Juan Manuel Pompa M.D. JA: IHSAN Report ID: [id number] Reading Location: [id number] Procedure Note Juan Manuel Pompa MD - [...] Findings Committee. J Am Ale Radiol. 2017 Nov;14(8):0022-1853. THIS IS AN ELECTRONICALLY VERIFIED FINAL REPORT 01/11/2022 11:54 AM - Electronically signed by Juan Manuel Pompa M.D. JA: IHSAN Report ID: [id number] Reading Location: [id number] us Glenn Pope MD IMG CT PROCEDURES F inal Result * PSA screen (03/21/2020 6:23 AM SAFETY INTERN) PSA-Total 0.69 <=5.40 ng/mL AAYUSH SORTO ([place]) Comment: Interpretive Data AGE SEX REFERENCE INTERVAL 0 minutes-150 years Female None 0 minutes-49 years Male None 50-59 years Male 0-3.90 60-69 years Male 0-5.40 70-79 years Male 0-6.20 80-150 years Male 0-6.20 Current interpretive data last revised 2018. Testing performed by: [facility], [address] [place] [address], [place]., [address] Blood specimen (specimen) 03/21/2020 6:23 AM SAFETY INTERN 03/21/2020 12:25 PM SAFETY INTERN Ta Mares MD LAB BLOOD ORDERABLES Narcisa l Result AAYUSH MACARIO ([place]) 1 [facility] Department [place] [address] * COLONOSCOPY (06/23/2016 12:00 AM SAFETY INTERN) Anatomical Region Laterality Modality Other Narrative 06/23/2016 12:00 AM SAFETY INTERN Ordered by an unspecified provider. Procedure Note ProviderJuan R MD - 06/23/2016 12:00 AM CST PROCEDURE REPORT Patient: STEPHEN MACIEL Service Date: 06/23/2016 Account: [id number] Room No: : 1960 Patient Type: [facility] Attend.: Damian Purcell M.D. Admit Date: [...] Damian Purcell MD On 06/30/2016 12:27 PM SAFETY INTERN Shalonda Ayoub/reina TD: 06/23/2016 09:47 us Historical Provider ENDOSCOPY PROCEDURES Narcisa l Result from Last 3 Months or Most Recently Relevant to Health Maintenance [place] [address] [facility] MEDICARE ADVANTAGE [facility] MEDICARE ADVANTAGE [facility] MDCR HMO REF [facility] Address: [facility] [address] [place] [address] [facility] Advance Directives For more information, please contact: [phone] * Full Code (Latest Code Status on File) Date Activated Date Inactivated Comments 05/17/2023 4:41 PM 05/20/2023 7:52 PM * Full Code Date Activated Date Inactivated Comments 02/17/2022 4:54 PM 02/17/2022 11:16 PM Care Teams Circular Knitter Relationship Specialty Start Date End Date Ta Mares MD [address] [address] PCP - General 04/06/17 Chaz Mobley MD [address] [facility] [address] [place] [address] Consulting Physician Pulmonary Disease 05/20/23
--- NOTE | 2024-11-04 17:41 | PC.NURSE ---
ИВАН VELA, AT THE BEDSIDE CLEANING HEAD WOUND
--- NOTE | 2024-11-04 17:53 | PC.NURSE ---
WOUND TO BACK OF HEAD CLEANED. DR RODRIGUEZ NOTIFIED.
[2024-11-04] MEDS: TETANUS,DIPHTHERIA,AC PERTUSSIS ADULT 0.5 ML (ADACEL) IM (17:57)
--- NOTE | 2024-11-04 18:26 | PC.NURSE ---
DR RODRIGUEZ AND ИВАН VELA, AT THE BEDSIDE FOR LACERATION REPAIR.
== END 2024-11-04 18:52 | disposition home or self-care (01) ==
PROVIDERS: Emergency Provider Emergency Medicine; PCP Family Medicine
DX: J96.11 Chronic respiratory failure with hypoxia (principal); S01.01XA Laceration without foreign body of scalp, initial encounter; F10.920 Alcohol use, unspecified with intoxication, uncomplicated; I48.0 Paroxysmal atrial fibrillation; Z79.01 Long term (current) use of anticoagulants; Z87.891 Personal history of nicotine dependence; Z23 Encounter for immunization; W18.39XA Other fall on same level, initial encounter
CPT/HCPCS: 12001; 70450; 71045; 72125; 90471; 90715; 99284